=== PATIENT | male | born 1960 | race African-American/Black ===

== ENCOUNTER 2022-01-01 16:18 | Outpatient (REF) | payer SELFPAY ==
[2022-01-01 16:56] LABS: MANUAL DIFF FLAG NO
[2022-01-01 17:02] LABS: Basophils Percent Auto 0.7 % (0-2); Eosinophils Absolute Auto 0.1 X10*3/uL (0.0-0.4); Eosinophils Percent Auto 3.3 % (0-4); Hematocrit 46.3 % (42.0-52.0); Imm Gran Abs Auto 0.01 X10*3/uL (0.00-0.03); Imm Gran Pct Auto 0.2 % (0.0-0.4); Lymphocytes Absolute Auto 1.9 X10*3/uL (1.2-4.9); Lymphocytes Percent Auto 46.1 % (20-40); Mean Corpuscular HGB Conc 32.4 g/dl (31.0-36.0); Mean Corpuscular Hemoglobin 27.6 pg (27.0-33.0); Mean Corpuscular Volume 85.1 fL (80.0-98.0); Mean Platelet Volume 9.6 fL (9.4-12.4); Monocytes Absolute Auto 0.4 X10*3/uL (0.1-1.2); Monocytes Percent Auto 8.8 % (2-11); Neutrophils Absolute Auto 1.7 x10*3/uL (2.0-8.3); Neutrophils Percent Auto 40.9 % (45-73); Platelet Count 191 X10*3/uL (160-400); Red Blood Count 5.44 X10*6/uL (4.60-5.80); Red Cell Distribution Width 13.6 % (11.0-16.0); White Blood Count 4.2 X10*3/uL (4.8-10.8)
[2022-01-01 17:17] LABS: Alanine Aminotransferase 11 U/L (0-40); Albumin Level 4.6 g/dL (3.5-5.0); Alkaline Phosphatase 74 U/L (39-117); Anion Gap 16 (12-20); Aspartate Amino Transferase 16 U/L (5-37); Bilirubin Direct 0.4 mg/dL (0.0-0.5); Bilirubin Total 0.9 mg/dL (0.0-1.0); Blood Urea Nitrogen 18 mg/dL (9-16); Calcium 10.4 mg/dL (8.4-10.2); Carbon Dioxide 29 mmol/L (22-29); Chloride 101 mmol/L (96-108); Estimated Glomerular Filt Rate 49; Glucose Random 88 mg/dL (60-115); Potassium 4.2 mmol/L (3.3-5.1); Sodium 142 mmol/L (135-145); Total Protein 7.4 g/dL (6.5-8.0)
[2022-01-01 17:35] LABS: Syphilis Screen Nonreactive (Nonreactive)
[2022-01-01 17:37] LABS: PSA,Total (Free>4and<10) 0.55 ng/mL (0.00-4.00)
[2022-01-01 18:38] LABS: Appearance Urine CLEAR; Color Urine YELLOW; Glucose Urine UA NEG (NEG); Leukocyte Esterase Urine NEG (NEG); Nitrite Urine NEG (NEG); Specific Gravity - Urine 1.015 (1.005-1.025); Urine Blood NEG (NEG); Urine Ketones NEG (NEG); Urine Protein NEG (NEG-TRACE)
[2022-01-04 03:52] LABS: HBc Num1 6.36 S/CO (0.00-0.79); HBsAGNum1 0.18 S/CO (0.00-0.99); Hepatitis B Surface Antigen Negative (Negative); ~HepC Num1 0.07 S/CO (0.00-0.79); ~Hepatitis B Surface Antibody REACTIVE (Nonreactive); ~Hepatitis C Antibody Nonreactive (Nonreactive)
[2022-01-04 04:28] LABS: HBc Num2 6.24 S/CO; HBc Num3 6.33 S/CO; Hepatitis B Core Antibody Reactive (Nonreactive)
[2022-01-04 11:32] LABS: Absolute CD3 Count 1515 cells/uL (840-3060); Absolute CD4 Count 432 cells/uL (490-1740); Absolute CD8 Count 1080 cells/uL (180-1170); Absolute Lymphocytes 1845 cells/uL (850-3900); Percent CD3 Cells 82 % (57-85); Percent CD4 Cells 23 % (30-61); Percent CD8 Cells 59 % (12-42)
[2022-01-05 13:32] LABS: HIV RNA PCR Qn Copies <20 DETECTED copies/mL (NOT DETECTED); HIV RNA PCR Qn Log Copies <1.30 DETECTED (NOT DETECTED)
[2022-01-05 21:06] LABS: TS Negative Control Passed; TS Panel A 0; TS Panel B 0; TS Positive Control Passed; TSpotTB Negative (Negative)
[2022-01-06 05:01] LABS: Hepatitis A Antibody IgG Nonreactive (Nonreactive); ~Hepatitis A Antibody IgG 0.64 S/CO (0.00-0.99)
== END 2022-01-01 16:19 | disposition home or self-care (01) ==
LOC: HO.LAB 16:18
PROVIDERS: PCP Internal Medicine; Visit Provider Internal Medicine
DX: B20 Human immunodeficiency virus [HIV] disease (principal); M81.0 Age-related osteoporosis without current pathological fracture; K62.82 Dysplasia of anus; I10 Essential (primary) hypertension; Z86.19 Personal history of other infectious and parasitic diseases; Z86.73 Personal history of transient ischemic attack (TIA), and cerebral infarction without residual deficits; Z12.5 Encounter for screening for malignant neoplasm of prostate
CPT/HCPCS: 36415; 80048; 80076; 81003; 84153; 85025; 86359; 86360; 86481; 86704; 86706; 86708; 86780; 86803; 87340; 87536; 99202

== ENCOUNTER 2022-06-14 16:24 | Outpatient (REF) | payer OTHER, SELFPAY ==
[2022-06-14 16:45] LABS: MANUAL DIFF FLAG NO
[2022-06-14 18:00] LABS: Basophils Absolute Auto 0.1 X10*3/uL (0.0-0.2); Basophils Percent Auto 0.8 % (0-2); Eosinophils Absolute Auto 0.2 X10*3/uL (0.0-0.4); Eosinophils Percent Auto 2.8 % (0-4); Hematocrit 40.8 % (42.0-52.0); Hemoglobin 13.4 g/dl (14.0-18.0); Imm Gran Abs Auto 0.05 X10*3/uL (0.00-0.03); Imm Gran Pct Auto 0.8 % (0.0-0.4); Lymphocytes Absolute Auto 2.7 X10*3/uL (1.2-4.9); Lymphocytes Percent Auto 44.3 % (20-40); Mean Corpuscular HGB Conc 32.8 g/dl (31.0-36.0); Mean Corpuscular Hemoglobin 29.6 pg (27.0-33.0); Mean Corpuscular Volume 90.3 fL (80.0-98.0); Monocytes Absolute Auto 0.5 X10*3/uL (0.1-1.2); Monocytes Percent Auto 7.5 % (2-11); Neutrophils Absolute Auto 2.7 x10*3/uL (2.0-8.3); Neutrophils Percent Auto 43.8 % (45-73); Platelet Count 198 X10*3/uL (160-400); Red Blood Count 4.52 X10*6/uL (4.60-5.80); Red Cell Distribution Width 13.5 % (11.0-16.0); White Blood Count 6.1 X10*3/uL (4.8-10.8)
[2022-06-14 18:11] LABS: Alanine Aminotransferase 12 U/L (0-40); Albumin Level 4.5 g/dL (3.5-5.0); Alkaline Phosphatase 97 U/L (39-117); Anion Gap 14 (12-20); Aspartate Amino Transferase 19 U/L (5-37); Bilirubin Direct 0.5 mg/dL (0.0-0.5); Bilirubin Total 1.6 mg/dL (0.0-1.0); Blood Urea Nitrogen 17 mg/dL (9-16); Carbon Dioxide 28 mmol/L (22-29); Chloride 104 mmol/L (96-108); Estimated Glomerular Filt Rate 44; Glucose Random 87 mg/dL (60-115); Potassium 4.1 mmol/L (3.3-5.1); Sodium 142 mmol/L (135-145); Total Protein 7.2 g/dL (6.5-8.0)
[2022-06-14 18:24] LABS: Syphilis Screen Nonreactive (Nonreactive)
[2022-06-15 01:30] LABS: CT PCR NOT DETECTED (Not Detect.); NG PCR NOT DETECTED (Not Detect.)
[2022-06-15 12:53] LABS: Absolute CD3 Count 2128 cells/uL (840-3060); Absolute CD4 Count 557 cells/uL (490-1740); Absolute CD8 Count 1539 cells/uL (180-1170); Absolute Lymphocytes 2769 cells/uL (850-3900); CD4 CD8 Ratio 0.36 (0.86-5.00); Percent CD3 Cells 77 % (57-85); Percent CD4 Cells 20 % (30-61); Percent CD8 Cells 56 % (12-42)
[2022-06-16 07:58] LABS: ~HepC Num1 0.12 S/CO (0.00-0.79); ~Hepatitis C Antibody Nonreactive (Nonreactive)
[2022-06-17 17:33] LABS: HIV RNA PCR Qn Copies NOT DETECTED copies/mL (NOT DETECTED); HIV RNA PCR Qn Log Copies NOT DETECTED (NOT DETECTED)
== END 2022-06-14 16:25 | disposition home or self-care (01) ==
LOC: HO.LAB 16:24
PROVIDERS: PCP Internal Medicine; Visit Provider Internal Medicine
DX: B20 Human immunodeficiency virus [HIV] disease (principal)
CPT/HCPCS: 0353U; 80048; 80076; 85025; 86359; 86360; 86780; 86803; 87536

== ENCOUNTER → 2022-06-28 09:48 | Outpatient (BNVA) | payer OTHER, SELFPAY | PROVIDERS: PCP Internal Medicine; Visit Provider Internal Medicine | DX: B20 Human immunodeficiency virus [HIV] disease (principal) | CPT/HCPCS: 99212 ==

== ENCOUNTER 2022-12-22 08:11 | Outpatient (REF) | payer OTHER, SELFPAY ==
[2022-12-22 09:33] LABS: MANUAL DIFF FLAG NO
[2022-12-22 10:04] LABS: Hematocrit 43.9 % (42.0-52.0); Hemoglobin 13.9 g/dl (14.0-18.0); Imm Gran Pct Auto 0.3 % (0.0-0.4); Lymphocytes Percent Auto 53.4 % (20-40); Mean Corpuscular HGB Conc 31.7 g/dl (31.0-36.0); Mean Corpuscular Hemoglobin 29.5 pg (27.0-33.0); Mean Corpuscular Volume 93.2 fL (80.0-98.0); Mean Platelet Volume 10.1 fL (9.4-12.4); Monocytes Percent Auto 7.8 % (2-11); Neutrophils Percent Auto 31.2 % (45-73); Platelet Count 171 X10*3/uL (160-400); Red Blood Count 4.71 X10*6/uL (4.60-5.80); Red Cell Distribution Width 11.6 % (11.0-16.0); White Blood Count 3.8 X10*3/uL (4.8-10.8)
[2022-12-22 10:05] LABS: Basophils Absolute Auto 0.1 X10*3/uL (0.0-0.2); Basophils Percent Auto 1.3 % (0-2); Eosinophils Absolute Auto 0.2 X10*3/uL (0.0-0.4); Imm Gran Abs Auto 0.01 X10*3/uL (0.00-0.03); Lymphocytes Absolute Auto 2.1 X10*3/uL (1.2-4.9); Monocytes Absolute Auto 0.3 X10*3/uL (0.1-1.2); Neutrophils Absolute Auto 1.2 x10*3/uL (2.0-8.3)
[2022-12-22 10:52] LABS: Alanine Aminotransferase 14 U/L (0-40); Albumin Level 4.1 g/dL (3.5-5.0); Alkaline Phosphatase 88 U/L (39-117); Anion Gap 14 (12-20); Aspartate Amino Transferase 17 U/L (5-37); Bilirubin Direct 0.2 mg/dL (0.0-0.5); Bilirubin Total 0.3 mg/dL (0.0-1.0); Blood Urea Nitrogen 10 mg/dL (9-16); Carbon Dioxide 27 mmol/L (22-29); Chloride 105 mmol/L (96-108); Estimated Glomerular Filt Rate 45; Glucose Random 97 mg/dL (60-115); Potassium 3.6 mmol/L (3.3-5.1); Sodium 142 mmol/L (135-145); Total Protein 6.8 g/dL (6.5-8.0)
[2022-12-22 11:45] LABS: Syphilis Screen Nonreactive (Nonreactive)
[2022-12-23 12:48] LABS: CT PCR NOT DETECTED (Not Detect.); NG PCR NOT DETECTED (Not Detect.)
[2022-12-24 03:38] LABS: C. trachomatis RNA TMA NOT DETECTED (NOT DETECTED); N. gonorrhoeae RNA TMA NOT DETECTED (NOT DETECTED)
[2022-12-24 10:38] LABS: Absolute CD3 Count 1591 cells/uL (840-3060); Absolute CD4 Count 363 cells/uL (490-1740); Absolute CD8 Count 1226 cells/uL (180-1170); Absolute Lymphocytes 1968 cells/uL (850-3900); Percent CD3 Cells 81 % (57-85); Percent CD4 Cells 18 % (30-61); Percent CD8 Cells 62 % (12-42)
[2022-12-24 13:12] LABS: HIV RNA PCR Qn Copies NOT DETECTED copies/mL (NOT DETECTED); HIV RNA PCR Qn Log Copies NOT DETECTED (NOT DETECTED)
== END 2022-12-22 08:12 | disposition home or self-care (01) ==
LOC: HO.LAB 08:11
PROVIDERS: Absent Provider Internal Medicine; PCP Internal Medicine; Referring Provider Internal Medicine; Visit Provider Surgery
DX: B20 Human immunodeficiency virus [HIV] disease (principal); Z87.19 Personal history of other diseases of the digestive system
CPT/HCPCS: 0353U; 36415; 46600; 80048; 80076; 85025; 86359; 86360; 86780; 87491; 87536; 87591; 99202

== ENCOUNTER 2022-12-22 08:11 | Outpatient (AMB) | payer OTHER, SELFPAY ==
[2022-12-22 08:18] VITALS: BP 143/90; PULSE 53; BMI 24.3
--- NOTE | 2022-12-22 08:18 | MHC.OFFVIS ---
Intake Vital Signs 12/22/22 08:18 Height 5 ft 8 in Weight 160 lb BMI 24.3 BP 143/90 H Blood Pressure Location Rt brachial Position Sitting Pulse 53 Intake Visit Reasons: Malignant neoplasm of rectum Intake Note: This patient presents for an assessment for malignant neoplasm of the rectum. Patient c/o; denies rectal bleeding, pain or pressure. Supervisor Reclamation Required: No Accompanied by: Self / Same As Patient Allergies No Known Allergies Allergy (Verified 12/22/22 08:24) Medication List - Last Reconciled 12/22/22 by Jevon Caruso MD alendronate 70 mg PO QWEEK aspirin 81 mg PO DAILY atorvastatin 80 mg PO BEDTIME calcium carb-vitamin D3-vit K2 500 mg calcium- 200 unit-90 mcg tabs PO cholecalciferol (vitamin D3) 50 mcg PO DAILY cyanocobalamin (vitamin B-12) 1,000 mcg PO DAILY dolutegravir 50 mg PO DAILY dolutegravir-rilpivirine 50-25 mg (Juluca) 1 tab PO DAILY 90 days hydrochlorothiazide 25 mg PO DAILY loratadine 10 mg PO DAILY magnesium citrate 100 mg PO DAILY metoprolol succinate ER 50 mg PO DAILY HPI Malignant neoplasm of rectum HPI Details 62-year-old male referred for a history of AIN 3. He has a history of HIV, CVA, hypertension and had undergone high-resolution anoscopy in 2018 which showed AIN 3. This had been excise but he had positive margins at that time so a repeat HRA was done with further excision at the left lateral anal margin. This time, there was negative margins and he continued to have had [facility]. His last 1 was in November,. He had recently moved the area and therefore referred to me for surveillance of his history of AIN III. He denies any comes with bowel movements. He denies any blood per rectum. He does admit to have history of anal receptive intercourse but has had a single partner for 17 years. [facility] Medical History (Updated 12/22/22 @ 08:56 by Jevon Caruso MD) Anal dysplasia H/O chlamydia infection H/O: CVA (cerebrovascular accident) History of anal dysplasia HIV (human immunodeficiency virus infection) Hypertension Osteoporosis Surgical History History of testicular surgery Family History Mother Lung cancer Father Prostate cancer Social History Alcohol intake: current Alcohol intake frequency: holidays/special occasions only Patient Tobacco Use Status: Never used Tobacco Review of Systems Const Denies chills and Denies fever(s) Card Denies chest pain, Denies dyspnea and Denies dyspnea on exertion Resp Denies cough, Denies dyspnea and Denies dyspnea on exertion GI Denies hematochezia and Denies change in bowel habits Denies hematuria and Denies difficulty urinating Musc Denies back pain and Denies limited range of motion Neuro Denies focal weakness and Denies convulsions Psych Denies depression and Denies mood swings Physical Exam Vital Signs: Last Vital Signs Pulse 53 12/22/22 08:18 BP 143/90 H 12/22/22 08:18 BMI result Body Mass Index 24.3 Const General: comfortable and no acute distress Orientation/consciousness: patient oriented x3 Neck Neck: Yes no lymphadenopathy Resp Auscultation: clear to auscultation bilaterally Cardio Rhythm: regular rhythm GI Other: Rectal exam shows small external hemorrhoids on both the left and right side, anoscopy as described Palpation (GI): Soft to palpation, nontender and no guarding Neuro General: patient oriented x3 Office Procedures Anoscopy He was in chris-knife position. The anoscope was gently inserted and a full examination of the entire anal canal was done. There were no lesions seen. There was no abnormal looking mucosa or or anoderm. There was no fissure nor ulceration. He did have small internal external hemorrhoids. There was no induration or tenderness on digital exam. [id number] Assessment & Plan Assessment & Plan (1) History of anal dysplasia: Code(s): Z87.19 - Personal history of other diseases of the digestive system Plan: He had a history of AIN 3 in 2018. He has had high-resolution anoscopy since 2019 which have been negative any suggestion of any residual or recurrent lesion. I repeated his anoscopy. Findings are unremarkable without any normal-looking mucosa or anoderm. I explained to him that literature has shown that as long as patient's work follow closely with regular office visits every 3-12 months for exam and anoscopy and biopsy all of new or suspicious lesions, it is rare that there is note of progression of the dysplasia to cancer. I therefore explained to him that since he is new to me, I would repeat the anoscopy in 6 months. He says he understands the plan and is comfortable with this. Coding Level of Care Code New Pt Level 4 (68080) Diagnoses History of anal dysplasia Z87.19 CPT Codes Details - CPT: 16061-[id number] ([id number])
== END 2022-12-22 08:53 | disposition home or self-care (01) ==
PROVIDERS: PCP Internal Medicine; Referring Provider Internal Medicine; Visit Provider Surgery
DX: Z87.19 Personal history of other diseases of the digestive system (principal)
CPT/HCPCS: 46600; 99204

== ENCOUNTER 2022-12-27 10:51 | Outpatient (AMB) | payer OTHER, SELFPAY ==
--- NOTE | 2022-12-27 11:05 | MHC.OFFVIS ---
Intake Vital Signs 12/27/22 11:06 Height 5 ft 8 in Weight 162 lb BMI 24.6 BP 148/86 H Pulse 62 Pulse Oximetry (%) 99 Intake Visit Reasons: 6 mth. F/U Allergies No Known Allergies Allergy (Verified 12/27/22 11:05) HPI 6 mth. F/U HPI Details He is here for evaluation HIV care. He has been taking Juluca daily. On 12/22 his CD4 count is 363 and viral load undetectable. He does have osteoporosis and has been taking alendronate. He has no concerns. He does get GI evaluation screen rectal cancer Pap. [facility] Medical History Anal dysplasia H/O chlamydia infection H/O: CVA (cerebrovascular accident) History of anal dysplasia HIV (human immunodeficiency virus infection) Hypertension Osteoporosis Surgical History History of testicular surgery Family History Mother Lung cancer Father Prostate cancer Social History Alcohol intake: current Alcohol intake frequency: holidays/special occasions only Patient Tobacco Use Status: Never used Tobacco Review of Systems Const All systems reviewed & are unremarkable except as noted in HPI and below Physical Exam Vital Signs: Last Vital Signs Pulse 62 12/27/22 11:06 BP 148/86 H 12/27/22 11:06 Pulse Ox 99 12/27/22 11:06 BMI result Body Mass Index 24.6 Const General: cooperative Orientation/consciousness: patient oriented x3 HEENT Head: Yes normal to inspection Mouth: Normal oral and palatal mucosa present Eyes General: appearance normal, both eyes and all related structures Pupils: Equal, round and reactive pupils present Resp Effort & Inspection: normal respiratory effort Cardio Rate: regular rate Rhythm: regular rhythm GI Palpation (GI): Soft to palpation and nontender General: Yes no CVA tenderness Back/Spine/Pelvis Back: no CVA tenderness Skin General skin exam: no rashes or lesions noted Neuro General: patient oriented x3 Cranial nerves: Yes CN's II-XII intact bilaterally and Yes Equal, round and reactive pupils present Extrem General: Yes normal to inspection Psych Appearance: grossly normal Assessment & Plan Assessment & Plan (1) HIV (human immunodeficiency virus infection): Comment: He is doing well and has no complaints CD4 count and viral load are appropriate Code(s): B20 - Human immunodeficiency virus [HIV] disease Plan: Renew Juluca (dolutegravir/rilpivirine for six months. Labs ordered six months PCP should check digital rectal exam and PSA. Be sure colon eval/rectal Pap UTD. See in six months. (2) History of anal dysplasia: Code(s): Z87.19 - Personal history of other diseases of the digestive system Orders: Orders Lymphocyte Subset Panel 3 6 Months B20 - Human immunodeficiency virus [HIV] disease Hepatitis C Antibody 6 Months B20 - Human immunodeficiency virus [HIV] disease HIV-1 RNA QN PCR Expanded 6 Months B20 - Human immunodeficiency virus [HIV] disease Syphilis Screen 6 Months B20 - Human immunodeficiency virus [HIV] disease Medications: Refilled dolutegravir-rilpivirine 50-25 mg (Juluca) must administer with a meal/food 1 tab PO DAILY 90 tabs 1RF 90 days Coding Level of Care Code Est Pt Level 4 (63334) Diagnoses HIV (human immunodeficiency virus infection) B20 History of anal dysplasia Z87.19
[2022-12-27 11:06] VITALS: BP 148/86; PULSE 62; O2SAT 99; BMI 24.6
== END 2022-12-27 13:12 | disposition home or self-care (01) ==
LOC: HO.HID 10:51
PROVIDERS: PCP Internal Medicine; Visit Provider Internal Medicine
DX: B20 Human immunodeficiency virus [HIV] disease (principal); Z87.19 Personal history of other diseases of the digestive system
CPT/HCPCS: 99214

== ENCOUNTER → 2022-12-27 10:51 | Outpatient (BNVA) | payer OTHER, SELFPAY | PROVIDERS: PCP Internal Medicine; Visit Provider Internal Medicine | DX: B20 Human immunodeficiency virus [HIV] disease (principal); Z87.19 Personal history of other diseases of the digestive system | CPT/HCPCS: 99212 ==

== ENCOUNTER 2023-06-21 13:42 | Outpatient (REF) | payer OTHER, SELFPAY ==
[2023-06-21 15:03] LABS: Syphilis Screen Nonreactive (Nonreactive)
[2023-06-22 05:55] LABS: ~HepC Num1 0.08 S/CO (0.00-0.79); ~Hepatitis C Antibody Nonreactive (Nonreactive)
[2023-06-22 10:13] LABS: Absolute CD3 Count 1585 cells/uL (840-3060); Absolute CD4 Count 383 cells/uL (490-1740); Absolute CD8 Count 1193 cells/uL (180-1170); Absolute Lymphocytes 1974 cells/uL (850-3900); CD4 CD8 Ratio 0.32 (0.86-5.00); Percent CD3 Cells 80 % (57-85); Percent CD4 Cells 19 % (30-61); Percent CD8 Cells 60 % (12-42)
[2023-06-23 14:09] LABS: HIV RNA PCR Qn Copies NOT DETECTED copies/mL (NOT DETECTED); HIV RNA PCR Qn Log Copies NOT DETECTED (NOT DETECTED)
== END 2023-06-21 13:43 | disposition home or self-care (01) ==
LOC: HO.LAB 13:42
PROVIDERS: PCP Internal Medicine; Visit Provider Internal Medicine
DX: B20 Human immunodeficiency virus [HIV] disease (principal)
CPT/HCPCS: 36415; 86359; 86360; 86780; 86803; 87536

== ENCOUNTER 2023-06-27 10:41 | Outpatient (AMB) | payer OTHER, SELFPAY ==
[2023-06-27 11:02] VITALS: BP 130/87; PULSE 59; BMI 24.6
--- NOTE | 2023-06-27 11:02 | MHC.OFFVIS ---
Intake Vital Signs 06/27/23 11:02 Height 5 ft 8 in Weight 162 lb BMI 24.6 BP 130/87 Blood Pressure Location Rt brachial Position Sitting Pulse 59 Intake Visit Reasons: 6 month fu, malignant neoplasm of rectum Intake Note: This patient presents for a six month follow-up assessment for malignant neoplasm of rectum. Patient c/o; report no complaints at this time. 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 He had exci shaw of a lesion i n 2018 in the anal canal which showe d AIN 3 and had po sitive margins at at that time. He was in [place] then. 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 He had move d to the area and I therefore saw kristi roberts last year. I bella cecilia done an anoscopy 6 months ago whic h did not reveal a ny lesions. He de nies any problems with bowel movemen ts. He denies any blood per rectum. He admits to [facility] ourse with a singl e partner. . [facility] Medical History Anal dysplasia H/O chlamydia infection H/O: CVA (cerebrovascular accident) History of anal dysplasia HIV (human immunodeficiency virus infection) Hypertension Osteoporosis Surgical History History of testicular surgery Family History Mother Lung cancer Father Prostate cancer Social History Alcohol intake: current Alcohol intake frequency: holidays/special occasions only Patient Tobacco Use Status: Never used Tobacco Review of Systems Const Denies chills and Denies fever(s) Card Denies chest pain, Denies dyspnea and Denies dyspnea on exertion Resp Denies cough, Denies dyspnea and Denies dyspnea on exertion GI Denies hematochezia and Denies change in bowel habits Denies hematuria and Denies difficulty urinating Musc Denies back pain and Denies limited range of motion Neuro Denies focal weakness and Denies convulsions Psych Denies depression and Denies mood swings Physical Exam Vital Signs: Last Vital Signs Pulse 59 06/27/23 11:02 BP 130/87 06/27/23 11:02 BMI result Body Mass Index 24.6 Const General: comfortable and no acute distress Orientation/consciousness: patient oriented x3 Neck Neck: Yes no lymphadenopathy Resp Auscultation: clear to auscultation bilaterally Cardio Rhythm: regular rhythm GI Other: Rectal exam shows external hemorrhoids on both the left and right side, non bulky, no perianal lesions Palpation (GI): Soft to palpation, nontender and no guarding Neuro General: patient oriented x3 Office Procedures Anoscopy He was in chris-knife position. The anoscope was gently inserted. A full examination of the anal canal was done. Had mixed internal external hemorrhoids on both the left and right side. There were no lesions. There was no obvious changes in the anal lining. There was no induration on digital exam. There was no fissure or ulceration [id number] Assessment & Plan Assessment & Plan (1) History of anal dysplasia: Code(s): Z87.19 - Personal history of other diseases of the digestive system Plan: Rectal exam and anoscopy today does not reveal any suspicious lesions or any ulceration. He does have hemorrhoids. I would recommend seeing him again in about 6 months to repeat his anoscopy. Depending on findings then, we may be able to extend surveillance interval to about 12 months thereafter. He is comfortable with the plan above. Coding Level of Care Code Est Pt Level 3 (18942) Diagnoses History of anal dysplasia Z87.19 CPT Codes Details - CPT: 09053-[id number] ([id number])
== END 2023-06-27 11:22 | disposition home or self-care (01) ==
PROVIDERS: PCP Internal Medicine; Visit Provider Surgery
DX: K64.4 Residual hemorrhoidal skin tags (principal); Z86.002 Personal history of in-situ neoplasm of other and unspecified genital organs
CPT/HCPCS: 46600; 99213

== ENCOUNTER → 2023-06-27 10:41 | Outpatient (BNVA) | payer OTHER, SELFPAY | PROVIDERS: PCP Internal Medicine; Visit Provider Surgery | DX: K64.8 Other hemorrhoids (principal); K64.4 Residual hemorrhoidal skin tags; Z87.19 Personal history of other diseases of the digestive system | CPT/HCPCS: 46600; 99212 ==

== ENCOUNTER 2023-07-01 11:19 | Outpatient (AMB) | payer OTHER, SELFPAY ==
--- NOTE | 2023-07-01 11:29 | MHC.OFFVIS ---
Intake Vital Signs 07/01/23 11:34 Height 5 ft 8 in Weight 164 lb BMI 24.9 Pulse 84 Pulse Source Pulse Oximeter Pulse Oximetry (%) 98 Oxygen Delivery Method Room Air Intake Visit Reasons: 6 mth lab Allergies No Known Allergies Allergy (Verified 07/01/23 11:35) HPI HPI Comments History of Present Illness Details He has CD4 count of 383 and viral load undetectable, He has no compliaints, PFSH Medical History History of anal dysplasia Osteoporosis H/O chlamydia infection Anal dysplasia Hypertension H/O: CVA (cerebrovascular accident) HIV (human immunodeficiency virus infection) Surgical History History of testicular surgery Family History Mother Lung cancer Father Prostate cancer Social History Alcohol intake: current Alcohol intake frequency: holidays/special occasions only Patient Tobacco Use Status: Never used Tobacco Review of Systems Const All systems reviewed & are unremarkable except as noted in HPI and below Physical Exam Vital Signs: Last Vital Signs Pulse 84 07/01/23 11:34 Pulse Ox 98 07/01/23 11:34 Oxygen Delivery Method Room Air 07/01/23 11:34 BMI result Body Mass Index 24.9 Const General: cooperative Orientation/consciousness: patient oriented x3 HEENT Head: Yes normal to inspection Mouth: Normal oral and palatal mucosa present Eyes General: appearance normal, both eyes and all related structures Pupils: Equal, round and reactive pupils present Resp Effort & Inspection: normal respiratory effort Cardio Rate: regular rate Rhythm: regular rhythm GI Palpation (GI): Soft to palpation and nontender General: Yes no CVA tenderness Back/Spine/Pelvis Back: no CVA tenderness Skin General skin exam: no rashes or lesions noted Neuro General: patient oriented x3 Cranial nerves: Yes CN's II-XII intact bilaterally and Yes Equal, round and reactive pupils present Extrem General: Yes normal to inspection Psych Appearance: grossly normal Assessment & Plan Assessment & Plan (1) HIV (human immunodeficiency virus infection): Comment: He is doing well and has no complaints CD4 count and viral load are appropriate Code(s): B20 - Human immunodeficiency virus [HIV] disease Plan: Continue Caterina See in six months with labs before. Coding Level of Care Code Est Pt Level 4 (13469) Diagnoses HIV (human immunodeficiency virus infection) B20
[2023-07-01 11:34] VITALS: PULSE 84; O2SAT 98; BMI 24.9
== END 2023-07-01 12:02 | disposition home or self-care (01) ==
LOC: HO.HID 11:19
PROVIDERS: PCP Internal Medicine; Referring Provider Internal Medicine; Visit Provider Internal Medicine
DX: B20 Human immunodeficiency virus [HIV] disease (principal)
CPT/HCPCS: 99214

== ENCOUNTER → 2023-07-01 11:19 | Outpatient (BNVA) | payer OTHER, SELFPAY | PROVIDERS: PCP Internal Medicine; Visit Provider Internal Medicine | DX: B20 Human immunodeficiency virus [HIV] disease (principal) | CPT/HCPCS: 99212 ==

== ENCOUNTER 2023-08-15 18:11 | Outpatient (REF) | payer OTHER, SELFPAY ==
--- NOTE | ~2023-08-15 | MR_ITS ---
EXAMINATION: MR SHOULDER WITHOUT CONTRAST, RIGHT CLINICAL INFORMATION: Right shoulder pain. COMPARISON: None available. TECHNIQUE: MRI of the shoulder without contrast was performed on a high-field scanner. FINDINGS: ROTATOR CUFF: Moderate supraspinatus and more mild infraspinatus tendinosis. Hezs-hyfk-khzambbgd articular surface tearing involving the entirety of the supraspinatus tendon and extending into the anterior aspect of the infraspinatus tendon measuring up to 3.1 x 4.0 cm (AP x ML). There may be small full-thickness components to the tear anteriorly. Dcoospdq-jn-qgomhr subscapularis tendinosis with articular surface and intrasubstance partial tearing measuring up to 3.7 cm in ML dimension. Probable small full-thickness component to the tear superiorly. No muscle atrophy or fatty infiltration. BICEPS: Flattening and attenuation of the intra-articular long head biceps tendon, consistent with longitudinal partial tearing. CORACOACROMIAL ARCH: The undersurface of the acromion is curved with tiny subacromial spurs. Moderate acromioclavicular osteoarthritis. Trace fluid within the subacromial-subdeltoid bursa, likely indicating a small full-thickness component to the rotator cuff tendon tear. LABRUM/CAPSULE: No labral tear. Intact inferior joint capsule. GLENOHUMERAL JOINT/MARROW: Intact articular cartilage. Srdbg-af-zaoypzmm joint effusion with synovitis. MR/MR shoulder RT wo con IMPRESSION: 1. Moderate supraspinatus and more mild infraspinatus tendinosis. Ywin-gxwo-nezcbsxdv articular surface tearing involving the entirety of the supraspinatus tendon extending into the anterior aspect of the infraspinatus tendon measuring 3.1 x 4.0 cm (AP x ML). There may be small full-thickness components to the tear anteriorly. Gfntckdx-rm-degyhg subscapularis tendinosis with articular surface and intrasubstance partial tearing measuring 3.7 cm in ML dimension. Probable small full-thickness component to the tear superiorly. 2. Longitudinal partial tearing of the intra-articular long head biceps tendon. 3. Moderate acromioclavicular osteoarthritis with tiny subacromial spurs. 4. Xrhqn-gt-upbmqhjg glenohumeral joint effusion with synovitis.
== END 2023-08-15 18:12 | disposition home or self-care (01) ==
LOC: HO.MRI 18:11
PROVIDERS: PCP Internal Medicine; Visit Provider Family Medicine
DX: M25.511 Pain in right shoulder (principal)
CPT/HCPCS: 73221

== ENCOUNTER 2023-12-29 09:36 | Outpatient (REF) | payer OTHER, SELFPAY ==
[2023-12-29 11:19] LABS: ~HepC Num1 0.13 S/CO (0.00-0.79); ~Hepatitis C Antibody Nonreactive (Nonreactive)
[2023-12-30 11:59] LABS: RPR Rapid Plasma Reagin NON-REACTIVE (NON-REACTIVE)
[2023-12-31 15:29] LABS: HIV RNA PCR Qn Copies NOT DETECTED copies/mL (NOT DETECTED); HIV RNA PCR Qn Log Copies NOT DETECTED (NOT DETECTED)
[2024-01-03 11:48] LABS: Absolute CD3 Count 1827 cells/uL (840-3060); Absolute CD4 Count 431 cells/uL (490-1740); Absolute CD8 Count 1375 cells/uL (180-1170); Absolute Lymphocytes 2211 cells/uL (850-3900); CD4 CD8 Ratio 0.31 (0.86-5.00); Percent CD3 Cells 83 % (57-85); Percent CD4 Cells 19 % (30-61); Percent CD8 Cells 62 % (12-42)
== END 2023-12-29 09:37 | disposition home or self-care (01) ==
LOC: HO.LAB 09:36
PROVIDERS: PCP Physician Assistant Medical; Visit Provider Internal Medicine
DX: B20 Human immunodeficiency virus [HIV] disease (principal); Z87.19 Personal history of other diseases of the digestive system
CPT/HCPCS: 36415; 46600; 86359; 86360; 86592; 86803; 87536; 99212

== ENCOUNTER 2023-12-29 09:56 | Outpatient (AMB) | payer OTHER, SELFPAY ==
--- NOTE | 2023-12-29 10:00 | MHC.OFFVIS ---
Vital Signs 12/29/23 10:01 Height 5 ft 8 in Weight 158 lb BMI 24.0 BP 140/88 H Blood Pressure Location Rt brachial Position Sitting Pulse 57 Intake Visit Reasons: 6 month fu, malignant neoplasm of rectum Intake Note: This patient presents for six month follow-up for malignant neoplasm of rectum, anoscopy. Pt c/o; reports no complaints. 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 He had excision of this at that time and was told he had positive margins. He had moved to the area. I had done his anoscopy last June, and this was unremarkable. I recommended a follow-up in about 6 weeks. He denies any new complaints. He denies any problems with his anus at this time. [facility] Medical History History of anal dysplasia Osteoporosis H/O chlamydia infection Anal dysplasia Hypertension H/O: CVA (cerebrovascular accident) HIV (human immunodeficiency virus infection) Surgical History History of testicular surgery Family History Mother Lung cancer Father Prostate cancer Social History Alcohol intake: current Alcohol intake frequency: holidays/special occasions only Patient Tobacco Use Status: Never used Tobacco Review of Systems Const Denies chills and Denies fever(s) Card Denies chest pain, Denies dyspnea and Denies dyspnea on exertion Resp Denies cough, Denies dyspnea and Denies dyspnea on exertion GI Denies hematochezia and Denies change in bowel habits Denies hematuria and Denies difficulty urinating Musc Denies back pain and Denies limited range of motion Neuro Denies focal weakness and Denies convulsions Psych Denies depression and Denies mood swings Physical Exam Const General: comfortable and no acute distress Resp Effort & Inspection: normal respiratory effort GI Other: Rectal exam shows small external hemorrhoids, on the left and right side. There were no skin lesions in the perianal area Office Procedures Anoscopy He was in chris-knife position. The anoscope was gently inserted. A full examination of the anal canal was done. He did have internal and external hemorrhoids, non bulky, on both the left and right side. There were no obvious lesions. No fissure or ulceration was seen. There was no bleeding. There was no induration on digital exam [id number] Assessment & Plan Assessment & Plan (1) History of anal dysplasia: Code(s): Z87.19 - Personal history of other diseases of the digestive system Category: Medical Plan: Anoscopy does not reveal any lesions or any suggestion of dysplasia. He does have internal external hemorrhoids. This appeared to be unchanged from before. He denies any anal complaints It has been 6 years since he had excision of his AIN 3 in [place]. Since his anoscopy so been unremarkable, I told him that we can extend interval to about 1 year. He says he is comfortable with this. I did tell him that if he has any concerns down the line, he can come to the office earlier than that. Coding Level of Care Code Est Pt Level 3 (10176) Diagnoses History of anal dysplasia Z87.19 CPT Codes Details - CPT: [id number] ([id number])
[2023-12-29 10:01] VITALS: BP 140/88; PULSE 57; BMI 24.0
== END 2023-12-29 10:18 | disposition home or self-care (01) ==
PROVIDERS: PCP Internal Medicine; Visit Provider Surgery
DX: Z87.19 Personal history of other diseases of the digestive system (principal)
CPT/HCPCS: 46600; 99213

== ENCOUNTER 2024-01-09 13:12 | Outpatient (AMB) | payer OTHER, SELFPAY ==
[2024-01-09 13:18] VITALS: PULSE 62; O2SAT 95; BMI 24.5
--- NOTE | 2024-01-09 13:18 | A.OFFVIS_ITS ---
Vital Signs 01/09/24 13:18 Height 5 ft 8 in Weight 161 lb BMI 24.5 Pulse 62 Pulse Source Pulse Oximeter Pulse Oximetry (%) 95 Oxygen Delivery Method Room Air Intake Visit Reasons: follow up hiv labs Allergies lisinopril Allergy (Unknown, Uncoded 01/09/24 13:28) swollen legs HPI HPI follow up hiv labs: Details: He has been doing well. He has CD4 count of 431 and viral load undetectable on 12/28. He has been taking Juluca [facility] Medical History History of anal dysplasia Osteoporosis H/O chlamydia infection Anal dysplasia Hypertension H/O: CVA (cerebrovascular accident) HIV (human immunodeficiency virus infection) Surgical History History of testicular surgery Family History Mother Lung cancer Father Prostate cancer Social History Alcohol intake: current Alcohol intake frequency: holidays/special occasions only Patient Tobacco Use Status: Never used Tobacco Review of Systems Const All systems reviewed & are unremarkable except as noted in HPI and below Physical Exam Vital Signs: Last Vital Signs Pulse 62 01/09/24 13:18 Pulse Ox 95 01/09/24 13:18 Oxygen Delivery Method Room Air 01/09/24 13:18 BMI result Body Mass Index 24.5 Const General: cooperative HEENT Head: Yes normal to inspection Face and sinus: Yes normal facial exam Mouth: Normal oral and palatal mucosa present Teeth and gingiva: dentition normal Eyes General: appearance normal, both eyes and all related structures Pupils: Equal, round and reactive pupils present Resp Effort & Inspection: normal respiratory effort Cardio Rate: regular rate Rhythm: regular rhythm GI Palpation (GI): Soft to palpation and nontender General: Yes no CVA tenderness Back/Spine/Pelvis Back: no CVA tenderness Skin General skin exam: no rashes or lesions noted Neuro General: moves all extremities Cranial nerves: Yes Equal, round and reactive pupils present Extrem General: Yes normal to inspection Psych Appearance: grossly normal Assessment & Plan Assessment & Plan (1) HIV (human immunodeficiency virus infection): Comment: He is doing well and has no complaints CD4 count and viral load are appropriate Code(s): B20 - Human immunodeficiency virus [HIV] disease Category: Medical (2) History of anal dysplasia: Comment: Would continue Juluca Code(s): Z87.19 - Personal history of other diseases of the digestive system Category: Medical Plan: Check HIV viral load and CD4 count in six months. Continue Juluca Plan Followup anal Pap will check with his surgeon Medications: Refilled dolutegravir-rilpivirine 50-25 mg (Caterina) must administer with a meal/food 1 tab PO DAILY 90 tabs 1RF 90 days Coding Level of Care Code Est Pt Level 4 (95420) Diagnoses HIV (human immunodeficiency virus infection) B20 History of anal dysplasia Z87.19
== END 2024-01-09 14:45 | disposition home or self-care (01) ==
LOC: HO.HID 13:13
PROVIDERS: PCP Physician Assistant Medical; Visit Provider Internal Medicine
DX: B20 Human immunodeficiency virus [HIV] disease (principal); Z87.19 Personal history of other diseases of the digestive system
CPT/HCPCS: 99214

== ENCOUNTER → 2024-01-09 13:12 | Outpatient (BNVA) | payer OTHER, SELFPAY | PROVIDERS: PCP Physician Assistant Medical; Visit Provider Internal Medicine | DX: B20 Human immunodeficiency virus [HIV] disease (principal); Z87.19 Personal history of other diseases of the digestive system | CPT/HCPCS: 99212 ==

== ENCOUNTER 2024-06-23 10:03 | Outpatient (REF) | payer OTHER, SELFPAY ==
--- OUTSIDE RECORDS SUMMARY | 2024-06-23 10:06 | XMS_ITS | Clinical Summary ---
Author Organization [facility] Address [address] [place] [address] Care Team Providers Care Visual Merchandising Coordinator Name Role Phone Unavailable Primary Care Provider Unavailabl e Allergies Active Allergy Reactions Criticality Noted Date Comments Lisinopril Hives 09/11/2013 Medications alendronate (Fosamax) 70 MG tablet Take 70 mg by mouth. 06/01/2023 Active aspirin 81 MG chewable tablet 81 mg. 01/19/2011 Act raven atorvastatin (Lipitor) 80 MG tablet Take 80 mg by mouth. 06/01/2023 Active cholecalciferol (Vitamin D-3) 50 MCG (1999 UT) tablet Take 50 mcg by mouth. 06/01/2023 Active dolutegravir-ril pivirine (Juluca) 50-25 MG tablet Take by mouth. 07/08/2023 Active hydroCHLOROthiaz wallace (HYDRODiuril) 25 MG tablet Take 12.5 mg by mouth. 06/01/2023 Active metoprolol succinate XL (Toprol-XL) 25 MG 24 hr tablet Take 25 mg by mouth. 06/01/2023 Active Social History Tobacco Use Types Packs/Day Years Used Date Smoking Tobacco: Never Smokeless Tobacco: Never Tobacco Cessation:Counseling Given: Not Answered Sex and Gender Information Value Date Recorded Sex Assigned at Male 09/08/2023 1:32 PM EDT Legal Sex Male 1:28 PM EDT Gender Identity Male 09/08/2023 1:32 PM EDT Sexual Orientation Choose not to disclose 2023 1:32 PM EDT Last Filed Vital Signs Vital Sign Reading Time Taken Comments Blood Pressure 137/75 12/01/2023 10:12 AM EDT Pulse 65 12/01/2023 10:12 AM EDT Temperature - - Respiratory Rate - - Oxygen Saturation - - Inhaled Oxygen Concentration - - Weight - - Height - - Body Mass Index - - Plan of Treatment Health Maintenance Due Date Last Done Comments CT Colonography 1961 Colonoscopy 1961 Colorectal Cancer Screening 1961 Dental Prophylaxis 1961 Depression Screening 1961 FIT DNA/Cologuard 1961 FIT 1961 FOBT 1961 HIV Screening 1961 Lipid Panel 1961 SDOH Screening 1961 Sigmoidoscopy 1961 Alcohol/Substance Use Screening 1973 Hepatitis C Screening 1979 Hepatitis A Vaccines (2 of 2 - Risk 2-dose series) 10/12/2011 04/13/2011 Hepatitis B Vaccines (1 of 3 - Risk 3-dose series) 2021 RSV Patients and Patients Aged 60 years or older (1 - Risk 60-74 years 1-dose series) 2021 Pneumococcal Vaccine: 50+ Years (3 of 3 - PPSV23, PCV20 or PCV21) 01/31/2023 01/31/2018, 07/24/2013 Pneumococcal Vaccine: Pediatrics (0 to 5 Years) and At-Risk Patients (6 to 49) Years) (3 of 3 - PPSV23 or PCV20) 01/31/2023 01/31/2018, 07/24/2013 COVID-19 Vaccine ( season) 2024 05/25/2022, 10/05/2021, 04/20/2021, Additional history exists Influenza Vaccine (#1) 2024 , 02/29/2020, 02/09/2019, Additional history exists Dental Oral Exam 06/03/2024 12/01/2023 Tobacco Screening 11/30/2024 12/01/2023 Dental X-Ray: Bitewings 12/01/2024 12/01/2023 DTaP/Tdap/Td Vaccines (6 - Td or Tdap) 05/23/2025 05/23/2015, 05/23/2015, 05/23/2015, Additional history exists Dental X-Ray: Full Mouth 12/01/2026 12/01/2023 Meningococcal Vaccine (3 - Risk 2-dose series) 03/13/2027 03/13/2022, 03/13/2020, 12/20/2019 Zoster Vaccines Completed 10/27/2017, 06/30/2017 HIB Vaccines Aged Out No longer eligi ble based on patient's age to complete this topic HPV Vaccines Aged Out No longer eligi ble based on patient's age to complete this topic IPV Vaccines Aged Out No longer eligi ble based on patient's age to complete this topic RSV under 20 months Aged Out No longe r eligible based on patient's age to complete this topic Rotavirus Vaccines Aged Out No longer eligible based on patient's age to complete this topic Procedures Procedure Name Priority Date/Time Associated Diagnosis Comments DIAGNOSTIC - DIAGNOSTIC IMAGING - INTRAORAL - COMPREHENSIVE SERIES OF RADIOGRAPHIC IMAGES Routine 12/01/2023 10:00 AM EDT COMPREHENSIVE ORAL EVALUATION - NEW OR ESTABLISHED PATIENT Routine 12/01/2023 10:00 AM EDT from Last 3 Months or Most Recently Relevant to Health Maintenance
[2024-06-23 11:21] LABS: ~HepC Num1 0.09 S/CO (0.00-0.79); ~Hepatitis C Antibody Nonreactive (Nonreactive)
[2024-06-23 11:24] LABS: Syphilis Screen Nonreactive (Nonreactive)
[2024-06-27 16:59] LABS: Absolute CD3 Count 1623 cells/uL (840-3060); Absolute CD4 Count 311 cells/uL (490-1740); Absolute CD8 Count 1309 cells/uL (180-1170); Absolute Lymphocytes 2012 cells/uL (850-3900); CD4 CD8 Ratio 0.24 (0.86-5.00); Percent CD3 Cells 81 % (57-85); Percent CD4 Cells 15 % (30-61); Percent CD8 Cells 65 % (12-42)
[2024-06-28 13:39] LABS: HIV RNA PCR Qn Copies NOT DETECTED copies/mL (NOT DETECTED); HIV RNA PCR Qn Log Copies NOT DETECTED (NOT DETECTED)
== END 2024-06-23 10:04 | disposition home or self-care (01) ==
LOC: HO.LAB 10:03
PROVIDERS: PCP Physician Assistant Medical; Visit Provider Internal Medicine
DX: B20 Human immunodeficiency virus [HIV] disease (principal)
CPT/HCPCS: 36415; 86359; 86360; 86780; 86803; 87536

== ENCOUNTER 2024-07-02 14:06 | Outpatient (AMB) | payer OTHER, SELFPAY ==
[2024-07-02 14:24] VITALS: BP 121/79; PULSE 70; O2SAT 94; BMI 24.8
--- NOTE | 2024-07-02 14:24 | MHC.OFFVIS ---
Vital Signs 07/02/24 14:24 Height 5 ft 8 in Weight 163 lb BMI 24.8 BP 121/79 Blood Pressure Location Rt brachial Position Sitting Pulse 70 Pulse Source Pulse Oximeter Pulse Oximetry (%) 94 Oxygen Delivery Method Room Air Intake Visit Reasons: follow up labs/hiv/jaluca med Allergies lisinopril Allergy (Unknown, Uncoded 07/02/24 14:25) swollen legs HPI HPI follow up labs/hiv/jaluca med: Details: He is doing well on Juluca. He takes atorvastatin and alendronate. His renal function is same. He has CD4 count 311 and viral load on 06/24 undetectable. [facility] Medical History History of anal dysplasia Osteoporosis H/O chlamydia infection Anal dysplasia Hypertension H/O: CVA (cerebrovascular accident) HIV (human immunodeficiency virus infection) Surgical History History of testicular surgery Family History Mother Lung cancer Father Prostate cancer Social History Alcohol intake: current Alcohol intake frequency: holidays/special occasions only Patient Tobacco Use Status: Never used Tobacco Review of Systems Const All systems reviewed & are unremarkable except as noted in HPI and below Physical Exam Vital Signs: Last Vital Signs Pulse 70 07/02/24 14:24 BP 121/79 07/02/24 14:24 Pulse Ox 94 07/02/24 14:24 Oxygen Delivery Method Room Air 07/02/24 14:24 BMI result Body Mass Index 24.8 Const General: cooperative Orientation/consciousness: patient oriented x3 HEENT Head: Yes normal to inspection Mouth: Normal oral and palatal mucosa present Eyes General: appearance normal, both eyes and all related structures Pupils: Equal, round and reactive pupils present Resp Effort & Inspection: normal respiratory effort Cardio Rate: regular rate Rhythm: regular rhythm GI Palpation (GI): Soft to palpation and nontender General: Yes no CVA tenderness Back/Spine/Pelvis Back: no CVA tenderness Skin General skin exam: no rashes or lesions noted Neuro General: patient oriented x3 Cranial nerves: Yes CN's II-XII intact bilaterally and Yes Equal, round and reactive pupils present Extrem General: Yes normal to inspection Psych Appearance: grossly normal Assessment & Plan Assessment & Plan (1) HIV (human immunodeficiency virus infection): Comment: He is doing well and has no complaints CD4 count and viral load are appropriate Code(s): B20 - Human immunodeficiency virus [HIV] disease Category: Medical Plan: Continue Juluca (6 months orders placed and labs in six months) Check urinalysis PSA and consider testosterone. colonoscopy next visit anal Pap. 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 Category: Medical Plan: na (4) Hypertension: Code(s): I10 - Essential (primary) hypertension Category: Medical Plan: na Orders: Orders Lymphocyte Subset Panel 3 6 Months B20 - Human immunodeficiency virus [HIV] disease HIV-1 RNA QN PCR Expanded 6 Months B20 - Human immunodeficiency virus [HIV] disease Medications: Refilled dolutegravir-rilpivirine 50-25 mg (Juluca) must administer with a meal/food 1 tab PO DAILY 90 tabs 1RF 90 days Coding Level of Care Code Est Pt Level 4 (18326) Diagnoses HIV (human immunodeficiency virus infection) B20 Osteoporosis M81.0 Anal dysplasia K62.82 Hypertension I10
--- OUTSIDE RECORDS SUMMARY | 2024-07-02 15:16 | XMS_ITS | Clinical Summary ---
Author Organization [facility] Address [address] [place] [address] Care Team Providers Care Brush Maker Machine Name Role Phone Unavailable Primary Care Provider [...]
== END 2024-07-02 14:40 | disposition home or self-care (01) ==
PROVIDERS: PCP Physician Assistant Medical; Visit Provider Internal Medicine
DX: B20 Human immunodeficiency virus [HIV] disease (principal); M81.0 Age-related osteoporosis without current pathological fracture; K62.82 Dysplasia of anus; I10 Essential (primary) hypertension
CPT/HCPCS: 99214

== ENCOUNTER → 2024-07-02 14:06 | Outpatient (BNVA) | payer OTHER, SELFPAY | PROVIDERS: PCP Physician Assistant Medical; Visit Provider Internal Medicine | DX: B20 Human immunodeficiency virus [HIV] disease (principal); M81.0 Age-related osteoporosis without current pathological fracture; I10 Essential (primary) hypertension; K62.82 Dysplasia of anus | CPT/HCPCS: 99212 ==

== ENCOUNTER 2024-10-23 06:47 | Day surgery (SDC) | payer OTHER, SELFPAY ==
--- OUTSIDE RECORDS SUMMARY | 2024-09-28 07:59 | XMS_ITS | Encounter Summary ---
Author Name [facility] [place] [facility] [place] Address [address] [place] [address] Care Team Providers Care Home Energy Auditor Name Role Phone MICHA WRIGHT Primary Care Provider Unavailabl e MENDEZ BADILLO Primary Care Provider Unavail able MACIE NARANJO Primary Care Provider Unavailabl e ABRAHAM, KELLY Unavailable Unavailable JESSIE, CHARIYT Unavailable Unavaila avtar MERRITT, MENDEZ Unavailable Unavailable JENNIFER CALDERÓN Unavailable Unavailable JAI, VENANCIO Unavailable Unavailable Selected Encounter This section includes the information on record at [place] for the Encounter. Date/Time Encounter Type Encounter Description Reason Provider Source May 28, 2024 10:30 AM OFFICE O/P EST MOD 30 MIN PRIMARY CARE/MEDICINE ICD-10-CM I10 Essential (primary) hypertension MICHA WRIGHT Evin Encounter Template Text not used by [place] Assessments - Encounter Diagnoses This section includes the primary and secondary diagnoses documented for the Encounter. Date/Time Primary/Secondary Diagnosis Diagnosis Name Provider Source May 28, 2024 11:15 AM PRIMARY Essential (primary) hypertension MICHA WRIGHT May 28, 2024 11:15 AM SECONDARY Chronic kidney disease, stage 3 unspecified MICHA WRIGHT May 28, 2024 11:15 AM SECONDARY Encounter for immunization TANYA VILLAFANA [place] May 28, 2024 11:15 AM SECONDARY Functional dyspepsia MICHA WRIGHT [place] Plan of Treatment: Future Appointments (+ 6 months) and Future Tests (+/- 45 days) The Plan of Treatment section includes future care activities for the patient from all [place] [facility] This section includes future appointments and future orders which are active, pending or scheduled. Future Appointments This section includes appointments that were scheduled to occur 6 months from the date of the Encounter, up to a maximum of 20 appointments. The data comes from all [facility] facilities. Appointment Date/Time Appointment Type Appointme nt Facility Name Jun 13, 2024 11:00 [facility] Jun [facility], [facility]24 09:30 AM [facility] Jul 02, 2024 02:00 PM AM[facility]INE [facility] Jul 09, 2024 10:45 AM AM[facility]ORY - MED[facility]INE [facility] Aug 06, 2024 09:30 AM AMBULATORY - RE[facility] Nov 19, 2024 10:30 AM AM[facility]ULATORY - MEDICINE [facility] Active, Pending, and Scheduled Orders This section includes a listing of several types of active, pending, and scheduled orders, including clinic medications orders, diagnostic test orders, procedure orders and consult orders; where the start date of the order is 45 days before the date of the Encounter or 45 days after the date of theEncounter. The data comes from all [facility]. Test Date/Time Test Type Test Details Facility Name Apr 24, 2024 10:33 AM Consult Order [facility]ITY [facility]-GI GENERAL [facility] Jun 08, 2024 02:30 PM Consult Order COMMUNITY CARE-INFECTIOUS DISEASE [facility] Lab Results: +/- 30 days of the encounter This section includes the Chemistry and Hematology Lab Results on record with [place] for the patient. Radiology Reports and Pathology Reports are provided separately, in subsequent sections. Lab Results This section contains the Chemistry/Hematology Results that were resulted 30 days before or 30 daysafter the date of the Encounter. Date/Time Source Result Type Result - Unit Interpretation Reference Range Specimen Type Comment May 25, 2024 11:45 AM [place] FERRITIN SERUM Specimen Type: SERUM No comment entered. Ordering Provider: MICHA WRIGHT Report Released Date/Time: Nov 01, 2023 02:33 PM Reporting Lab: [address] [address] [facility]forming [facility]: [facility] [address] [address] FERRITIN 100 ng/mL 20-300 May 25, 2024 11:45 AM [place] RETICULOCYTES BLOOD Specimen Type: BLOOD No comment entered. Ordering Provider: MICHA WRIGHT Report Released Date/Time: Nov 01, 2023 02:33 PM Reporting [facility]: [facility] [address] [address] Performing Lab: [address] [address] RETIC % 2.2 H 0.6-2.0 RETIC, ABS 93.4 10*3/uL H 30.0-90.0 RET-HE 32.5 pg 27.9-42.0 May 25, 2024 11:45 AM [place] BASIC METABOLIC PANEL (fasting) SERUM Specimen Type: SERUM No comment entered. Ordering Provider: MICHA WRIGHT Report Released Date/Time: Nov 01, 2023 02:33 PM Reporting Lab: [address] [address] Performing Lab: [address] [address] UREA NITROGEN 13 mg/dL 7-25 GLUCOSE 93 mg/dL 65-100 SODIUM 138 mmol/L 135-145 POTASSIUM 4.4 mmol/L 3.5-5.0 CHLORIDE 102 mmol/L 100-110 CO2 27 meq/L 20-30 CREATININE, Serum 1.45 mg/dL H 0.50-1.40 eGFR(CKD-EPI 2020) 54 mL/min L >60 May 25, 2024 11:45 AM [place] LIPID PANEL FASTING SERUM Specimen Ty pe: SERUM No comment entered. Ordering Provider: MICHA WRIGHT Report Released Date/Time: Nov 01, 2023 02:33 PM Reporting Lab: [address] [address] Performing Lab: [address] [address] CHOLESTEROL 176 mg/dL TRIGLYCERIDE 59 mg/dL 0-150 LDL calculated 107 mg/dL 0-129 CHOL/HDL 3.1 HDL CHOLESTEROL 57 mg/dL 40-60 May 25, 2024 11:45 AM [place] LIVER FUNCTION SERUM Specimen Type: SERUM No comment entered. Ordering Provider: MICHA WRIGHT Report Released Date/Time: Nov 01, 2023 02:33 PM Reporting Lab: [facility] [address] [address] Performing Lab: [facility] [address] [address] PROTEIN,TOTAL 6.7 g/dL 6.0-8.3 ALBUMIN 3.9 g/dL 3.5-5.0 ALKALINE PHOSPHATASE 82 U/L 40-150 AST 27 U/L 5-34 ALT 22 U/L BILIRUBIN, TOTAL 0.9 mg/dL 0.2-1.2 May 25, 2024 11:45 AM [place] HEMOGLOBIN A1C PANEL BLOOD Specimen T ype: [...] Nov 01, 2023 02:33 PM Reporting Lab: [facility] [address] [address] Performing Lab: [facility] [address] [address] HEMOGLOBIN A1C 4.0 4.0-5.6 May 25, 2024 11:45 AM [place] TSH SERUM Sp ecimen Type: SERUM No comment entered. Ordering Provider: MICHA WRIGHT Report Released Date/Time: Nov 01, 2023 02:33 PM Reporting Lab: [facility] [address] [address] Performing Lab: [facility] [address] [address] TSH 1.16 u[IU]/mL 0.35-5.00 May 25, 2024 11:45 AM [place] CBC AND DIFF (AUTO) BLOOD Specimen Ty pe: BLOOD No comment entered. Ordering Provider: MICHA WRIGHT Report Released Date/Time: Nov 01, 2023 02:33 PM Reporting Lab: [facility] [address] [address] [facility] [address] Performing Lab: [address] [address] WBC 3.82 10*3/uL L 4.50-11.00 RBC 4.17 [...] 0.0 0.0-0.0 NRBC, ABS 0.00 10*3/uL 0.00-0.00 May 25, 2024 11:45 AM [place] VITAMIN D (25-OH) SERUM Specimen Type: SERUM No comment entered. Ordering Provider: MICHA WRIGHT Report Released Date/Time: Nov 01, 2023 02:33 PM Reporting Lab: [address] [address] Performing Lab: [address] [address] VITAMIN D (25-OH) 32 ng/mL 20-50 May 25, 2024 11:45 AM [place] CALCIUM SERUM Sp ecimen Type: SERUM No comment entered. Ordering Provider: MICHA WRIGHT Report Released Date/Time: Nov 01, 2023 02:33 PM Reporting Lab: [address] [address] Performing Lab: [address] [address] CALCIUM 9.9 mg/dL 8.5-10.2 May 25, 2024 11:45 AM [place] URIC ACID SERUM Sp ecimen Type: SERUM No comment entered. Ordering Provider: MICHA WRIGHT Report Released Date/Time: Nov 01, 2023 02:33 PM Reporting Lab: [address] [address] Performing Lab: [address] [address] URIC ACID 7.0 mg/dL 3.5-7.2 May 25, 2024 11:45 AM [place] PSA SERUM Sp ecimen Type: SERUM No comment entered. Ordering Provider: MICHA WRIGHT Report Released Date/Time: Nov 01, 2023 02:33 PM Reporting Lab: [address] [address] Performing Lab: [address] [address] PSA 0.71 ng/mL 0.00-4.00 Immunizations: All administered on the encounter date This section contains immunizations associated to the Encounter. Immunization Series Date Issued Administered By Site Reaction Lot Number CVX Code Drug Plumbing Contractor Comment(s) Source PNEUMOCOCCAL POLYSACCHARID E PPV23 May 28, 2024 MELVA VILLAFANA LEFT DELTO ID [id number] [employer] ADMINISTERE D AT [facility] IELD Social History: Smoking Status (Most current) and Tobacco Use (All prior to encounter date) This section includes the most current, and the historical, smoking and tobacco- related health factors from the [place] facility where the Encounter took place. Current Smoking Status This section includes the most current smoking, or tobacco-related health factor, from the [place] facility where the Encounter took place. Date/Time Current Smoking Status Comment Jenny ity May 28, 2024 10:30 AM [place]-TOBACCO NEVER USED CIGARETTES [place] Tobacco Use History This section includes a history of the smoking, or tobacco-related health factors, that were collected on or before the date of the Encounter. The data comes from the [place] facility where the Encounter took place. Date/Time Smoking Status/Tobacco Use Comment F acility May 28, 2024 10:30 AM [place]-TOBAC[place] NEVER USED OTHER TYPE [place] Advance Directives: All historical and current Section Date Range: From patient's date of to the date document was created. This section includes ALL of a patient's completed or amended [place] Advance and Rescinded Directives. The entries below indicate that a directive exists for the patient, but an actual copy is not included with this document. The data comes from all [place] facilities. Date Advance Directives Provider Source Jan 05, 2022 ADVANCE DIRECTIVE MELISSA CLINE [facility] Feb 21, 2018 ADVANCE DIRECTIVE MINESH [facility]ERT [facility] Encounter Notes: All associated encounter notes This section contains the clinical notes associated to the Encounter. Date/Time Encounter Note(s) Provider Source May 28, 2024 10:50 AM PREVENTIVE MEDICIN E NURSING NOTE: LOCAL TITLE: CLINICAL REMINDERS/NURSING STANDARD TITLE: PREVENTIVE MEDICINE NURSING NOTE DATE OF NOTE: MAY 28, 2024@10:50 ENTRY DATE: MAY 28, 2024@10:50:06 AUTHOR: RASHMI VILLAFANA EXP COSIGNER: URGENCY: STATUS: COMPLETED Advance Directive Screen MH AD: Patient has an Advance Directive on file at this [facility]. No updates are needed at this time. The patient received education about Advance Directives and written notification of his/her rights. Hepatitis B Serology/Immunization: The patient declines to have HBV serology done. Reason: 'Not today Pneumococcal PPSV23 (Pneumovax): Administered: PNEUMOCOCCAL POLYSACCHARIDE PPV23 Date Administered: May 28, 2024 10:30 Plumbing Contractor: [employer] Lot: [id number] Exp Date: Apr 08, 2025 [facility]: [id number] Admin Route/Site: INTRAMUSCULAR/LEFT DELTOID Dosage: 0.5mL Vaccine Information Statement(s): PPSV23 VIS Mar 21, 2019 ([place]USTRI[place]) Order By: Policy Administered By: Rashmi Villafana Vaccine Information Sheet (VIS) was given to [...] Immunization: Respiratory Syncytial Virus (RSV) Vaccine: Refused GlaxLiveMinutesithKline (RSV vaccine, adjuvanted, Arexvy). Immunization: RSV, RECOMBINANT, [...] A serology done. Reason: /juan carlos/ RASHMI VILLAFANA LPN LICENSED PRACTICAL NURSE Signed: 05/28/2024 10:54 RASHMI VILLAFANA [place] May 28, 2024 10:46 AM PHYSICIAN BERRY Haddad NOTE: LOCAL TITLE: [place] NOTE STANDARD TITLE: PHYSICIAN ALTERATION MANAGER NOTE DATE OF NOTE: MAY 28, 2024@10:46 ENTRY DATE: MAY 28, 2024@10:46:28 AUTHOR: MICHA WRIGHT EXP COSIGNER: URGENCY: STATUS: COMPLETED S - routine [...] JUN 16 3) C/V Stable - never [place] 4) h/o TIA 2016; None Since No [...] of active outpatient prescriptions dispensed from this [place] (local) and dispensed from another [place] or [facility] facility (remote) as well as inpatient orders [...] types of tobacco. Suicide Screen: C-SSRS Screening [place]-Suicide Severity Rating Scale (C-SSRS Screener) 1. Over [...] down, depressed, or hopeless Not at all /juan carlos/ MICHA WRIGHT PA-C STAFF PHYSICIAN ALTERATION MANAGER Signed: 05/28/2024 11:15 MICHA WRIGHT
--- OUTSIDE RECORDS SUMMARY | 2024-09-28 08:00 | XMS_ITS | Continuity of Care Document ---
Author Name [facility] Organization [facility] Care Team Providers Care Subcontract Manager Name Role Phone [facility] Unavailable Unavailable Problems Combined list of problems from Department of Defense and Veterans Affairs facilities. It does not include entries that were removed or entered in error. Problem Status Onset Date Problem Type Date of Resolution Comments Source Human Immunodeficiency Virus (HIV) Disease Active 12/22/19 07 Condition Jan 08, 2011 Entered By: HERMANN MONTGOMERY [facility] Acute Kidney Failure, unspecified (ICD-9-CM 584.9) Active Condition [facility] Adjustment Disorder with Anxiety (ICD-9-CM 309.24) Active Condition [facility] Aneurysm of aortic root Active Condition [facility] Anxiety (SCT 48977018) Active Condition [facility] Asymptomatic human immunodeficiency virus infection Active Condition [facility] Carcinoma in situ of anus Active Condition [facility] Chronic Kidney Disease Stage 3 (SCT 696152662) Active Condition Nov 01, 2023 Entered By: MICHA WRIGHT Comment: EGFR 51 in NOVEMBER 13; was 56 in MAY 13 [facility] CVA - Cerebrovascular accident Active Condition [facility] CVD - Cerebrovascular Disease (SCT 72427813) Active Condition [facility] Dysplasia of anus Active Condition Au 2021 Entered By: DAR KUMAR Comment: see note dated 01/05/2022 [facility] H/O: Stroke (SCT 203895979) Active Condition Jan 08, 2022 Entered By: DAR KUMAR Comment: 2017 see note dated 01/05/2022 [facility] HIV positive Active Condition [facility] HIV positive Active Condition Apr 25, 2024 Entered By: MICHA WRIGHT Comment: Gets Meds from Infect Disease Outside [facility] HIV positive (SNOMED CT 936368898) Active Condition [facility] HTN - Hypertension (SCT 75174538) Active Condition [facility] HTN-Hypertension (SCT 18971741) Active Condition [facility] Human papilloma virus infection Active Condition [facility] Hyperlipidemia Active Condition [facility] Hyperlipidemia (SCT 37935820) Active Condition [facility] Hyperlipidemia (SNOMED CT 79963041) Active Condition [facility] Hyperopia Active Condition [facility] HYPEROPIA Active Condition [facility] Hypertension Active Condition [facility] Hypertension Active Condition [facility] Impotence of organic origin Active Condition [facility] Indigestion Active Condition Apr 25, 2024 Entered By: MICHA WRIGHT Comment: H pylori POSITIVE MAY 15; Start Eradication Tx MAY 15De2023 Entered By: MICHA WRIGHT Comment: TTG IgA For Celiac Sprue: NegJan 2024 Entered By: MICHA WRIGHT Comment: EGD and Screen Colonoscopy pending as of MAY 15 [facility] LATTICE Active Condition [facility] Osteoporosis Active Condition [facility] Osteoporosis (SCT 31205252) Active Condition Apr 24, 2024 Entered By: MICHA WRIGHT Comment: Osteoporosis Deemed a Side-Effect of an HIV Med [facility] Other anxiety states (ICD-9-CM 300.09) Active Condition [facility] Pain of right shoulder joint Active Condition Nov 01, 2023 Entered By: MICHA WRIGHT Comment: MRI, R Shldr [facility] AUG 13: Partial Tear Biceps Tendon;Nov 01, 2023 Entered By: MICHA WRIGHT Comment: Saw Ortho 2023; Not Deemed Surg Case; Just Do PT;Nov 01, 2023 Entered By: MICHA WRIGHT Comment: f/u w/ Ortho as Directed in 2023 [facility] Polyp of colon Active Condition [facility] Presbyopia Active Condition [facility] Regular Astigmatism Active Condition [facility] Screening for malignant neoplasm of colon done Active Condition Apr 24, 2024 Entered By: MICHA WRIGHT Comment: Last Colonoscopy approx 2019; Hx Benign Polyposis; FH: +CRCDec 2023 Entered By: MICHA WRIGHT Comment: Request Surveil Colonoscopy ( 5-yr intevals ) and Diagnost EGD at Same TimeDec 2023 Entered By: MICHA WRIGHT Comment: To Assess for LES Sphincter Motility Dysfunct [facility] Diagnosis: ICD-10-CM M25.512 Pain in left shoulder Active Diagnosis [facility] Diagnosis: ICD-10-CM I10 Essential (primary) hypertension Active Diagnosis [facility] Diagnosis: ICD-10-CM Z13.6 Encounter for screening for cardiovascular disorders Active Diagnosis [facility] Diagnosis: ICD-10-CM R00.2 Palpitations Active Diagnosis [facility] Diagnosis: ICD-10-CM K30 Functional dyspepsia Active Diagnosis [facility] Diagnosis: ICD-10-CM N18.30 Chronic kidney disease, stage 3 unspecified Active Diagnosis [facility] Diagnosis: ICD-10-CM S46.291S Inj musc/fasc/tend prt biceps, right arm, sequela Active Diagnosis [facility] Diagnosis: ICD-10-CM M25.511 Pain in right shoulder Active Diagnosis [facility] Medications Combined list of outpatient medications from Department of Defense and Veterans Affairs facilities.Medications provided include 1) outpatient medications from the last 15 months, and 2) patient-reported medications. Medication Details Route Status Patient Instructions Prescription Expires Prescription Number Last Dispense Date Ordering Provider Order Date Order Qty Source ALENDRONATE 70MG TAB TAKE ONE TABLET BY MOUTH ONCE A WEEK FOR DECREASE D BONE MASS (TAKE WITH A FULL GLASS OF WATER; REMAIN UPRIGHT FOR 30 MINUTES; NO FOOD OR DRINK FOR 30 MINUTES) ORAL ACTIVE 04/25/2025 [id number] 5 KYLIE WRIGHT 2024 12 [facility] ALENDRONATE 70MG TAB TAKE ONE TABLET BY MOUTH ONCE A WEEK FOR DECREASE D BONE MASS (TAKE WITH A FULL GLASS OF WATER; REMAIN UPRIGHT FOR 30 MINUTES; NO FOOD OR DRINK FOR 30 MINUTES) ORAL DISCONT INUED 06/01/2024 [id number] JOHN KUMAR 2023 12 [facility] ASPIRIN 81MG TAB,CHEWABL E CHEW ONE TABLET BY MOUTH ONCE DAILY ORAL ACTIVE HIREN SMITH 2010 [facility] ATORVASTATI N CA 80MG TAB TAKE ONE TABLET BY MOUTH ONCE DAILY FOR CHOLESTE ROL ORAL SUSPEND ED 04/25/2025 [id number] 5 KYLIE WRIGHT 2023 90 [facility] ATORVASTATI N CA 80MG TAB TAKE ONE TABLET BY MOUTH ONCE DAILY FOR CHOLESTE ROL ORAL DISCONT INUED 06/01/2024 [id number] JOHN KUMAR 2023 90 [facility] BISMUTH SUBSALICYLA TE 262MG TAB,CHEW CHEW TWO TABLETS BY MOUTH FOUR TIMES A DAY H PYLORI ORAL ACTIVE 04/26/2025 [id number] 4 KYLIE WRIGHT 2023 112 [facility] CALCIUM 500MG/VITAM IN D 200UNT TAB TAKE 1 TABLET BY MOUTH ONCE DAILY FOR CALCIUM SUPPLEME NT ORAL ACTIVE 03/09/2025 [id number] 5 KYLIE WRIGHT 2023 60 [facility] CHOLECALCIF DIMITRIOS 50MCG (2,000UNIT) TAB TAKE ONE TABLET BY MOUTH ONCE DAILY FOR VITAMIN SUPPLEME NTATION ORAL ACTIVE 04/25/2025 [id number] 5 KYLIE WRIGHT 2023 100 [facility] CHOLECALCIF DIMITRIOS 50MCG (2,000UNIT) TAB TAKE ONE TABLET BY MOUTH ONCE DAILY FOR VITAMIN SUPPLEME NTATION ORAL DISCONT INUED 06/01/2024 [id number] 4 JOHN KUMAR 2023 100 [facility] CYANOCOBALA MIN 1000MCG TAB TAKE ONE TABLET BY MOUTH ONCE DAILY FOR VITAMIN SUPPLEME NTATION ORAL ACTIVE 04/25/2025 [id number] 5 KYLIE WRIGHT 2023 90 [facility] CYANOCOBALA MIN 1000MCG TAB TAKE ONE TABLET BY MOUTH ONCE DAILY FOR VITAMIN SUPPLEME NTATION ORAL DISCONT INUED 06/01/2024 [id number] 4 JOHN KUMAR 2023 90 [facility] DOLUTEGRAVI R 50MG/RILPIV IRINE 25MG TAB TAKE 1 TABLET BY MOUTH ONCE DAILY WITH A MEAL ORAL ACTIVE 07/03/2025 [id number] 5 Veronica EASTMAN MD 2024 90 ID CNTL [facility] DOLUTEGRAVI R 50MG/RILPIV IRINE 25MG TAB TAKE 1 TABLET BY MOUTH ONCE DAILY WITH A MEAL ORAL DISCONT INUED 01/09/2025 [id number] 5 Veronica EASTMAN MD 2023 90 [facility] DOLUTEGRAVI R 50MG/RILPIV IRINE 25MG TAB TAKE 1 TABLET BY MOUTH ONCE DAILY WITH A MEAL ORAL DISCONT INUED 07/08/2024 [id number] 4 Veronica EASTMAN MD 2023 90 [facility] HYDROCHLORO THIAZIDE 25MG TAB TAKE ONE-HALF TABLET BY MOUTH ONCE DAILY TO PREVENT FLUID/CO NTROL BLOOD PRESSURE ORAL ACTIVE 07/05/2025 [id number] 5 KYLIE WRIGHT 2024 45 [place] HYDROCHLORO THIAZIDE 25MG TAB TAKE ONE-HALF TABLET BY MOUTH ONCE DAILY TO PREVENT FLUID/CO NTROL BLOOD PRESSURE ORAL DISCONT INUED 06/01/2024 [id number] 4 JOHN KUMAR 2023 45 [place] HYDROXYZINE PAMOATE 25MG CAP TAKE ONE CAPSULE BY MOUTH THREE TIMES A DAY FOR HIVES ORAL 09/02/2024 [id number] KYLIE WRIGHT 2023 30 [place] METOPROLOL SUCCINATE 25MG TAB,SA TAKE ONE TABLET BY MOUTH ONCE DAILY FOR BLOOD PRESSURE /HEART ORAL ACTIVE 07/05/2025 [id number] 5 KYLIE WRIGHT 2024 90 [place] METOPROLOL SUCCINATE 25MG TAB,SA TAKE ONE TABLET BY MOUTH ONCE DAILY FOR BLOOD PRESSURE /HEART ORAL DISCONT INUED 06/01/2024 [id number] 4 JOHN KUMAR 2023 90 [place] METRONIDAZO LE 500MG TAB TAKE ONE TABLET BY MOUTH THREE TIMES A DAY FOR INFECTIO N ORAL 05/25/2024 [id number] KYLIE WRIGHT 2023 42 [place] MULTIVITAMI NS CAP/TAB TAKE ONE TABLET BY MOUTH ONCE DAILY ORAL ACTIVE HIREN SMITH 2010 [facility] MULTIVITAMI NS/MINERALS TAB,CHEWABL E CHEW ONE TABLET BY MOUTH EVERY DAY ORAL ACTIVE DERRICK SCHAEFFER V 2014 [facility] OMEPRAZOLE 20MG CAP,EC TAKE TWO CAPSULES BY MOUTH TWICE DAILY H PYLORI ORAL ACTIVE 04/26/2025 [id number] KYLIE WRIGHT BRENNA 2023 56 [facility] TETRACYCLIN E HCL 500MG CAP TAKE ONE CAPSULE BY MOUTH FOUR TIMES A DAY FOR INFECTIO N ORAL 05/25/2024 [id number] 4 KYLIE WRIGHT BRENNA 2023 56 [facility] Allergies, Adverse Reactions, Alerts Combined list of allergies from Department of Defense and Veterans Affairs facilities. It does not include entries that were removed or entered in error. Substance Category Reaction Severity Reaction type Status Date Reported Comments Source LISINOPRIL Propensity to adverse reactions to drug (finding) Urticaria active 4 ID [facility] Immunizations Combined list of available immunizations from the Department of Defense and Veterans Affairs facilities. Immunization Series Date Given Administered By Site Reaction Lot Number CVX Code Drug Fire Patroller Status Comments Source PNEUMOCOCCAL POLYSACCHARID E PPV23 2024 MELVA VILLAFANA LEFT DELTO ID [id number] 33 complet ed [facility] INFLUENZA, SPLIT VIRUS, TRIVALENT, PF 2023 MELVA VILLAFANA LEFT DELTO ID [id number] 140 complet ed [facility] COVID-19 (MODERNA), MRNA, LNP-S, BIVALENT BOOSTER, PF, 50 MCG/0.5 ML OR 25MCG/0.25 ML DOSE 1 2022 [place] BELLO LEFT DELTO ID [id number] 229 complet ed [facility] MENINGOCOCCAL MCV4O 2021 136 complet ed HISTORICA L INFORMATI ON - FROM OTHER REGISTRY, [facility] [place] [facility] INFLUENZA VACCINE, QUADRIVALENT, ADJUVANTED 2021 205 complet ed [facility] COVID-19 (MODERNA), MRNA, LNP-S, PF, 100 MCG/0.5ML DOSE OR 50 MCG/0.25ML DOSE 3 2021 207 complet ed MOD; [id number]; 2 NIURKA JEFF ON [facility] COVID-19 (MODERNA), MRNA, LNP-S, PF, 100 MCG/0.5ML DOSE OR 50 MCG/0.25ML DOSE 3 2020 207 complet ed [facility] [facility] COVID-19 (MODERNA), MRNA, LNP-S, PF, 100 MCG/0.5ML DOSE OR 50 MCG/0.25ML DOSE 2 2020 207 complet ed [facility] [place] [facility] COVID-19 (MODERNA), MRNA, LNP-S, PF, 100 MCG/0.5ML DOSE OR 50 MCG/0.25ML DOSE 1 2020 207 complet ed [facility] MENINGOCOCCAL MCV4O 2019 136 complet ed Left upper arm NIURKA JEFF ON [facility] INFLUENZA, INJECTABLE, QUADRIVALENT, PRESERVATIVE FREE 2019 150 complet ed NIURKA JEFF ON [facility] MENINGOCOCCAL MCV4O 2019 136 complet ed Left upper arm NIURKA JEFF ON [facility] INFLUENZA, INJECTABLE, QUADRIVALENT, PRESERVATIVE FREE 2018 150 complet ed Right Deltoid NIURKA JEFF ON [facility] FLU,3 YRS (HISTORICAL) 2017 88 complet ed [facility] INFLUENZA, SEASONAL, INJECTABLE, PRESERVATIVE FREE 2017 140 complet ed [facility] INFLUENZA, INJECTABLE, QUADRIVALENT, PRESERVATIVE FREE 2017 150 complet ed [facility] ACTIVE DIRECTO [facility] SYSTEM PNEUMOCOCCAL POLYSACCHARID E PPV23 2017 33 complet ed [facility] ZOSTER RECOMBINANT 2 2017 187 complet ed [facility] INFLUENZA, SEASONAL, INJECTABLE 2017 141 complet ed Site: Left Deltoid [facility] ZOSTER RECOMBINANT 1 2017 187 complet ed [facility] FLU,3 YRS (HISTORICAL) 2016 88 complet ed [facility] INFLUENZA, SEASONAL, INJECTABLE, PRESERVATIVE FREE 2016 140 complet ed [facility] FLU,3 YRS (HISTORICAL) 2016 88 complet ed [facility] INFLUENZA, SEASONAL, INJECTABLE, PRESERVATIVE FREE 2016 140 complet ed [facility] DTAP, UNSPECIFIED FORMULATION 2015 107 complet ed [facility] TD (ADULT) 2015 138 complet ed taken from V NIURKA JEFF ON [facility] TD(ADULT) UNSPECIFIED FORMULATION 2015 139 complet ed [facility] TDAP 2015 115 complet ed HISTORICA L INFORMATI ON - FROM OTHER REGISTRY, [facility] INFLUENZA, SEASONAL, INJECTABLE, PRESERVATIVE FREE 2014 140 complet ed [facility] INFLUENZA, UNSPECIFIED FORMULATION 2013 88 complet ed [facility] PNEUMOCOCCAL CONJUGATE PCV 13 2013 133 complet ed [facility] INFLUENZA, UNSPECIFIED FORMULATION 2012 88 complet ed [facility] TETANUS DIPHTHERIA AND PERTUSSIS (HISTORICAL) 2012 107 complet ed [facility] TDAP 2012 115 complet ed [facility] FLU,3 YRS (HISTORICAL) 2011 88 complet ed [facility] FLU,3 YRS (HISTORICAL) 2011 88 complet ed [facility] HEP A, UNSPECIFIED FORMULATION 2010 85 complet ed HISTORICA L INFORMATI ON - FROM OTHER REGISTRY, [facility] FLU,3 YRS (HISTORICAL) 2010 88 complet ed [facility] INFLUENZA, UNSPECIFIED FORMULATION 2009 88 complet ed [facility] TD(ADULT) UNSPECIFIED FORMULATION 2007 139 complet ed [facility] Results Combined list of recent chemistry, hematology and other laboratory results from Department of Defense and Veterans Affairs, ranging from 15 months to all on record, depending upon the facility. Order Name Results Value Reference Range Date Interpretation Specimen Comments Source VITAMIN D (25-OH) 25-HYDROXYV ITAMIN D3 [MASS/VOLUM E] IN SERUM OR PLASMA 32 ng/mL 20 - 50 05/25 Specimen Type: SERUM No comment entered. Ordering Provider: MICHA WRIGHT Report Released Date/Time: Nov 01, 2023 02:33 PM Reporting Lab: [facility] [email or web address] [address] Performing Lab: [facility] [address] [address] [place] URIC ACID URATE [MASS/VOLUM E] IN SERUM OR PLASMA 7.0 mg/dL 3.5 - 7.2 05/25 Specimen Type: SERUM No comment entered. Ordering Provider: MICHA WRIGHT Report Released Date/Time: Nov 01, 2023 02:33 PM Reporting Lab: [facility] [address] [address] Performing Lab: [facility] [address] [address] [place] CALCIUM CALCIUM [MASS/VOLUM E] IN SERUM OR PLASMA 9.9 mg/dL 8.5 - 10.2 05/25 Specimen Type: SERUM No comment entered. Ordering Provider: MICHA WRIGHT Report Released Date/Time: Nov 01, 2023 02:33 PM Reporting Lab: [facility] [address] [address] Performing Lab: [facility] [address] [address] [place] PSA PROSTATE SPECIFIC AG [MASS/VOLUM E] IN SERUM OR PLASMA 0.71 ng/mL 0.00 - 4.00 05/25 Specimen Type: SERUM No comment entered. Ordering Provider: MICHA WRIGTH Report Released Date/Time: Nov 01, 2023 02:33 PM Reporting Lab: [facility] [address] [address] Performing Lab: [facility] [address] [place] FERRITIN FERRITIN [MASS/VOLUM E] IN SERUM OR PLASMA 100 ng/mL 20 - 300 05/25 Specimen Type: SERUM No comment entered. Ordering Provider: MICHA WRIGHT Report Released Date/Time: Nov 01, 2023 02:33 PM Reporting Lab: [facility] [address] [address] Performing Lab: [address] [address] [place] RETICULOC YTES RETICULOCYT ES [#/VOLUME] IN BLOOD 2.2 0.6 - 2.0 05/25 H Specimen Type: BLOOD No comment entered. Ordering Provider: MICHA WRIGHT Report Released Date/Time: Nov 01, 2023 02:33 PM Reporting Lab: [address] [address] Performing Lab: [address] [address] [place] RETICULOC YTES RETICULOCYT ES/100 ERYTHROCYTE S IN BLOOD BY AUTOMATED COUNT 93.4 10*3/u L 30.0 - 90.0 05/25 H Specimen Type: BLOOD No comment entered. Ordering Provider: MICHA WRIGHT Report Released Date/Time: Nov 01, 2023 02:33 PM Reporting Lab: [address] [address] Performing Lab: [address] [address] [place] RETICULOC YTES HEMOGLOBIN [ENTITIC MASS] IN RETICULOCYT ES BY AUTOMATED COUNT 32.5 pg 27.9 - 42.0 05/25 Specimen Type: BLOOD No comment entered. Ordering Provider: MICHA WRIGHT Report Released Date/Time: Nov 01, 2023 02:33 PM Reporting Lab: [address] [address] Performing Lab: [address] [address] [place] LIPID PANEL FASTING CHOLESTEROL [MASS/VOLUM E] IN SERUM OR PLASMA 176 mg/dL 05/25 Specimen Type: SERUM No comment entered. Ordering Provider: MICHA WRIGHT Report Released Date/Time: Nov 01, 2023 02:33 PM Reporting Lab: [address] [address] Performing Lab: [address] [address] [place] LIPID PANEL FASTING TRIGLYCERID E [MASS/VOLUM E] IN SERUM OR PLASMA 59 mg/dL 0 - 150 05/25 Specimen Type: SERUM No comment entered. Ordering Provider: MICHA WRIGHT Report Released Date/Time: Nov 01, 2023 02:33 PM Reporting Lab: [facility] [address] [address] Performing Lab: [facility] [address] [address] [place] LIPID PANEL FASTING CHOLESTEROL IN LDL [MASS/VOLUM E] IN SERUM OR PLASMA BY CALCULATION 107 mg/dL 0 - 129 05/25 Specimen Type: SERUM No comment entered. Ordering Provider: MICHA WRIGHT Report Released Date/Time: Nov 01, 2023 02:33 PM Reporting Lab: [facility] [address] [address] Performing Lab: [address] [address] [place] LIPID PANEL FASTING CHOLESTEROL .TOTAL/CHOL ESTEROL IN HDL [MASS RATIO] IN SERUM OR PLASMA 3.1 05/25 Specimen Type: SERUM No comment entered. Ordering Provider: MICHA WRIGHT Report Released Date/Time: Nov 01, 2023 02:33 PM Reporting Lab: [facility] [address] [address] Performing Lab: [facility]ITAL[facility] [address] [place] LIPID PANEL FASTING CHOLESTEROL IN HDL [MASS/VOLUM E] IN SERUM OR PLASMA 57 mg/dL 40 - 60 05/25 Specimen Type: SERUM No comment entered. Ordering Provider: MICHA WRIGHT Report Released Date/Time: Nov 01, 2023 02:33 PM Reporting Lab: [facility] [address] [address] Performing Lab: [facility] [address] [address] [place] LIVER FUNCTION PROTEIN [MASS/VOLUM E] IN SERUM OR PLASMA 6.7 g/dL 6.0 - 8.3 05/25 Specimen Type: SERUM No comment entered. Ordering Provider: MICHA WRIGHT Report Released Date/Time: Nov 01, 2023 02:33 PM Reporting Lab: [facility] [place] [facility] [address] [address] Performing Lab: [facility] [place] [facility] [address] [address] [place] LIVER FUNCTION ALBUMIN [MASS/VOLUM E] IN SERUM OR PLASMA 3.9 g/dL 3.5 - 5.0 05/25 Specimen Type: SERUM No comment entered. Ordering Provider: MICHA WRIGHT Report Released Date/Time: Nov 01, 2023 02:33 PM Reporting Lab: [facility] [place] [facility] [address] [address] Performing Lab: [facility] [place] [address] [address] [place] LIVER FUNCTION ALKALINE PHOSPHATASE [ENZYMATIC ACTIVITY/VO LUME] IN SERUM OR PLASMA 82 U/L 40 - 150 05/25 Specimen Type: SERUM No comment entered. Ordering Provider: MICHA WIRGHT Report Released Date/Time: Nov 01, 2023 02:33 PM Reporting Lab: [facility] [place] [facility] [address] [address] Performing Lab: [facility] [place] [facility] [address] [address] [place] LIVER FUNCTION ASPARTATE AMINOTRANSF ERASE [ENZYMATIC ACTIVITY/VO LUME] IN SERUM OR PLASMA 27 U/L 5 - 34 05/25 Specimen Type: SERUM No comment entered. Ordering Provider: MICHA WRIGHT Report Released Date/Time: Nov 01, 2023 02:33 PM Reporting Lab: [facility] [place] [facility] [address] [address] Performing Lab: [facility] [place] [place] [address] [address] [place] LIVER FUNCTION ALANINE AMINOTRANSF ERASE [ENZYMATIC ACTIVITY/VO LUME] IN SERUM OR PLASMA 22 U/L 05/25 Specimen Type: SERUM No comment entered. Ordering Provider: MICHA WRIGHT Report Released Date/Time: Nov 01, 2023 02:33 PM Reporting Lab: [facility] [place] [facility] [address] [address] Performing Lab: [facility]USEH[facility] [address] [address] [place] LIVER FUNCTION BILIRUBIN.T OTAL [MASS/VOLUM E] IN SERUM OR PLASMA 0.9 mg/dL 0.2 - 1.2 05/25 Specimen Type: SERUM No comment entered. Ordering Provider: MICHA WRIGHT Report Released Date/Time: Nov 01, 2023 02:33 PM Reporting Lab: [facility] [address] [address] Performing Lab: [facility]ITALRL TRN [facility]ITALUSE[address] [address] [place] BASIC METABOLIC PANEL (fasting) UREA NITROGEN [MASS/VOLUM E] IN SERUM OR PLASMA 13 mg/dL 7 - 25 05/25 Specimen Type: SERUM No comment entered. Ordering Provider: MICHA WRIGHT Report Released Date/Time: Nov 01, 2023 02:33 PM Reporting Lab: [facility] [address] [address] Performing Lab: [facility]ITALRL W[facility]N [address] [address] [place] BASIC METABOLIC PANEL (fasting) GLUCOSE [MASS/VOLUM E] IN SERUM OR PLASMA 93 mg/dL 65 - 100 05/25 Specimen Type: SERUM No comment entered. Ordering Provider: MICHA WRIGHT Report Released Date/Time: Nov 01, 2023 02:33 PM Reporting Lab: [facility] [address] [address] Performing Lab: [facility]ITALUSE[address] [address] [place] BASIC METABOLIC PANEL (fasting) SODIUM [MOLES/VOLU ME] IN SERUM OR PLASMA 138 mmol/L 135 - 145 05/25 Specimen Type: SERUM No comment entered. Ordering Provider: MICHA WRIGHT Report Released Date/Time: Nov 01, 2023 02:33 PM Reporting Lab: [facility] [address] [address] Performing Lab: [facility]PITALRGROVE HILL MEMORIAL HOSPITALTRN [facility] HOSPITALUSETS [facility] [address] [address] [place] BASIC METABOLIC PANEL (fasting) POTASSIUM [MOLES/VOLU ME] IN SERUM OR PLASMA 4.4 mmol/L 3.5 - 5.0 05/25 Specimen Type: SERUM No comment entered. Ordering Provider: MICHA WRIGHT Report Released Date/Time: Nov 01, 2023 02:33 PM Reporting Lab: [facility]TR[facility]USE[facility] [address] [address] Performing Lab: [facility] HOSPITALTRN [facility]OSPITALUSE[address] [address] [place] BASIC METABOLIC PANEL (fasting) CHLORIDE [MOLES/VOLU ME] IN SERUM OR PLASMA 102 mmol/L 100 - 110 05/25 Specimen Type: SERUM No comment entered. Ordering Provider: MICHA WRIGHT Report Released Date/Time: Nov 01, 2023 02:33 PM Reporting Lab: [facility]ITALTRN [facility]ITALUSEH[facility] [address] [address] Performing Lab: [facility]OSPITALTRN [facility]ITALUSE[address] [address] [place] BASIC METABOLIC PANEL (fasting) CARBON DIOXIDE, TOTAL [MOLES/VOLU ME] IN SERUM OR PLASMA 27 meq/L 20 - 30 05/25 Specimen Type: SERUM No comment entered. Ordering Provider: MICHA WRIGHT Report Released Date/Time: Nov 01, 2023 02:33 PM Reporting Lab: [facility]PITALTRN [facility]ITALUSEH[facility] [address] [address] Performing Lab: [facility]OSPITALTRN [facility]OSPITALUSE[address] [address] [place] BASIC METABOLIC PANEL (fasting) CREATININE [MASS/VOLUM E] IN SERUM OR PLASMA 1.45 mg/dL 0.50 - 1.40 05/25 H Specimen Type: SERUM No comment entered. Ordering Provider: MICHA WRIGHT Report Released Date/Time: Nov 01, 2023 02:33 PM Reporting Lab: [facility]ENTERTRN [facility]OSPITALUSE[address] [address] Performing Lab: [facility] [address] [address] [employer] BASIC METABOLIC PANEL (fasting) GLOMERULAR FILTRATION RATE/1.73 SQ M.PREDICTED [VOLUME RATE/AREA] IN SERUM, PLASMA OR BLOOD BY CREATININE- BASED FORMULA (CKD-EPI 2020) 54 mL/min 60 05/25 L Specimen Type: SERUM No comment entered. Ordering Provider: MICHA WRIGHT Report Released Date/Time: Nov 01, 2023 02:33 PM Reporting Lab: [address] [address] Performing Lab: [address] [address] [employer] HEMOGLOBI N A1C PANEL HEMOGLOBIN A1C/HEMOGLO BIN.TOTAL IN BLOOD BY HPLC 4.0 4.0 - 5.6 05/25 Specimen Type: BLOOD Comment: Values obtained from A1C measurement s can vary. For atypical A1C assays, a reported value of 7.0 could actually be between 6.72 and 7.28 if measured by a reference method. A reported value of 9.0 could actually be between 8.73 and 9.27. Ref: http://www. ngsp.org/[place] Pdata.asp Ordering Provider: MICHA WRIGHT Report Released Date/Time: Nov 01, 2023 02:33 PM Reporting Lab: [address] [address] Performing Lab: [address] [address] [employer] Vital Signs Combined list of inpatient and outpatient Vital Signs from Department of Defense and Veterans Affairs, ranging from 12 months to all on record, depending upon the facility. Vital Sign Value Date Comments Source SYSTOLIC BLOOD PRESSURE 134 04/24/2024 10:54:26 [facility] DIASTOLIC BLOOD PRESSURE 92 04/24/2024 10:54:26 [facility] PULSE OXIMETRY 99 04/24/2024 10:54:26 [place] WEIGHT 160 04/24/2024 10:54:26 ORIN DIANA BMI 24 kg/m2 04/24/2024 10:54:26 ORIN [facility] TEMPERATURE 97.8 04/24/2024 10:54:26 EVYI DARRICK PULSE 90 04/24/2024 10:54:26 [place] RESPIRATION 18 04/24/2024 10:54:26 [facility] [place] SYSTOLIC BLOOD PRESSURE 130 11/01/2023 11:28:51 [facility] DIASTOLIC BLOOD PRESSURE 89 11/01/2023 11:28:51 [facility] PULSE OXIMETRY 95 11/01/2023 11:28:51 [place] WEIGHT 154 11/01/2023 11:28:51 [place] BMI 23 kg/m2 11/01/2023 11:28:51 EVYIN GFDIANA PULSE 59 11/01/2023 11:28:51 [place] RESPIRATION 18 11/01/2023 11:28:51 SPRI DARRICK Encounters Combined list of: 1) Encounters from Department of Veterans Affairs facilities going backup to the last 18 months, not all ID inpatient encounters are included; 2) Encounters from the Department of [facility] facilities going backup to 280 months. Location Location Details Encounter Type Encounter Number Reason For Visit Attending Provider ADM Date DC Date Status Disposition Source [facility] Outpatient Encounter [id number] 05/04 [facility] Outpatient Encounter [id number] 06/01 [place] [facility] [place] [facility] OFFICE O/P EST MOD 30 MIN [id number] Diagnos is: ICD-10- CM M25.511 Pain in right luis enriquee NICK Savage 06/01 [facility] [place] [facility] [place] [facility] Outpatient Encounter [id number] 06/01 [facility] [place] [facility] Outpatient Encounter [id number] 06/21 [facility] [place] [facility] Outpatient Encounter [id number] 06/27 [facility] [place] [facility] LD SELF CARE MNGMENT TRAINING [id number] Diagnos is: ICD-10- CM M25.511 Pain in right shoulde MELINDA Roberts HAEL 06/28 [place] THERAPEUTI C EXERCISES [id number] Diagnos is: ICD-10- CM M25.511 Pain in right shoulde r ANDRZEJ,[facility] HAEL 07/04 [place] THERAPEUTI [place] EXERCISES [id number] Diagnos is: ICD-10- CM M25.511 Pain in right shoulde r ANDRZEJ,[facility] HA 07/12 [place] THERAPEUTI [place] EXERCISES [id number] Diagnos is: ICD-10- CM M25.511 Pain in right shoulde r ANDRZEJ,[facility] HA 07/18 [place] SELF CARE MNGMENT TRAINING [id number] Diagnos is: ICD-10- CM M25.511 Pain in right shoulde r ANDRZEJ,MELINDA HA 07/24 [place] [facility] Outpatient Encounter [id number] 08/14 [facility] [place] [place] En[facility] [id number] 08/24 [facility] [place] Encounter [id number] 08/24 [facility] [place] Outpatient Encounter [id number] BRIANA MORENO 08/31 [facility] [place] OFFICE O/P EST LOW 20 MIN [id number] Diagnos is: ICD-10- CM S46.291 S Inj musc/fa sc/tend prt biceps, right arm, sequela WRIGHTANTONINA CHATMAN N 09/01 [facility] IE [facility] En[facility] [id number] 09/03 [facility] Encounter [id number] [facility] [place] LD OFFICE O/P EST MOD 30 MIN [id number] 1BY. 41 Diagnos is: ICD-10- CM N18.30 Chronic kidney disease , stage 3 unspeci cullenkyle ANTONINA WRIGHT N 10/31 [facility] NIURKA ORTEGA [facility] Outpatient Encounter [id number] 11/13 NIURKA JEFF ON [facility] En[facility] [id number] 12/13 [facility] Encounter [id number] 12/28 [facility] Encounter [id number] 03/08 [facility] En[facility] [id number] [facility] Encounter [id number] 1.04/24 [facility] [place] [place] LD OFFICE O/P EST HI 40 MIN [id number] Diagnos is: ICD-10- CM K30 Functio nal dyspeps ia ANTONINA WRIGHT N 04/24 [place] [facility] En[facility] [id number] 04/25 [facility] En[facility] [id number] 04/25 [facility] Encounter [id number] 04/26 [facility] Encounter [id number] 04/27 [facility] Encounter [id number] 04/27 [facility] Encounter [id number] 04/30 [facility] Out[facility] Encounter [id number] 04/30 [facility] [place] ELECTROCAR DIOGRAM TRACING [id number] 1BY. 51 Diagnos is: ICD-10- CM R00.2 Palpita tions ONEL,NI BECKI R 05/04 [facility] [id number] Diagnos is: ICD-10- CM Z13.6 Encount er for screeni ng for cardiov ascular disorde FRANCISCO Scott E 05/04 [facility] Out[facility] Encounter [id number] BRIANA MORENO 05/17 [facility] [place] Outpatient Encounter [id number] JOSHBRIANA Magana N 05/17 [facility] [place] [facility] [place] OFFICE O/P EST MOD 30 MIN [id number] Diagnos is: ICD-10- CM I10 Essenti al (primar y) hyperte nszoya WRIGHTANTONINA Blanchard 05/28 [place] [facility] Outpatient Encounter [id number] 06/08 [facility] SELF CARE MNGMENT TRAINING [id number] Diagnos is: ICD-10- CM M25.512 Pain in left shoulde r ANDRZEJ,MELINDA HAEL 06/13 [place] THERAPEUT[place] EXERCISES [id number] Diagnos is: ICD-10- CM M25.512 Pain in left shoulde r DANCONSTANTINO,MELINDA HAEL 06/26 [place] THERAPEUTI [place] EXERCISES [id number] Diagnos is: ICD-10- CM M25.512 Pain in left shoulde r DANCONSTANTINO,MELINDA HAEL 08/06 [place] [facility] [place] Outpatient Encounter [id number] 08/12 [facility] [place] [facility] Outpatient Encounter [id number] 09/03 [facility] [place] [facility] [place] Outpatient Encounter [id number] 09/11 [facility] [place] [facility] Social History Combined list of available smoking, tobacco, and other social history from Department of Defense and Veterans Affairs facilities. Social History Type Response Date Comment Sourc e Tobacco smoking status NHIS VA-TOBACCO NEVER USED OTHER TYPE 05/28/2024 [facility] History of tobacco use VA-TOBACCO NEVER USED CIGARETTES 05/28/2024 [facility] History of tobacco use VA-TOBACCO NEVER USED 06/01/2023 [place] [facility] [place] [facility] History of tobacco use VA-TOBACCO NEVER USED 01/05/2022 [facility] [place] [facility] History of tobacco use VA-TOBACCO NEVER USED 10/26/2021 NIURKA Caren [facility] History of tobacco use VA-TOBACCO NEVER USED 03/13/2020 NIURKA Fabian [facility] History of tobacco use VA-TOBACCO NEVER USED 01/23/2019 NIURKA Caren [facility] History of tobacco use VA-TOBACCO FORMER USER 10/27/2017 [facility] History of tobacco use LIFETIME NON-TOBACCO USER 04/06/2017 [facility] History of tobacco use LIFETIME NON-TOBACCO USER 02/03/2016 [facility] History of tobacco use FORMER TOBACCO USER 7Y OR GREATER 02/27/2013 [facility] History of tobacco use QUIT TOBACCO >7 YEARS AGO 02/14/2012 [facility] History of tobacco use LIFETIME NON-USER OF TOBACCO 01/08/2011 [facility] Plan of Care List of future care activities from Department of [facility] Affairs facilities. Additional future care activities may be listed in the Assessment and Plan section. Date/Time Care Activity Care Activity Detail Facili ty 11/19/2024 AMBULATORY - [facility]IC[facility] Advance Directives List of completed, amended, or rescinded Advance Directives on record at Department of [facility] Affairs facilities. An actual copy of the Directive is not included. Date Advance Directive Provider Source 01/05/2022 ADVANCE DIRECTIVE MELISSA CLINE [facility] 02/21/2018 ADVANCE DIRECTIVE MINESH HERBERT [facility]
--- OUTSIDE RECORDS SUMMARY | 2024-09-28 08:00 | XMS_ITS | Encounter Summary ---
Author Name [facility] [place] [facility] [place] Address [address] [place] [address] Care Team Providers Care Gambling Broker Name Role Phone ADRIANA MICHA Primary Care Provider UnavailMENDEZ Rees Primary Care Provider Unavail able MACIE NARANJO Primary Care Provider Unavailanastasiia e ABRAHAM, KELLY Unavailable Unavailable JESSIE, CHARITY Unavailable Unavaila MENDEZ Rocha Unavailable Unavailable JENNIFER CALDERÓN Unavailable Unavailable JAI, VENANCIO Unavailable Unavailable Selected Encounter This section includes the information on record at [place] for the Encounter. Date/Time Encounter Type Encounter Description Reason Provider Source Aug 06, 2024 09:30 AM THERAPEUTIC EXERCISES PHYSICAL THERAPY ICD-10-CM M25.512 Pain in left shoulder HERMANN SOLIZ [facility] Encounter Template Text not used by [place] Assessments - Encounter Diagnoses This section includes the primary and secondary diagnoses documented for the Encounter. Date/Time Primary/Secondary Diagnosis Diagnosis Name Provider Source Aug 06, 2024 09:37 AM PRIMARY Pain in left shoulder HERMANN SOLIZ [place] Plan of Treatment: Future Appointments (+ 6 months) and Future Tests (+/- 45 days) The Plan of Treatment section includes future care activities for the patient from all VA treatmentfacilities. This section includes future appointments and future orders which are active, pending or scheduled. Future Appointments This section includes appointments that were scheduled to occur 6 months from the date of the Encounter, up to a maximum of 20 appointments. The data comes from all [place] treatment facilities. Appointment Date/Time Appointment Type Appointme nt Facility Name Nov 19, 2024 10:30 AM AMBULATORY - MEDICINE [place] Dec 11, 2024 03:30 PM AM[facility]ULATORY - MEDICINE [facility] [place] [facility] Social History: Smoking Status (Most current) and Tobacco Use (All prior to encounter date) This section includes the most current, and the historical, smoking and tobacco- related health factors from the [place] facility where the Encounter took place. Current Smoking Status This section includes the most current smoking, or tobacco-related health factor, from the [place] facility where the Encounter took place. Date/Time Current Smoking Status Comment Facil ity May 28, 2024 10:30 AM [place]-TOBACCO NEVER USED CIGARETTES [place] Tobacco Use History This section includes a history of the smoking, or tobacco-related health factors, that were collected on or before the date of the Encounter. The data comes from the [place] facility where the Encounter took place. Date/Time Smoking Status/Tobacco Use Comment F acility May 28, 2024 10:30 AM [place]-TOBACCO NEVER USED OTHER TYPE [place] Advance Directives: All historical and current Section Date Range: From patient's date of to the date document was created. This section includes ALL of a patient's completed or amended [place] Advance and Rescinded Directives. The entries below indicate that a directive exists for the patient, but an actual copy is not included with this document. The data comes from all [place] facilities. Date Advance Directives Provider Source Jan 05, 2022 ADVANCE DIRECTIVE MELISSA CLINE [facility] Feb 21, 2018 ADVANCE DIRECTIVE MINESH HERBERT [facility] Encounter Notes: All associated encounter notes This section contains the clinical notes associated to the Encounter. Date/Time Encounter Note(s) Provider Source Aug 06, 2024 09:29 AM PHYSICAL THERAPY N OTE: LOCAL TITLE: PHYSICAL THERAPY STANDARD TITLE: PHYSICAL THERAPY NOTE DATE OF NOTE: AUG 06, 2024@09:29 ENTRY DATE: AUG 06, 2024@09:29:07 AUTHOR: HERMANN SOLIZ COSIGNER: URGENCY: STATUS: COMPLETED Initial Evaluation date: 06/13/23 Progress Note Date: 07/14/23 Treatment #: 2 Treatment time: 30 Diagnosis: Pain in left Shoulder(ICD-10-CM M25.512) Provider: MICHA WRIGHT PT Treatment Precautions: HIV+, hx HTN controlled with meds Patient identified by full name and date of SUBJECTIVE: patient states the shoulder pain has improved since initial eval. Still doesn't feel like it is at 100% though OBJECTIVE: Therapeutic Exercise: Mins: 27 body blade punches and ER/IR 3x30s cane shoulder flexion 3x30s cane shoulder abduction 3x30s sidelying shoulder ER [id number] 2lbs towel slides flexion 3x30s sidelying shoulder abduction [id number] 1lb weight 3s eccentric seated shoulder 90/90 ER 2x20 2lbs 3s eccentric Manual therapy: Mins: Neuro re-ed: Mins: Other: Mins: Modalities: Mins: [] contraindication screen completed prior to modality [] skin intact pre/post modality Access Code: [email or web address] URL: [email or web address] Date: 06/26/2024 Prepared by: Hermann Soliz Exercises - Standing Shoulder Row with Anchored Resistance - 1 x daily - 7 x weekly - 2-3 sets - 10-20 reps - Shoulder extension with resistance - Neutral - 1 x daily - 7 x weekly - 2-3 sets - 10-20 reps - Shoulder External Rotation with Anchored Resistance - 1 x daily - 7 x weekly - 2-3 sets - 10-20 reps - Standing Shoulder Abduction Reactive Isometrics with Elbow Extended - 1 x daily - 7 x weekly - 2-3 sets - 10-20 reps - Sidelying Shoulder ER with Towel and Dumbbell - 1 x daily - 7 x weekly - 2-3 sets - 10-20 reps - Prone Scapular Retraction - 1 x daily - 7 x weekly - 2-3 sets - 10-20 reps - Supine Scapular Protraction in Flexion with Dumbbells - 1 x daily - 7 x weekly - 2-3 sets - 20 reps - Shoulder Flexion Wall Slide with Towel - 1 x daily - 7 x weekly - 2-3 sets - 10-20 reps Patient Education - Shoulder Impingement PATIENT EDUCATION: Mins: 2 Patient education was provided for all aspects of care during this clinical encounter. Provided updated written HEP to patient reviewing proper form sets reps and frequency and safety precautions with patient verbalizing and demonstrating good understanding during visit. ASSESSMENT: Patient seen for routine follow up. Provided isntruction through progressions in RTC and periscapular strengthening exercises, as well as AAROM exercises for the L shoulder with good tolerance from patient. Some soreness with sidelying abduction, however this was reported to be a mild tolerable level or soreness; no pain reported with other therex today. Provided updated written HEP for carryover reviewing with patient. PLAN: Progress as tolerated focusing on progressive rotator cuff, seratus, periscapular strengthening, improving UE flexibility, HEP teaching and progression [x]Low impact cardio: [x]Nustep []Recumbent bike []Recumbent elliptical []TM []Manual: []STM/DTM []METs/SCS []IASTM []Joint mobilizations [x]Therex: [x]Progressive UQ [x]Progressive Core []Progressive LQ [x]UQ flex [] Lumbar flex []LQ flex [x]Foam rolling []Proprioception []Neuro Re-education: []Static []Dynamic []Dual-Task [x]Education: [x]Posture []Ergonomics [x]Bodymechanics [x]Self-care strategies []PNE []Modalities(PRN): []Heat/Ice []Estim/Tens []Mechanical traction []K-tape [] Biofreeze /es/ HERMANN SOLIZ PT, DPT PHYSICAL THERAPIST Signed: 08/06/2024 10:04 HERMANN SOLIZ [place]
--- OUTSIDE RECORDS SUMMARY | 2024-09-28 08:00 | XMS_ITS ---
Author Name [facility] [place] [facility] [place] Address [address] [place] [address] Care Team Providers Care Microbiology Lab Analyst Name Role Phone MICHA WRIGHT Primary Care Provider UnavailMENDEZ Rees Primary Care Provider Unavail able MACIE NARANJO Primary Care Provider Unavailabl e ABRAHAM, KELLY Unavailable Unavailable CHARITY ROMAN Unavailable Unavaila MENDEZ Rocha Unavailable Unavailable JENNIFER CALDERÓN Unavailable Unavailable JAI, VENANCIO Unavailable Unavailable Selected Encounter This section includes the information on record at [place] for the Encounter. Date/Time Encounter Type Encounter Description Reason Pro vider Source Nov 14, 2023 04:14 PM Outpatient Encounter ADMIN PAT ACTIVTIES (MASNONCT) IHE Encounter Template Text not used by [place] Plan of Treatment: Future Appointments (+ 6 [...] 20 appointments. The data comes from all [place] treatment facilities. Appointment Date/Time Appointment Type Appointme nt Facility Name Dec 29, 2023 09:00 AM AMBULATORY [place]ICINE [place] [facility] Apr 24, 2024 10:00 AM AMBULATORY - MEDICINE [facility] May 04, 2024 09:45 AM AMBULATORY - MEDICINE [facility] Lab Results: +/- 30 days of the encounter This section includes the Chemistry and Hematology Lab Results on record with [place] for the patient. Radiology Reports and Pathology Reports are provided separately, in subsequent sections. Lab Results This section contains the Chemistry/Hematology Results that were resulted 30 days before or 30 daysafter the date of the Encounter. Date/Time Source Result Type Result - Unit Interpretation Reference Range Specimen Type Comment Oct 31, 2023 11:29 AM [facility] FOLATE (WROX) SERUM Specimen Type: SERUM No comment entered. Ordering Provider: MICHA WRIGHT Report Released Date/Time: Sep 02, 2023 11:21 AM Reporting [facility] [address] [facility] [address] Performing Lab: [facility] [address] [facility] [address] FOLATE (WROX) 6.59 ng/mL >5.2 Oct 31, 2023 11:29 AM [facility] VITAMIN D (25-OH) SERUM Specimen Type: SERUM No comment entered. Ordering Provider: MICHA WRIGHT Report Released Date/Time: Sep 02, 2023 11:21 AM Reporting [facility]: [facility] [address] [facility] [address] Performing Lab: [address] [address] VITAMIN D (25-OH) 38 ng/mL 20-50 Oct 31, 2023 11:29 AM [facility] VITAMIN B12 SERUM Specimen Type: SERUM No comment entered. Ordering Provider: MICHA WRIGHT Report Released Date/Time: Sep 02, 2023 11:21 AM Reporting Lab: [facility] [address] [facility] [address] Performing Lab: [address] [address] VITAMIN B12 1587 pg/mL H 200-900 Oct 31, 2023 11:29 AM [facility] RETICULOCYTES BLOOD Specimen Type: BLOOD No comment entered. Ordering Provider: MICHA WRIGHT Report Released Date/Time: Sep 02, 2023 11:21 AM Reporting Lab: [facility] [address] [facility] [address] Performing Lab: [facility] [address] [facility] [address] RETIC % 0.9 0.6-2.0 RETIC, ABS 42.4 10*3/uL 30.0-90.0 Ret-He % 31.7 27.9-42.0 Oct 31, 2023 11:29 AM [facility] HEMOGLOBIN A1C PANEL BLOOD Specimen T ype: BLOOD Comment: Values obtained from A1C measurements can vary. For atypical A1C assays, a reported value of 7.0 could actually be between 6.72 and 7.28 if measured by a reference method. A reported value of 9.0 could actually be between 8.73 and 9.27. Ref: http://www.ngsp.org/CAPdata.asp Ordering Provider: MICHA WRIGHT Report Released Date/Time: Sep 02, 2023 11:21 AM Reporting Lab: [facility] [address] [facility] [address] Performing Lab: [facility] [address] [address] HEMOGLOBIN A1C 5.5 4.0-5.6 Oct 31, 2023 11:29 AM [facility] PSA SERUM Sp ecimen Type: SERUM No comment entered. Ordering Provider: MICHA WRIGHT Report Released Date/Time: Sep 02, 2023 11:21 AM Reporting Lab: [facility] [address] [facility] [address] Performing Lab: [facility] [address] PSA 0.72 ng/mL 0.00-4.00 Oct 31, 2023 11:29 AM [facility] MICROALBUMIN CREATININE RATIO PANEL URINE Specimen Type: URINE No comment entered. Ordering Provider: MICHA WRIGHT Report Released Date/Time: Sep 02, 2023 11:21 AM Reporting Lab: [facility] [address] [address] Performing Lab: [address] [address] MICROALBUMIN/CREATININE RATIO 33.2 mg/g H 0-29.9 MICROALBUMIN,QUANTITATIVE 1.2 mg/dL RR U NAVAIL CREATININE URINE 36.16 mg/dL Oct 31, 2023 11:29 AM [facility] URINALYSIS URINE S pecimen Type: URINE Comment: If Glucose = >500 and Ketones are positive, please alert the Physician. Ordering Provider: MICHA WRIGHT Report Released Date/Time: Sep 02, 2023 11:21 AM Reporting Lab: [address] [address] Performing Lab: [address] [address] UA COLOR Colorless Yellow UA APPEARANCE Clear Clear UA GLUCOSE NEGATIVE mg/dL Negative UA KETONES NEGATIVE mg/dL Negative UA BLOOD NEGATIVE mg/dL Negative UA PROTEIN NEGATIVE mg/dL Negative UA NITRITE NEGATIVE mg/dL Negative UA BILIRUBIN NEGATIVE mg/dL Negative UA SPECIFIC GRAVITY 1.006 L 1.016-1.022 UA pH 7.0 5.0-9.0 UA UROBILINOGEN <2.0 mg/dL <2.0 UA LEUKOCYTE NEGATIVE Negative Oct 31, 2023 11:29 AM [facility] BASIC METABOLIC PANEL (fasting) SERUM Specimen Type: SERUM No comment entered. Ordering Provider: MICHA WRIGHT Report Released Date/Time: Sep 02, 2023 11:21 AM Reporting Lab: [address] [address] Performing Lab: [address] [address] UREA NITROGEN 16 mg/dL 7-25 GLUCOSE 97 mg/dL 65-100 SODIUM 138 mmol/L 135-145 POTASSIUM 3.8 mmol/L 3.5-5.0 CHLORIDE 102 mmol/L 100-110 CO2 27 meq/L 20-30 CREATININE, Serum 1.52 mg/dL H 0.50-1.40 eGFR(CKD-EPI 2020) 51 mL/min L >60 Oct 31, 2023 11:29 AM [facility] LIVER FUNCTION SERUM Specimen Type: SERUM No comment entered. Ordering Provider: MICHA WRIGHT Report Released Date/Time: Sep 02, 2023 11:21 AM Reporting [facility] [address] [address] Performing Lab: [facility] [address] [address] PROTEIN,TOTAL 6.6 g/dL 6.0-8.3 ALBUMIN 3.9 g/dL 3.5-5.0 ALKALINE PHOSPHATASE 79 U/L 40-150 AST 16 U/L 5-34 ALT 12 U/L BILIRUBIN, TOTAL 0.8 mg/dL 0.2-1.2 Oct 31, 2023 11:29 AM [facility] LIPID PANEL FASTING SERUM Specimen Ty pe: SERUM No comment entered. Ordering Provider: MICHA WRIGHT Report Released Date/Time: Sep 02, 2023 11:21 AM Reporting Lab: [address] [address] Performing Lab: [address] [address] CHOLESTEROL 137 mg/dL TRIGLYCERIDE 75 mg/dL 0-150 LDL calculated 73 mg/dL 0-129 CHOL/HDL 2.8 HDL CHOLESTEROL 49 mg/dL 40-60 Oct 31, 2023 11:29 AM [facility] CALCIUM SERUM Sp ecimen Type: SERUM No comment entered. Ordering Provider: MICHA WRIGHT Report Released Date/Time: Sep 02, 2023 11:21 AM Reporting Lab: [address] [address] Performing Lab: [facility] [address] CALCIUM 9.4 mg/dL 8.5-10.2 Oct 31, 2023 11:29 AM [facility] URIC ACID SERUM Sp ecimen Type: SERUM No comment entered. Ordering Provider: MICHA WRIGHT Report Released Date/Time: Sep 02, 2023 11:21 AM Reporting Lab: [facility] [address] [address] Performing Lab: [address] [address] URIC ACID 6.2 mg/dL 3.5-7.2 Oct 31, 2023 11:29 AM [facility] FERRITIN SERUM Sp ecimen Type: SERUM No comment entered. Ordering Provider: MICHA WRIGHT Report Released Date/Time: Sep 02, 2023 11:21 AM Reporting Lab: [address] [address] Performing Lab: [address] [address] FERRITIN 50 ng/mL 20-300 Oct 31, 2023 11:29 AM [facility] CBC AND DIFF (AUTO) BLOOD Specimen Ty pe: BLOOD No comment entered. Ordering Provider: MICHA WRIGHT Report Released Date/Time: Sep 02, 2023 11:21 AM Reporting Lab: [address] [address] Performing Lab: [address] [address] WBC 4.31 10*3/uL L 4.50-11.00 RBC 4.87 10*6/uL 4.23-5.66 HGB 13.6 g/dL 12.8-17 HCT 42.4 39.2-50.4 MCV 87.1 fL 82-99 MCHC 32.1 g/dL 30.8-35.1 PLT 182 10*3/uL 140-360 RDW-CV 12.9 12.0-16.0 [place], Abs 0.37 10*3/uL 0.30-1.10 MCH 27.9 pg 26.2-32.6 Neut % 34.6 L 43.7-75.8 Lymph % 50.1 H 14.0-42.3 [place] % 8.6 5.1-13.7 Eos % 5.6 0.4-6.8 Baso % 0.9 0.1-2.0 Neut, Abs 1.49 10*3/uL L 2.20-7.60 Lymph, Abs 2.16 10*3/uL 1.00-3.20 Eos, Abs 0.24 10*3/uL 0.03-0.44 Baso, Abs 0.04 10*3/uL 0.01-0.13 Immature Gran % 0.2 0.0-0.7 Immature Gran, Abs 0.01 10*3/uL 0.00-0.0 6 Social History: Smoking Status (Most current) and Tobacco Use (All prior to encounter date) This section includes the most current, and the historical, smoking and tobacco- related health factors from the [place] facility where the Encounter took place. Current Smoking Status This section includes the most current smoking, or tobacco-related health factor, from the [place] facility where the Encounter took place. Date/Time Current Smoking Status Comment Facil ity Oct 26, 2021 12:29 PM VA-TOBACCO NEVER USED [facility] Tobacco Use History This section includes a history of the smoking, or tobacco-related health factors, that were collected on or before the date of the Encounter. The data comes from the [place] facility where the Encounter took place. Date/Time Smoking Status/Tobacco Use Comment F acility Mar 13, 2020 08:53 AM [place]-TOBACCO NEVER USED [facility] Jan 23, 2019 09:57 AM [place]-TOBACCO NEVER USED [facility] Advance Directives: All historical and current Section Date Range: From patient's date of to the date document was created. This section includes ALL of a patient's completed or amended [place] Advance and Rescinded Directives. The entries below indicate that a directive exists for the patient, but an actual copy is not included with this document. The data comes from all [place] facilities. Date Advance Directives Provider Source Jan 05, 2022 ADVANCE DIRECTIVE MELISSA CLINE Feb 21, 2018 ADVANCE DIRECTIVE MINESH [facility] Encounter Notes: All associated encounter notes This section contains the clinical notes associated to the Encounter. Date/Time Encounter Note(s) Provider Source Nov 14, 2023 04:14 PM PRIMARY CARE ADMINISTRATIVE NOTE: LOCAL TITLE: PCMM TRAVELING COORDINATION STANDARD TITLE: PRIMARY CARE ADMINISTRATIVE NOTE DATE OF NOTE: NOV 14, 2023@16:14 ENTRY DATE: NOV 14, 2023@16:14:47 AUTHOR: CLAIR JOHNSON EXP COSIGNER: URGENCY: STATUS: COMPLETED PCMM TRAVELING COORDINATION Has ADDENDA C completed chart review. PCMM alert NOT processed and approved for permanent relocation to [facility]. Follow up with PCMM coordinator. /juan carlos/ CLAIR JOHNSON DNP, APNP, CNC SERVICE TECHNICIAN-BC Signed: 11/14/2023 16:15 Receipt Acknowledged By: 11/15/2023 09:25 /juan carlos/ CRISTA GREENE PCMM Coordinator 11/15/2023 ADDENDUM STATUS: COMPLETED [place] is not relocating. [facility] has cancelled assignment to [facility] per [facility] appts in [place]. /juan carlos/ CRISTA GREENE PCM Coordinator Signed: 11/15/2023 09:27 CLAIR JOHNSON [facility]
--- OUTSIDE RECORDS SUMMARY | 2024-09-28 08:00 | XMS_ITS | Patient Health Record ---
Author Organization [facility] Address [address] [place] [address] Care Team Providers Care Living Coach Name Role Phone Hitesh Hopper Primary Care Provider Unavailabl e Gregg Henry Jr Unavailable Allergies Allergen (clinical drug ingredient) Drug/Non Drug Allergy documented on EMR Reaction Allergy Type Onset Date Status lisinopril Lisinopril Unknown Drug Allergy Activ e Reason For Referral Referring Provider First Name Hitesh Referring Provider Last Name Ruchi Referred Organization [facility] Referred Provider Gregg Henry Jr Referred Address [address] [place] [address],[address],[place], [place],[address], Referred Provider Specialty Gastroentero logy Referral Priority Routine Medications Medication SIG (Take, Route, Frequency, Duration) Notes Start Date End Date Status hydroCHLOROthiazide 25 MG 1 tablet in th e morning Orally Once a day for 30 day(s) 09/03/2024 Active Metoprolol Succinate 25 MG 1 capsule Ora lly Once a day for 30 day(s) 09/03/2024 Active Atorvastatin Calcium 40 MG 1 tablet Oral ly Once a day for 30 day(s) 09/03/2024 Active Vitamin B 12 100 MCG as directed Orally 09/03/2024 Active Juluca 50-25 MG 1 tablet with a meal Orally Once a day for 30 day(s) 09/03/2024 Active Vitamin D3 2400 UNIT/ML as directed 09/03/2024 Active Alendronate Sodium 10 MG 1 tablet 30 min utes before the first food, beverage or medicine of the day with plain water Orally Once a day for 30 day(s) 09/03/2024 Active Aspirin 81 81 MG 1 tablet Orally Once a day for 30 day(s) 09/03/2024 Active Immunizations Vaccine Route Administration Date Status Comme nts Influenza Unknown 07/06/2023 Administered Social History Tobacco Use: Social History Observation Description Date Details (start date - stop date) Never Smoker NA - NA Tobacco Control (Standard) Question Answer Notes Tobacco use: Nonsmoker AUDIT-C (Standard) Question Answer Notes Did you have a drink containing alcohol in the p ast year? No Points 0 Interpretation Negative Problems No Known Problems Vital Signs Temperature 97.7 degrees Fahrenheit 09/03/2024 Blood pressure diastolic 01 mm Hg 09/03/2024 Height 67 in 09/03/2024 Blood pressure systolic 001 mm Hg 09/03/2024 Weight 160 lbs 09/03/2024 BMI 25.06 kg/m2 09/03/2024 Encounters Encounter Location Date Provider Diagnosis [facility] [address] [place] [address] 09/03/2024 Gregg Henry Jr Epigastric pain R10.13 and Colon cancer screening Z12.11 Assessments Encounter Date Diagnosis (ICD Code) Assessment Notes Treatment Notes Treatment Clinical Notes Section Notes 09/03/2024 Colon cancer screening (ICD-10 - Z12.11) Endoscopy material was printed We recommended further evaluation of his epigastric pain today. We discussed differential diagnosis for causes. Upper endoscopy will be arranged. For gas symptoms, he can use OTC anti-gas agents as needed. He is due for follow-up colonoscopy as well. He is advised to stop aspirin 1 week before the procedure and HCTZ the day before the procedure. Follow-up will be pending these results. 09/03/2024 Epigastric pain (ICD-10 - R10.13) We recommended further evaluation of his epigastric pain today. We discussed differential diagnosis for causes. Upper endoscopy will be arranged. For gas symptoms, he can use OTC anti-gas agents as needed. He is due for follow-up colonoscopy as well. He is advised to stop aspirin 1 week before the procedure and HCTZ the day before the procedure. Follow-up will be pending these results. Plan Of Treatment Future Test Test Name Order Date UPPER GI ENDOSCOPY 09/03/2024 COLONOSCOPY 09/03/2024 Next Appt Details Provider Name:Gregg manley Jr, 10/23/2024 10:00:00 AM, [address] [place] [address] , [place], [place], [id number], Insurance Providers Payer Name Payer Address Payer Phone Subscriber Number Group Number Insured Name Patient Relationship to Insured Coverage Start Date Coverage End Date [facility] [employer] [address] [place] [address] [phone] [id number] DAYSI UNGER Self - patient is the insured Medical (General) History Medical History History ICD Code CVA, Right eye visual field defect Hypertension HIV infection Osteoporosis Chronic kidney disease stage III Colonoscopy 2019, history of colon polyp s, 5-year follow-up Surgical History Surgery Date(Month/Year) testicular torsion
--- OUTSIDE RECORDS SUMMARY | 2024-09-28 08:00 | XMS_ITS | Encounter Summary ---
Author Name [facility] Organization [facility] Address [address] [place] [address] Care Team Providers Care Physician Obstetrician Name Role Phone MICHA WRIGHT Primary Care Provider UnavailMACIE Hansen Primary Care Provider UnavailKELLY Alves Unavailable Unavailable HCARITY ROMAN Unavailable Unavaila MENDEZ Rocha Unavailable Unavailable JENNIFER CALDERÓN Unavailable Unavailable VENANCIO VERGARA Unavailable Unavailable MENDEZ BADILLO Primary Care Provider Unavail able Selected Encounter This section includes the information on record at OR for the Encounter. Date/Time Encounter Type Encounter Description Reason Provider Source Nov 01, 2023 11:00 AM OFFICE O/P EST MOD 30 MIN PRIMARY CARE/MEDICINE ICD-10-CM N18.30 Chronic kidney disease, stage 3 unspecified MICHA WRIGHT Encounter Template Text not used by OR Assessments - Encounter Diagnoses This section includes the primary and secondary diagnoses documented for the Encounter. Date/Time Primary/Secondary Diagnosis Diagnosis Name Provider Source Nov 01, 2023 02:34 PM PRIMARY Chronic kidney disease, stage 3 unspecified MICHA WRIGHT Nov 01, 2023 02:34 PM SECONDARY Asymptomatic human immunodeficiency virus infection status MICHA WRIGHT [facility] Nov 01, 2023 02:34 PM SECONDARY Essential (primary) hypertension MICHA WRIGHT [facility] Plan of Treatment: Future Appointments (+ 6 months) and Future Tests (+/- 45 days) The Plan of Treatment section includes future care activities for the patient from all OR treatmentfacilities. This section includes future appointments and future orders which are active, pending or scheduled. Future Appointments This section includes appointments that were scheduled to occur 6 months from the date of the Encounter, up to a maximum of 20 appointments. The data comes from all OR treatment facilities. Appointment Date/Time Appointment Type Appointme nt Facility Name Dec 29, 2023 09:00 AM AMBULATORY - MEDICINE [facility] Apr 24, 2024 10:00 AM AMBULATORY - MEDICINE [facility] Lab Results: +/- 30 days of the encounter This section includes the Chemistry and Hematology Lab Results on record with OR for the patient. Radiology Reports and Pathology Reports are provided separately, in subsequent sections. Lab Results This section contains the Chemistry/Hematology Results that were resulted 30 days before or 30 daysafter the date of the Encounter. Date/Time Source Result Type Result - Unit Interpretation Reference Range Specimen Type Comment Oct 31, 2023 11:29 AM [facility] FOLATE (WROX) SERUM Specimen Type: SERUM No comment entered. Ordering Provider: MICHA WRIGHT Report Released Date/Time: Sep 02, 2023 11:21 AM Reporting Lab: [facility] [address] [facility] [address] Performing Lab: [facility] [address] [facility] [address] FOLATE (WROX) 6.59 ng/mL >5.2 Oct 31, 2023 11:29 AM [facility] VITAMIN D (25-OH) SERUM Specimen Type: SERUM No comment entered. Ordering Provider: MICHA WRIGHT Report Released Date/Time: Sep 02, 2023 11:21 AM Reporting Lab: [facility] [address] [facility] [address] Performing Lab: [facility] [address] [facility] [address] VITAMIN D (25-OH) 38 ng/mL 20-50 Oct 31, 2023 11:29 AM [facility] VITAMIN B12 SERUM Specimen Type: SERUM No comment entered. Ordering Provider: MICHA WRIGHT Report Released Date/Time: Sep 02, 2023 11:21 AM Reporting Lab: [facility] [address] Performing Lab: [facility] [address] [address] VITAMIN B12 1587 pg/mL H 200-900 Oct 31, 2023 11:29 AM [facility] RETICULOCYTES BLOOD Specimen Type: BLOOD No comment entered. Ordering Provider: MICHA WRIGHT Report Released Date/Time: Sep 02, 2023 11:21 AM Reporting Lab: [facility] [address] [address] Performing Lab: [facility] [address] [address] RETIC % 0.9 0.6-2.0 RETIC, ABS 42.4 10*3/uL 30.0-90.0 Ret-He % 31.7 27.9-42.0 Oct 31, 2023 11:29 AM [facility] HEMOGLOBIN A1C PANEL BLOOD Specimen T ype: [...] Sep 02, 2023 11:21 AM Reporting Lab[facility] [address] Performing Lab: [facility] [address] HEMOGLOBIN A1C 5.5 4.0-5.6 Oct 31, 2023 11:29 AM [facility] PSA SERUM Sp ecimen Type: SERUM No comment entered. Ordering Provider: MICHA WRIGHT Report Released Date/Time: Sep 02, 2023 11:21 AM Reporting Lab: [facility] [address] [address] Performing Lab: [facility] [address] [address] PSA 0.72 ng/mL 0.00-4.00 Oct 31, 2023 11:29 AM [facility] URINALYSIS URINE S pecimen Type: URINE Comment: If Glucose = >500 and Ketones are positive, please alert the Physician. Ordering Provider: MICHA WRIGHT Report Released Date/Time: Sep 02, 2023 11:21 AM Reporting Lab: [address] [address] Performing Lab: [address] [address] UA COLOR Colorless Yellow UA APPEARANCE Clear Clear UA GLUCOSE NEGATIVE mg/dL Negative UA KETONES NEGATIVE mg/dL Negative UA BLOOD NEGATIVE mg/dL Negative UA PROTEIN NEGATIVE mg/dL Negative UA NITRITE NEGATIVE mg/dL Negative UA BILIRUBIN NEGATIVE mg/dL Negative UA SPECIFIC GRAVITY 1.006 L 1.016-1.022 UA pH 7.0 5.0-9.0 UA UROBILINOGEN <2.0 mg/dL <2.0 UA LEUKOCYTE NEGATIVE Negative Oct 31, 2023 11:29 AM [facility] MICROALBUMIN CREATININE RATIO PANEL URINE Specimen Type: URINE No comment entered. Ordering Provider: MICHA WRIGHT Report Released Date/Time: Sep 02, 2023 11:21 AM Reporting Lab: [address] [address] Performing Lab: [address] [address] MICROALBUMIN/CREATININE RATIO 33.2 mg/g H 0-29.9 MICROALBUMIN,QUANTITATIVE 1.2 mg/dL RR U NAVAIL CREATININE URINE 36.16 mg/dL Oct 31, 2023 11:29 AM [facility] BASIC METABOLIC PANEL (fasting) SERUM Specimen Type: SERUM No comment entered. Ordering Provider: MICHA WRIGHT Report Released Date/Time: Sep 02, 2023 11:21 AM Reporting Lab: [address] [address] Performing Lab: [address] [address] UREA NITROGEN 16 mg/dL 7-25 GLUCOSE 97 mg/dL 65-100 SODIUM 138 mmol/L 135-145 POTASSIUM 3.8 mmol/L 3.5-5.0 CHLORIDE 102 mmol/L 100-110 CO2 27 meq/L 20-30 CREATININE, Serum 1.52 mg/dL H 0.50-1.40 eGFR(CKD-EPI 2020) 51 mL/min L >60 Oct 31, 2023 11:29 AM [facility] LIVER FUNCTION SERUM Specimen Type: SERUM No comment entered. Ordering Provider: MCIHA WRIGHT Report Released Date/Time: Sep 02, 2023 11:21 AM Reporting Lab: [facility] [address] [address] Performing Lab: [address] [address] PROTEIN,TOTAL 6.6 g/dL 6.0-8.3 ALBUMIN 3.9 g/dL 3.5-5.0 ALKALINE PHOSPHATASE 79 U/L 40-150 AST 16 U/L 5-34 ALT 12 U/L BILIRUBIN, TOTAL 0.8 mg/dL 0.2-1.2 Oct 31, 2023 11:29 AM [facility] LIPID PANEL FASTING SERUM Specimen Ty pe: SERUM No comment entered. Ordering Provider: MICHA WRIGHT Report Released Date/Time: Sep 02, 2023 11:21 AM Reporting Lab: [facility] [address] [facility] [address] Performing Lab: [facility] [address] [address] CHOLESTEROL 137 mg/dL TRIGLYCERIDE 75 mg/dL 0-150 LDL calculated 73 mg/dL 0-129 CHOL/HDL 2.8 HDL CHOLESTEROL 49 mg/dL 40-60 Oct 31, 2023 11:29 AM [facility] CALCIUM SERUM Sp ecimen Type: SERUM No comment entered. Ordering Provider: MICHA WRIGHT Report Released Date/Time: Sep 02, 2023 11:21 AM Reporting Lab: [facility] [address] [facility] [address] Performing Lab: [facility] [address] [address] CALCIUM 9.4 mg/dL 8.5-10.2 Oct 31, 2023 11:29 AM [facility] URIC ACID SERUM Sp ecimen Type: SERUM No comment entered. Ordering Provider: MICHA WRIGHT Report Released Date/Time: Sep 02, 2023 11:21 AM Reporting Lab: [address] [address] Performing Lab: [address] [address] URIC ACID 6.2 mg/dL 3.5-7.2 Oct 31, 2023 11:29 AM [facility] FERRITIN SERUM Sp ecimen Type: SERUM No comment entered. Ordering Provider: MICHA WRIGHT Report Released Date/Time: Sep 02, 2023 11:21 AM Reporting Lab: [address] [address] Performing Lab: [address] [address] FERRITIN 50 ng/mL 20-300 Oct 31, 2023 11:29 AM [facility] CBC AND DIFF (AUTO) BLOOD Specimen Ty pe: BLOOD No comment entered. Ordering Provider: MICHA WRIGHT Report Released Date/Time: Sep 02, 2023 11:21 AM Reporting Lab: [address] [address] Performing Lab: [address] [address] WBC 4.31 10*3/uL L 4.50-11.00 RBC 4.87 10*6/uL 4.23-5.66 HGB 13.6 g/dL 12.8-17 HCT 42.4 39.2-50.4 MCV 87.1 fL 82-99 MCHC 32.1 g/dL 30.8-35.1 PLT 182 10*3/uL 140-360 RDW-CV 12.9 12.0-16.0 [place], Abs 0.37 10*3/uL 0.30-1.10 MCH 27.9 pg 26.2-32.6 Neut % 34.6 L 43.7-75.8 Lymph % 50.1 H 14.0-42.3 [place] % 8.6 5.1-13.7 Eos % 5.6 0.4-6.8 Baso % 0.9 0.1-2.0 Neut, Abs 1.49 10*3/uL L 2.20-7.60 Lymph, Abs 2.16 10*3/uL 1.00-3.20 Eos, Abs 0.24 10*3/uL 0.03-0.44 Baso, Abs 0.04 10*3/uL 0.01-0.13 Immature Gran % 0.2 0.0-0.7 Immature Gran, Abs 0.01 10*3/uL 0.00-0.0 6 Vital Signs: All taken on the encounter date This section contains inpatient and outpatient Vital Signs collected on the date of the Encounter. Date/Time Temperature Pulse Blood Pressure Respiratory Rate SP02 Pain Height Weight Body Mass Index Source Nov 01, 2023 11:28 AM 59 130/89 18 95 154 23 [facility] Advance Directives: All historical and current Section Date Range: From patient's date of to the date document was created. This section includes ALL of a patient's completed or amended OR Advance and Rescinded Directives. The entries below indicate that a directive exists for the patient, but an actual copy is not included with this document. The data comes from all OR facilities. Date Advance Directives Provider Source Jan 05, 2022 ADVANCE DIRECTIVE MELISSA CLINE [facility] Feb 21, 2018 ADVANCE DIRECTIVE MINESH HERBERT [facility] Encounter Notes: All associated encounter notes This section contains the clinical notes associated to the Encounter. Date/Time Encounter Note(s) Provider Source Nov 01, 2023 11:29 AM PREVENTIVE MEDICIN E NURSING NOTE: LOCAL TITLE: CLINICAL REMINDERS/NURSING STANDARD TITLE: PREVENTIVE MEDICINE NURSING NOTE DATE OF NOTE: NOV 01, 2023@11:29 ENTRY DATE: NOV 01, 2023@11:29:29 AUTHOR: RASHMI VILLAFANA EXP COSIGNER: URGENCY: STATUS: COMPLETED Hepatitis B Serology/Immunization: The patient declines to have HBV serology done. Reason: The patient declines to receive the recommended dose of Hepatitis B vaccine. Immunization: HEP B, UNSPECIFIED FORMULATION Refusal Reason: PATIENT DECISION Patient refuses all immunization(s) in the HepB group Date Documented: 11/01/23 11:30 Hepatitis A Vaccine for High Risk: Patient declines/refuses Hepatitis A immunization Immunization: HEP A, UNSPECIFIED FORMULATION Refusal Reason: PATIENT DECISION Patient refuses all immunization(s) in the HepA group Date Documented: 11/01/23 11:30 The patient declines to have Hepatitis A serology done. Reason: Influenza Immunization: No influenza vaccination was received during the recent influenza season. Pneumococcal PPSV23 (Pneumovax): The patient declines to receive the recommended dose of PPSV23 vaccine. Immunization: PNEUMOCOCCAL POLYSACCHARIDE PPV23 Refusal Reason: PATIENT DECISION Patient refuses all immunization(s) in the PneumoPPV group Date Documented: 11/01/23 11:30 COVID-19 Immunization: Refused Moderna Monovalent COVID-19 vaccine Immunization: COVID-19 (MODERNA), MRNA, LNP-S, PF, 50 MCG/0.5 ML (AGES 12+ YEARS) Refusal Reason: PATIENT DECISION Patient refuses all immunization(s) in the COVID-19 group Date Documented: 11/01/23 11:31 RHS Screen: RHS Screen Environmental Check Upon inquiry, the individual reports that the environment is safe to proceed. Informed Consent to Screen and Document The individual consents to proceed with screening. The individual consents to documentation of responses. PRIMARY SCREEN: In the past 12 months, how often did a current or former intimate partner (e.g., boyfriend, girlfriend, , , sexual partner): 1. Scream or curse at you Never 2. Insult or talk down to you Never 3. Threaten you with harm Never 4. Physically hurt you Never 5. Force or pressure you to have sexual contact against your will, or when you were unable to say no Never ?? The HITS tool (items 1-4 above) is US copyright protected by Chase Shea MD, and the user has full rights to use it throughout the OR system. PRIMARY SCREEN RESULT: The Primary Screen is NEGATIVE. The individual answered never to all forms of IPV above (i.e., answered never to all 5 items) The individual accepts education and/or resources: No EDUCATION: Other: /juan carlos/ RASHMI VILLAFANA LPN LICENSED PRACTICAL NURSE Signed: 11/01/2023 11:47 RASHMI VILLAFANA Nov 01, 2023 11:11 AM PHYSICIAN BERRY Haddad NOTE: LOCAL TITLE: PA NOTE STANDARD TITLE: PHYSICIAN ABSTRACT SEARCHER NOTE DATE OF NOTE: NOV 01, 2023@11:11 ENTRY DATE: NOV 01, 2023@11:11:28 AUTHOR: MICHA WRIGHT EXP COSIGNER: URGENCY: STATUS: COMPLETED S - here to review labs no acuities to speak of O - coop A&Ox3 NAD W-N/H/D EYES: anicteric OU NECK: no bruits nt tender and no adeno LUNGS: resp full reg unlabored; CTA b/l COR: RRR, no M ABD: no distention EXT: no LLE LABS: reviewed w/ pt A/P - 1) HTN - BP 134/90 - on Metoprol SUCC - HR 56 - on HCTZ 2) Hypercholesterolemia LDL 73 in NOVEMBER 13 - cont Lipitor; LFT's WNNL 3) Normoglycemic 4) CKD, Stage 3 eGFR 52 in NOVEMBER 13 - was 55 in MAY 13 - monitor - if eGFR approaches 40, then refer to Nephro 5) HIV - sees ID and is Medicated by Them 6) Biceps Tendon Strain, R Shldr - seeing Ortho RTC JUN 16 - labs before Medication Reconciliation: Outpatient: Has the patient been taking medications as documented in the EMLR? YES: The patient has been taking medications as documented in the EMLR. Essential Medication List for Review used to complete this medication reconciliation. INCLUDED IN THIS LIST: Alphabetical list of active outpatient prescriptions [facility] this [facility] (local) and dispensed from another OR or [facility] facility (remote) as well as [...] whether with a VA or non-VA provider. Sexual Orientation: The patient thinks of their sexual orientation as: Prefer not to answer /juan carlos/ MICHA WRIGHT PA-C STAFF PHYSICIAN ABSTRACT SEARCHER Signed: 11/01/2023 14:34 MICHA WRIGHT
--- OUTSIDE RECORDS SUMMARY | 2024-09-28 08:00 | XMS_ITS | Encounter Summary ---
Author Name [facility] [place] [facility] [place] Organization [facility] [place] Address [address] [place] [address] Care Team Providers Care Sr. Operations Manager Name Role Phone MICHA WRIGHT Primary Care Provider UnavailMACIE Hansen Primary Care Provider UnavailKELLY Alves Unavailable Unavailable CHARITY ROMAN Unavailable Unavaila MENDEZ Rocha Unavailable Unavailable JENNIFER CALDERÓN Unavailable Unavailable VENANCIO VERGARA Unavailable Unavailable MENDEZ BADILLO Primary Care Provider Unavail able Selected Encounter This section includes the information on record at [place] for the Encounter. Date/Time Encounter Type Encounter Description Reason Provider Source Jun 13, 2024 11:00 AM SELF CARE MNGMENT TRAINING PHYSICAL THERAPY ICD-10-CM M25.512 Pain in left shoulder HERMANN SOLIZ [facility] Encounter Template Text not used by [place] Assessments - Encounter Diagnoses This section includes the primary and secondary diagnoses documented for the Encounter. Date/Time Primary/Secondary Diagnosis Diagnosis Name Provider Source Jun 13, 2024 11:59 AM PRIMARY Pain in left shoulder HERMANN SOLIZ [place] Plan of Treatment: Future Appointments (+ 6 [...] 20 appointments. The data comes from all [facility]. Appointment Date/Time Appointment Type Appointme nt Facility Name Jun 26, 2024 09:30 AM AMBULATORY - REHAB MEDICIN E [place] Jul 02, 2024 02:00 PM AMBULATORY - MEDICINE [facility] [place] [facility] Jul 09, 2024 10:45 AM [place] [facility] [place] [facility] Aug 06, 2024 09:30 AM [facility] Nov 19, 2024 10:30 AM [facility] MED[facility]INE [facility] Dec 11, 2024 03:30 PM AMBULATORY - MEDICINE [facility] Active, Pending, and Scheduled Orders This section includes a listing of several types of active, pending, and scheduled orders, including clinic medications orders, diagnostic test orders, procedure orders and consult orders; where the start date of the order is 45 days before the date of the Encounter or 45 days after the date of theEncounter. The data comes from all [facility]. Test Date/Time Test Type Test Details Facility Name Jun 08, 2024 02:30 PM Consult Order COMMUNITY CARE-INFECTIOUS DISEASE Cons Mechanical Manager's Choice [place] Lab Results: +/- 30 days of the encounter This section includes the Chemistry and Hematology Lab Results on record with [place] for the patient. Radiology Reports and Pathology Reports are provided separately, in subsequent sections. Lab Results This section contains the Chemistry/Hematology Results that were resulted 30 days before or 30 daysafter the date of the Encounter. Date/Time Source Result Type Result - Unit Interpretation Reference Range Specimen Type Comment May 25, 2024 11:45 AM [place] CALCIUM SERUM Specimen Type: SERUM No comment entered. Ordering Provider: MICHA WRIGHT Report Released Date/Time: Nov 01, 2023 02:33 PM Reporting Lab: [address] [address] Performing Lab: [address] [address] CALCIUM 9.9 mg/dL 8.5-10.2 May 25, 2024 11:45 AM [place] VITAMIN D (25-OH) SERUM Specimen Type: SERUM No comment entered. Ordering Provider: MICHA WRGIHT Report Released Date/Time: Nov 01, 2023 02:33 PM Reporting Lab: [place] [facility] [place] [address] [address] Performing Lab: [facility] [address] VITAMIN D (25-OH) 32 ng/mL 20-50 May 25, 2024 11:45 AM [place] URIC ACID SERUM Sp ecimen Type: SERUM No comment entered. Ordering Provider: MICHA WRIGHT Report Released Date/Time: Nov 01, 2023 02:33 PM Reporting Lab: [facility] [address] [address] Performing Lab: [facility] [address] [address] URIC ACID 7.0 mg/dL 3.5-7.2 May 25, 2024 11:45 AM [place] PSA SERUM Sp ecimen Type: SERUM No comment entered. Ordering Provider: MICHA WRIGHT Report Released Date/Time: Nov 01, 2023 02:33 PM Reporting Lab: [facility] [address] [address] Performing Lab: [facility] [address] [address] PSA 0.71 ng/mL 0.00-4.00 May 25, 2024 11:45 AM [place] FERRITIN SERUM Sp ecimen Type: SERUM No comment entered. Ordering Provider: MICHA WRIGHT Report Released Date/Time: Nov 01, 2023 02:33 PM Reporting Lab: [facility] [address] [address] Performing Lab: [facility] [address] [address] FERRITIN 100 ng/mL 20-300 May 25, 2024 11:45 AM [place] RETICULOCYTES BLOOD Specimen Type: BLOOD No comment entered. Ordering Provider: MICHA WRIGHT Report Released Date/Time: Nov 01, 2023 02:33 PM Reporting [facility]: [facility] [address] [address] Performing Lab: [facility] [address] [address] RETIC % 2.2 H 0.6-2.0 RETIC, ABS 93.4 10*3/uL H 30.0-90.0 RET-HE 32.5 pg 27.9-42.0 May 25, 2024 11:45 AM [place] BASIC METABOLIC PANEL (fasting) SERUM Specimen Type: SERUM No comment entered. Ordering Provider: MICHA WRIGHT Report Released Date/Time: Nov 01, 2023 02:33 PM Reporting Lab: [address] [address] Performing Lab: [address] [address] UREA NITROGEN 13 mg/dL 7-25 GLUCOSE 93 mg/dL 65-100 SODIUM 138 mmol/L 135-145 POTASSIUM 4.4 mmol/L 3.5-5.0 CHLORIDE 102 mmol/L 100-110 CO2 27 meq/L 20-30 CREATININE, Serum 1.45 mg/dL H 0.50-1.40 eGFR(CKD-EPI 2020) 54 mL/min L >60 May 25, 2024 11:45 AM [place] LIPID PANEL FASTING SERUM Specimen Ty pe: SERUM No comment entered. Ordering Provider: MICHA WRIGHT Report Released Date/Time: Nov 01, 2023 02:33 PM Reporting Lab: [address] [address] Performing Lab: [address] [address] CHOLESTEROL 176 mg/dL TRIGLYCERIDE 59 mg/dL 0-150 LDL calculated 107 mg/dL 0-129 CHOL/HDL 3.1 HDL CHOLESTEROL 57 mg/dL 40-60 May 25, 2024 11:45 AM [place] LIVER FUNCTION SERUM Specimen Type: SERUM No comment entered. Ordering Provider: MICHA WRIGHT Report Released Date/Time: Nov 01, 2023 02:33 PM Reporting Lab: [address] [address] Performing Lab: [address] [address] PROTEIN,TOTAL 6.7 g/dL 6.0-8.3 ALBUMIN 3.9 g/dL 3.5-5.0 ALKALINE PHOSPHATASE 82 U/L 40-150 AST 27 U/L 5-34 ALT 22 U/L BILIRUBIN, TOTAL 0.9 mg/dL 0.2-1.2 May 25, 2024 11:45 AM [place] HEMOGLOBIN A1C PANEL BLOOD Specimen T ype: [...] Nov 01, 2023 02:33 PM Reporting Lab: [address] [address] Performing Lab: [address] [address] HEMOGLOBIN A1C 4.0 4.0-5.6 May 25, 2024 11:45 AM [place] TSH SERUM Sp ecimen Type: SERUM No comment entered. Ordering Provider: MICHA WRIGHT Report Released Date/Time: Nov 01, 2023 02:33 PM Reporting Lab: [address] [address] Performing Lab: [address] [address] TSH 1.16 u[IU]/mL 0.35-5.00 May 25, 2024 11:45 AM [place] CBC AND DIFF (AUTO) BLOOD Specimen Ty pe: BLOOD No comment entered. Ordering Provider: MICHA WRIGHT Report Released Date/Time: Nov 01, 2023 02:33 PM Reporting Lab: [address] [address] Performing Lab: [address] [address] WBC 3.82 10*3/uL L 4.50-11.00 RBC 4.17 [...] 0.0 0.0-0.0 NRBC, ABS 0.00 10*3/uL 0.00-0.00 Social History: Smoking Status (Most current) and Tobacco Use (All prior to encounter date) This section includes the most current, and the historical, smoking and tobacco- related health factors from the [place] facility where the Encounter took place. Current Smoking Status This section includes the most current smoking, or tobacco-related health factor, from the [place] facility where the Encounter took place. Date/Time Current Smoking Status Comment Jenny alexander May 28, 2024 10:30 AM [place]-TOBACCO NEVER USED CIGARETTES [place] Tobacco Use History This section includes a history of the smoking, or tobacco-related health factors, that were collected on or before the date of the Encounter. The data comes from the [place] facility where the Encounter took place. Date/Time Smoking Status/Tobacco Use Comment Dona de la vega May 28, 2024 10:30 AM [place]-TOBACCO NEVER USED OTHER TYPE [place] Advance Directives: All historical and current Section Date Range: From patient's date of to the date document was created. This section includes ALL of a patient's completed or amended [place] Advance and Rescinded Directives. The entries below indicate that a directive exists for the patient, but an actual copy is not included with this document. The data comes from all [place] facilities. Date Advance Directives Provider Source Jan 05, 2022 ADVANCE DIRECTIVE MELISSA CLINE [facility] Feb 21, 2018 ADVANCE DIRECTIVE MINESH HERBERT [facility] Encounter Notes: All associated encounter notes This section contains the clinical notes associated to the Encounter. Date/Time Encounter Note(s) Provider Source Jun 13, 2024 10:40 AM PHYSICAL THERAPY C ONSULT: LOCAL TITLE: PHYSICAL THERAPY CONSULT STANDARD TITLE: PHYSICAL THERAPY CONSULT DATE OF NOTE: JUN 13, 2024@10:40 ENTRY DATE: JUN 13, 2024@10:40:29 AUTHOR: HERMANN SOLIZ COSIGNER: URGENCY: STATUS: COMPLETED Initial Evaluation date: 06/13/23 Progress Note Date: 07/14/23 Treatment #: eval Treatment time: 40 Diagnosis: Pain in left Shoulder(ICD-10-CM M25.512) Provider: MICHA WRIGHT PT Treatment Precautions: HIV+, hx HTN controlled with meds Patient identified by full name and date of SUBJECTIVE: History of Current injury: Patient states onset of L shoulder pain about 2 months ago with no specific PRASAD. Does note a hx of L shoulder pain/injury about 2 years ago trying to lift the gait of a UHAUL. Patient states the pain is sharp in nature and but has difficulty discerning exactly where they feel it (does point to posterolateral shoulder). Patient states they tend to notice their pain more with activity, not as bad at rest. Patient denies referred symptoms past the elbow, denies sensory changes in their L arm, denies overt weakness in their L hand. Patient states primary aggravating factors include pulling their arm across their body, and some upward movements, lifting heavier objects, lifting overhead, rotating the shoulder inward. Patient states primary alleviating factors include rest. Patient denies other major trauma to the neck or L shoulder. Pain current 0/10 Pain worst 10/10 (quick sharp pain that dissipates quickly( Pain best 0/10 Current exercise routine: N/A due to shoulder pain, some walking on treadmill Work: administrative assistant front desk at hotel Patient Goal: get better, lessen the pain Number of days per week with pain: 11/26 SANE report Please rate your ability to use your injured area on a 0% to 100% scale, with 0% being unable to use the injured area and 100% being normal use of injured area in your daily activity: OBJECTIVE: Red flags: Recent Trauma- Age (50+)+ Hx of Cancer- Fever/chills/night sweats- Unexplained weight loss- Recent infection- Immunosuppression - Night pain- Saddle anesthesia- Bowel/bladder dysfunction - LE neurological deficit- Psychosocial flags: mental health dx- entrenched/unhelpful beliefs about pain- clinically relevant catastrophization- signs of kinesiophobia- Imaging findings: Posture: Neuro: UE Neuro Screen: (R) (L) Reflexes: (0, 1, 2, 3, 4) C7 Triceps 2 2 C6 BR 2 2 C5 Biceps 2 2 Myotomes: See MMT Dermatomes: (N=Normal, I=Impaired) C5 Radial N N C6 Thumb N N C7 Middle N N C8 Pinkie N N T1 Ulnar N N Tinels Sign: (+,-) Cubital fossa - - Gyons canal - - Carpal tunnel - - ULTT+ (+,-) Median nerve - - Ulnar nerve - - Radial nerve - - According to Miller et al,[18] selected combinations of the following clinical findings are effective in ruling out and ruling in cervical spine myelopathy. Combinations of three of five or four of five of these tests enable post-test probability of the condition to 9499%: NEGATIVE 1. Gait deviation 2. Hoffmanns test 3. Inverted supinator sign 4. Babinski sign 5. Age 45 years or older * = pain during testing Cervical ROM: WNL and pain free Shoulder ROM: R L Flexion(170-180): 170* Abduction(170-180): 170* Scaption(170-180): 170* Extension(50-60): Internal Rot(Behind back): L1 External Rot(60-90): 80 Shoulder Strength:(_/5) Right Left Flexion: 5 Abduction: 4* Scaption: 5 Extension: Internal Rot: 5 External Rot arm by side: 4+* External Rot 90deg flexon: 4* Elbow flexion 5 Elbow extension 5 Wrist flexion 5 Wrist extension 5 Thumb extension 5 Finger abduction 5 Finger adduction 5 Rhomboids Mid trap Low trap Cervical Special Tests Right Left Spurlings compression (-) (-) (Sn .50 Sp .90) Distraction (-) (-) (Sn .44 Sp .90) Sharps-Ryan (-) (-) (Sn .69 Sp .96) Alar ligament test (-) (-) Clinical prediction rule (-) (-) 3 positive signs = Sn .39 Sp .94 for radiculopathy Less 60 deg cervical rotation to involved side Positive ULTT A Positive distraction Positive Spurlings test Shoulder Special Tests: Right Left Hawking's Louie (-) (-) Neer (-) (-) Empty can (-) (+) Lateral Harvey (-) (-) Passive distraction (SLAP) (-) (-) Passive compression (SLAP) (-) (-) Modified dynamic labral shear (-) (-) Apprehension/Relocation (bankart) (-) (-) Palpation: Joint mobility: Interventions: Therapeutic Exercise: Mins: 10 - Standing Shoulder Row with Anchored Resistance 10 reps blue - Shoulder extension with resistance - Neutral 10reps blue - Shoulder External Rotation with Anchored Resistance 10reps yellow - Sidelying Shoulder ER with Towel and Dumbbell 10reps 1lb - Prone Scapular Retraction 10reps - Standing Shoulder Abduction Reactive Isometrics with Elbow Extended 10 reps red Manual therapy: Mins: Neuro re-ed: Mins: Other: Mins: Modalities: Mins: [] contraindication screen completed prior to modality [] skin intact pre/post modality Access Code: [email or web address] URL: [email or web address] Date: 06/13/2024 Prepared by: Hermann Soliz Exercises - Standing [...] Education - Shoulder Impingement PATIENT EDUCATION: Mins: 10 Discussed potential etiology of symptoms with patient including potential structures involved and how this relates to exercises prescribed and POC discussing frequency and duration of services to be provided with patient verbalizing good understanding and agreement with POC. Provided written HEP to patient with therex from today reviewing proper form sets reps and frequency and safety precautions with patient verbalizing and demonstrating good understanding in clinic. Discussed the anatomy of the shoulder andthe biomechanics of the shoulder joint, role of the rotator cuff. Discsused typicaly presentation with shoulder impingement and best practice for treatment. ASSESSMENT: Patient is a 64yo seen for physical therapy evaluation following referral for Pain in left Shoulder(ICD-10-CM M25.512). PMH significant for hx stroke, dysplasia of anus, HIV+, HTN, CKD3, osteoporosism, HLD. Patient presents with primary complaint of acute L shoulder pain onset 2 months ago with no specific PRASAD. Patient denies referred symptoms into the LUE, endorses isolated L shoulder pain. UE relfexes normal 2+, - dey. Pain rated 0/10 at current and at best, 7/10 at worst on NPRS. Primary aggravating factors include pulling their arm across their body, and some upward movements, lifting heavier objects, lifting overhead, rotating the shoulder inward. On physical assessment, patient primary symptoms reproduced with overhead elevation of the L shoulder most notable with abduction with pain noted in the first 30deg of motion, L shoulder ABD and ER MMT, empty can. Additional impairments that may contribute to condition include impaired rotator cuff and periscapular strength. Based on patient hx and findings of assessment, patient would likely benefit from progressive strengthening exercises focusing on the rotator cuff and the periscapular muscualture; slower progression will be needed for supraspinatus exericses as this msucle was quite irritable during appt today. Patient reports these symptoms impact their ability to complete their normal daily tasks like pulling their arm across their body, and some upward movements, lifting heavier objects, lifting overhead, rotating the shoulder inward. Patient requires skilled physical therapy services in order to address these impairments ad activity limitations and to achieve patient goal of get better, lessen the pain . GOALS: in 4-6weeks, patient will demonstrate: consistent carryover of HEP 5/7 days per week with patient able to independently teach back 75% of exercises 2pt decrease in pain level at worst to improve patient ability to complete most symptomatic tasks decrease in total days with pain by 2 days to improve patient QOL pain free L shoulder ROM 1/2 grade improvement in L shoulder ABD MMT 1/2 grade improvement in L shoulder ER MMT - empty can PLAN: Discussed POC with patient who verbalizes agreement with skilled PT services focusing on progressive rotator cuff, seratus, periscapular strengthening, improving UE flexibility, HEP teaching and progression visits biweekly for 6 weeks [x]Low impact cardio: [x]Nustep []Recumbent bike []Recumbent elliptical []TM []Manual: []STM/DTM []METs/SCS []IASTM []Joint mobilizations [x]Therex: [x]Progressive UQ [x]Progressive Core []Progressive LQ [x]UQ flex [] Lumbar flex []LQ flex [x]Foam rolling []Proprioception []Neuro Re-education: []Static []Dynamic []Dual-Task [x]Education: [x]Posture []Ergonomics [x]Bodymechanics [x]Self-care strategies []PNE []Modalities(PRN): []Heat/Ice []Estim/Tens []Mechanical traction []K-tape [] Biofreeze /es/ HERMANN SOLIZ PT, DPT PHYSICAL THERAPIST Signed: 06/13/2024 11:59 HERMANN SOLIZ [place]
--- OUTSIDE RECORDS SUMMARY | 2024-09-28 08:00 | XMS_ITS ---
Author Organization [facility] Address [address] [place] [address] Care Team Providers Care Family Centered Specialist Name Role Phone Hitesh Hopper Primary Care Provider Gregg Mckenzie Jr Allergies Allergen (clinical drug ingredient) Drug/Non Drug Allergy documented on EMR Reaction Allergy Type Onset Date Status lisinopril Lisinopril Unknown Drug Allergy Activ e REASON FOR VISIT Patient presents today for a SCREENING COLON AND LOWER ESOPHAGEAL SPHINCTER DISORDER Medications Medication SIG (Take, Route, Frequency, Duration) Notes Start Date End Date Status Atorvastatin Calcium 40 MG 1 tablet Oral ly Once a day for 30 day(s) 09/03/2024 Active Vitamin B 12 100 MCG as directed Orally 09/03/2024 Active Vitamin D3 2400 UNIT/ML as directed 09/03/2024 Active Alendronate Sodium 10 MG 1 tablet 30 min utes before the first food, beverage or medicine of the day with plain water Orally Once a day for 30 day(s) 09/03/2024 Active Aspirin 81 81 MG 1 tablet Orally Once a day for 30 day(s) 09/03/2024 Active hydroCHLOROthiazide 25 MG 1 tablet in th e morning Orally Once a day for 30 day(s) 09/03/2024 Active Metoprolol Succinate 25 MG 1 capsule Ora lly Once a day for 30 day(s) 09/03/2024 Active Juluca 50-25 MG 1 tablet with a meal Orally Once a day for 30 day(s) 09/03/2024 Active Social History Tobacco Use: Social History Observation Description Date Details (start date - stop date) Never Smoker NA - NA Tobacco Control (Standard) Question Answer Notes Tobacco use: Nonsmoker AUDIT-C (Standard) Question Answer Notes Did you have a drink containing alcohol in the p ast year? No Points 0 Interpretation Negative Problems No Known Problems Vital Signs Temperature 97.7 degrees Fahrenheit 09/04/19 25 Blood pressure systolic 001 mm Hg 09/04/19 25 Blood pressure diastolic 01 mm Hg 025 Height 67 in 09/03/2024 Weight 160 lbs 09/03/2024 BMI 25.06 kg/m2 09/03/2024 Encounters Encounter Location Date Provider Diagnosis [facility] [address] [place] [address] 09/03/2024 Gregg Henry Jr Epigastric pain R10.13 and Colon cancer screening Z12.11 Assessments Encounter Date Diagnosis (ICD Code) Assessment Notes Treatment Notes Treatment Clinical Notes Section Notes 09/03/2024 Epigastric pain (ICD-10 - R10.13) We [...] Follow-up will be pending these results. 09/03/2024 Colon cancer screening (ICD-10 - Z12.11) [...] be pending these results. Plan Of Treatment Treatment Notes Assessment Notes Colon cancer screening Endoscopy materia l was printed Future Test Test Name Order Date UPPER GI ENDOSCOPY 09/03/2024 COLONOSCOPY 09/03/2024 Next Appt Details Follow Up: prn, Reason: Provider Name:Gregg manley Jr, 10/23/2024 10:00:00 AM, [address] [facility] , [place], [place], [id number], Progress Notes * DAYSI NOEL ADOB:1960 (64 yo M)Acc No.[id number]:09/03/2024 Progress Notes Patient:DAYSI OROURKE Provider:?Gregg Henry MD :1960???Age:64 Y???Sex:Male Jez e:09/03/2024 Address:[address] [place] [address] Pcp:Hitesh Hopper Subjective: * Chief Complaints: * ???1. Patient presents today for a SCREENING COLON AND LOWER ESOPHAGEAL SPHINCTER DISORDER. * HPI: ???New symptom(s):? Mr. Noel is a pleasant 64-year-old man seen today in consultation. He has a personal history of colon polyps and last underwent colonoscopy in 2019. 5-year follow-up was recommended. He has no complaints of rectal bleeding or change in his bowel habits. He also has a history of anal condyloma/dysplasia for which he is evaluated and treated through general surgery. There is a family history of colon polyps in his father. He complains of symptoms of gas and irritation in the upper abdomen. He denies heartburn. He has been treated in the past for H. pylori. He has had no recent upper endoscopy. * ROS:?General/Constitutional:?Change in appetite?denies.?Fatigue?denies.?ENT:?Patient denies?difficulty swallowing.?Respiratory:?Patient denies?shortness of breath.?Cardiovascular:?Patient denies?chest pain.?Gastrointestinal:?Comments?See HPI for details.?Genitourinary:?Difficulty urinating?denies.?Incontinence?denies.?Musculoskeletal:?Patient denies?muscle aches.?Skin:?Patient denies?pruritis.?Neurologic:?Patient denies?low back pain.?Psychiatric:?Patient denies?mental or physical abuse.? * Medical History:?CVA, Right eye visual field defect, Hypertension, HIV infection, Osteoporosis, Chronic kidney disease stage III, Colonoscopy 2020, history of colon polyps, 5-year follow-up. * Surgical History:?testicular torsion . * Family History:?Father: davon candelaria, diagnosed with Colon polyps.?Mother: .?Paternal aunt: , diagnosed with Colon cancer.? No family history of liver cancer. * Social History:?Tobacco Use:?Tobacco Control (Standard)?Tobacco use:?Nonsmoker.?Miscellaneous:?Marital status: single. ???Drug/Alcohol:?AUDIT-C (Standard)?Did you have a drink containing alcohol in the past year??No,?Points?0,?Interpretation?Negative.? * Medications:?Taking Juluca 5 0-25 MG Tablet 1 tablet with a meal Orally Once a day , Taking hydroCHLOROthiazide 25 MG Tablet 1 tablet in the morning Orally Once a day , Taking Metoprolol Succinate 25 MG Capsule ER 24 Hour Sprinkle 1 capsule Orally Once a day , Taking Atorvastatin Calcium 40 MG Tablet 1 tablet Orally Once a day , Taking Vitamin B 12 100 MCG Lozenge as directed Orally , Taking Vitamin D3 2400 UNIT/ML Liquid as directed , Taking Alendronate Sodium 10 MG Tablet 1 tablet 30 minutes before the first food, beverage or medicine of the day with plain water Orally Once a day , Taking Aspirin 81 81 MG Tablet Delayed Release 1 tablet Orally Once a day , Medication List reviewed and reconciled with the patient * Allergies:?Lisinopril. Objective: * Vitals:?Wt:160lbs, Ht: 67 in , BMI:25.06Index, BP:001/01mm Hg, Temp:97.7, Ht-cm: 170.18, Wt-k.58. * Examination: ???General Examination: ?GENERAL APPEARANCE:?in no acute distress.?HEAD:?normocephalic.?EYES:?sclera non-icteric.?ORAL CAVITY:?mucosa moist.?NECK/THYROID:?no lymphadenopathy.?SKIN:?anicteric.?HEART:?S1, S2 normal, no murmurs.?LUNGS:?clear to auscultation bilaterally.?CHEST:?normal shape and expansion.?ABDOMEN:?soft, nontender, nondistended, bowel sounds present, no organomegaly .?EXTREMITIES:?no clubbing, cyanosis, or edema.?PSYCH:?cognitive function intact.? Assessment: * Assessment: 1.?Epigastric pain - R10.13 (Primary)???2.?Colon cancer screening - Z12.11??? We recommended further evalu ation of his epigastric pain today. We discussed differential diagnosis for causes. Upper endoscopy will be arranged. For gas symptoms, he can use OTC anti-gas agents as needed. He is due for follow-up colonoscopy as well. He is advised to stop aspirin 1 week before the procedure and HCTZ the day before the procedure. Follow-up will be pending these results. Plan: * Treatment: ?Procedure: COLONOSCOPY (Ordered for 09/03/2024)* sched for 10/23/24 at 10:00 am macmiralax 2.?Colon cancer screening?Procedure: UPPER GI ENDOSCOPY (Ordered for 09/03/2024)* sched for 10/23/24 at 10:00 am mac ?Procedure: COLONOSCOPY (Ordered for 09/03/2024)* sched for 10/23/24 at 10:00 am macmiralax Notes: Endoscopy material was printed?? * Procedure Codes:?3017F COLOR ECTAL CA SCREEN DOC REV, G9903 Pt scrn tbco id as non user, G9744 PATIENT NOT ELIG D/T ACTIVE DX HTN * Preventive Medicine:? ??Counseling:?Care goal follow-up plan:?Above Normal BMI Follow-up?Dietary management education, guidance, and counseling,?BMI management provided?Yes.? * Follow Up:?prn * * Sign off status: Completed true * Provider:?Gregg Henry MD Date:?0 09/03/2024 Generated for [place]/Rakel/Delores on:?09/28/2024 07:59 AM EDT History and Physical Notes * HPI (History of Present Illness) Category Sub-Category Detail Notes Category Not es New symptom(s) Mr. Noel is a pleasant 64-year-old man seen today in consultation. He has a personal history of colon polyps and last underwent colonoscopy in 2019. 5-year follow-up was recommended. He has no complaints of rectal bleeding or change in his bowel habits. He also has a history of anal condyloma/dysplasia for which he is evaluated and treated through general surgery. There is a family history of colon polyps in his father. He complains of symptoms of gas and irritation in the upper abdomen. He denies heartburn. He has been treated in the past for H. pylori. He has had no recent upper endoscopy. Examination Category Sub-Category Detail Notes Category Not es General Examination GENERAL APPEARANCE: in no acute di stress HEAD: normocephalic EYES: sclera non-icteric NECK/THYROID: no lymphadenopathy HEART: S1, S2 normal, no mu rmurs CHEST: normal shape and exp ansion LUNGS: clear to auscultatio n bilaterally ABDOMEN: soft, nontender, non distended, bowel sounds present, no organomegaly SKIN: anicteric EXTREMITIES: no clubbing, cyanosi s, or edema PSYCH: cognitive function i ntact ORAL CAVITY: mucosa moist
--- OUTSIDE RECORDS SUMMARY | 2024-09-28 08:00 | XMS_ITS | Encounter Summary ---
Author Name [facility] Organization [facility] Address [address] [place] [address] Care Team Providers Care Correctional Counselor Name Role Phone ADRIANA MICHA Primary Care Provider UnavailMENDEZ Rees Primary Care Provider Unavail able MACIE NARANJO Primary Care Provider Unavailanastasiia e ABRAHAM, KELLY Unavailable Unavailable JESSIE, CHARITY Unavailable Unavaila MENDEZ Rocha Unavailable Unavailable JENNIFER CALDERÓN Unavailable Unavailable JAI, VENANCIO Unavailable Unavailable Selected Encounter This section includes the information on record at [place] for the Encounter. Date/Time Encounter Type Encounter Description Reason Provider Source Jun 26, 2024 09:30 AM THERAPEUTIC EXERCISES PHYSICAL THERAPY ICD-10-CM M25.512 Pain in left shoulder HERMANN SOLIZ [facility] Encounter Template Text not used by [place] Assessments - Encounter Diagnoses This section includes the primary and secondary diagnoses documented for the Encounter. Date/Time Primary/Secondary Diagnosis Diagnosis Name Provider Source Jun 26, 2024 10:02 AM PRIMARY Pain in left shoulder HERMANN SOLIZ KESHAV Plan of Treatment: Future Appointments (+ 6 [...] 20 appointments. The data comes from all [facility]. Appointment Date/Time Appointment Type Appointme nt Facility Name Jul 02, 2024 02:00 PM [facility]ULATORY - [facility] Jul 09, 2024 10:45 AM [facility] Aug 06, 2024 09:30 AM AMBULATORY - RE[facility] MEDIC[facility] [place] Nov 19, 2024 10:30 AM AMBULATORY - MEDICINE [facility] Dec 11, 2024 03:30 PM AMBULATORY - MEDICINE [facility] Active, Pending, and Scheduled Orders This section includes a listing of several types of active, pending, and scheduled orders, including clinic medications orders, diagnostic test orders, procedure orders and consult orders; where the start date of the order is 45 days before the date of the Encounter or 45 days after the date of theEncounter. The data comes from all [facility]. Test Date/Time Test Type Test Details Facility Name Jun 08, 2024 02:30 PM Consult Order COMMUNITY CARE-INFECTIOUS DISEASE Cons [facility] [place] Social History: Smoking Status (Most current) and Tobacco Use (All prior to encounter date) This section includes the most current, and the historical, smoking and tobacco- related health factors from the [place] facility where the Encounter took place. Current Smoking Status This section includes the most current smoking, or tobacco-related health factor, from the [place] facility where the Encounter took place. Date/Time Current Smoking Status Comment Jenny ity May 28, 2024 10:30 AM [place]-TOBACCO NEVER USED CIGARETTES [place] Tobacco Use History This section includes a history of the smoking, or tobacco-related health factors, that were collected on or before the date of the Encounter. The data comes from the [place] facility where the Encounter took place. Date/Time Smoking Status/Tobacco Use Comment F acility May 28, 2024 10:30 AM [place]-TOBACCO NEVER USED OTHER TYPE [place] Advance Directives: All historical and current Section Date Range: From patient's date of to the date document was created. This section includes ALL of a patient's completed or amended [place] Advance and Rescinded Directives. The entries below indicate that a directive exists for the patient, but an actual copy is not included with this document. The data comes from all [place] facilities. Date Advance Directives Provider Source Jan 05, 2022 ADVANCE DIRECTIVE MELISSA CLINE [facility] Feb 21, 2018 ADVANCE DIRECTIVE PIEDADMINESH Nicole SAVANNA [facility] Encounter Notes: All associated encounter notes This section contains the clinical notes associated to the Encounter. Date/Time Encounter Note(s) Provider Source Jun 26, 2024 09:34 AM PHYSICAL THERAPY N OTE: LOCAL TITLE: PHYSICAL THERAPY STANDARD TITLE: PHYSICAL THERAPY NOTE DATE OF NOTE: JUN 26, 2024@09:34 ENTRY DATE: JUN 26, 2024@09:34:24 AUTHOR: HERMANN SOLIZ EXP COSIGNER: URGENCY: STATUS: COMPLETED Initial Evaluation date: 06/13/23 Progress Note Date: 07/14/23 Treatment #: 1 Treatment time: 30 Diagnosis: Pain in left Shoulder(ICD-10-CM M25.512) Provider: MICHA WRIGHT PT Treatment Precautions: HIV+, hx HTN controlled with meds Patient identified by full name and date of SUBJECTIVE: patient states their HEP exercises are going well. Notes quite a bit of msucle fatigue with the sidelying ER exercise. OBJECTIVE: Therapeutic Exercise: Mins: 26 UBE 5mins band row 15 black band band shoulder extension 15 black band band shoulder ABD reactive iso 15 green band band shoulder ER 15 red band sidelying shoulder flexion arm on ball 15 reps sidelying shoulder ER 15reps 2lbs towel slides flexion 15reps serratus punches 2x20 5lbs Manual therapy: Mins: Neuro re-ed: Mins: Other: Mins: Modalities: Mins: [] contraindication screen completed prior to modality [] skin intact pre/post modality Access Code: [email or web address] URL: [email or web address] Date: 06/26/2024 Prepared by: Hermann Soliz Exercises [...] ASSESSMENT: Patient seen for routine follow up. provided insturction through progressions in resistance for previously prescribed HEp exercises as well as a few new ROM and strengthening exercises with good tolerance from patient. Trialed sidelying abduction once again but patient unable to complete because of pain. Provide dupdated written HEP for carryover reviewing with patient. [...] HERMANN SOLIZ PT, DPT PHYSICAL THERAPIST Signed: 06/26/2024 10:02 HERMANN SOLIZ [place]
--- OUTSIDE RECORDS SUMMARY | 2024-09-28 08:00 | XMS_ITS | Clinical Summary ---
Author Organization [facility] Address [address] [place] [address] Care Team Providers Care Cloth Napping Supervisor Name Role Phone Unavailable Primary Care Provider [...] - Risk 60-74 years 1-dose series) 2021 COVID-19 Vaccine (6 - 2023- season) 2024 05/25/2022, 10/05/2021, 04/20/2021, Additional history exists Dental Oral Exam 06/03/2024 12/01/2023 Tobacco Screening 11/30/2024 12/01/2023 Dental X-Ray: Bitewings 12/01/2024 12/01/2023 DTaP/Tdap/Td Vaccines (6 - Td or Tdap) 05/23/2025 05/23/2015, 05/23/2015, 05/23/2015, Additional history exists Dental X-Ray: Full Mouth 12/01/2026 12/01/2023 Meningococcal Vaccine (3 - Risk 2-dose series) 03/13/2027 03/13/2022, 03/13/2020, 12/20/2019 Pneumococcal Vaccine: 50+ Years (4 of 4 - PCV20 or PCV21) 05/28/2029 05/28/2024, 01/31/2018, 07/24/2013 Zoster Vaccines Completed 10/27/2017, 06/30/2017 Influenza Vaccine Completed 04/24/2024, , 02/29/2020, Additional history exists HIB Vaccines Aged Out No longer eligi [...] Procedure Name Priority Date/Time Associated Diagnosis Comments INTRAORAL - COMPLETE SERIES OF RADIOGRAPHIC IMAGES Routine 12/01/2023 10:00 AM EDT COMPREHENSIVE ORAL EVALUATION - NEW OR ESTABLISHED PATIENT Routine 12/01/2023 10:00 AM EDT from Last 3 Months or Most Recently Relevant to Health Maintenance
--- OUTSIDE RECORDS SUMMARY | 2024-09-28 08:00 | XMS_ITS | Encounter Summary ---
Author Name [facility] [facility] [place] [facility] [place] [facility] [place] Address [address] [place] [address] Care Team Providers Care Hand Splitter Name Role Phone MICHA WRIGHT Primary Care Provider UnavailMACIE Hansen Primary Care Provider UnavailKELLY Alves Unavailable Unavailable CHARITY ROMAN Unavailable Unavaila MENDEZ Rocha Unavailable Unavailable JENNIFER CALDERÓN Unavailable Unavailable VENANCIO VERGARA Unavailable Unavailable MENDEZ BADILLO Primary Care Provider Unavail able Selected Encounter This section includes the information on record at [place] for the Encounter. Date/Time Encounter Type Encounter Description Reason Provider Source Apr 24, 2024 10:00 AM OFFICE O/P EST HI 40 MIN PRIMARY CARE/MEDICINE ICD-10-CM K30 Functional dyspepsia MICHA WRIGHT Evin Encounter Template Text not used by [place] Assessments - Encounter Diagnoses This section includes the primary and secondary diagnoses documented for the Encounter. Date/Time Primary/Secondary Diagnosis Diagnosis Name Provider Source Apr 24, 2024 10:41 AM PRIMARY Functional dyspepsia MICHA WRIGHT Apr 24, 2024 10:41 AM SECONDARY Encounter for immunization TANYA VILLAFANA MERCED Apr 24, 2024 10:41 AM SECONDARY Encounter for screening for malignant neoplasm of colon MICHA WRIGHT Apr 24, 2024 10:41 AM SECONDARY Palpitations MICHA WRIGHT MERCED Plan of Treatment: Future Appointments (+ 6 months) and Future Tests (+/- 45 days) The Plan of Treatment section includes future care activities for the patient [facility] [place] [facility] This section includes future appointments and future orders which are active, pending or scheduled. Future Appointments This section includes appointments that were scheduled to occur 6 months from the date of the Encounter, up to a maximum of 20 appointments. The data comes from all [facility]. Appointment Date/Time Appointment Type Appointme nt Facility Name May 04, 2024 09:45 AM AMBULATORY - MEDICINE [facility] May 28, 2024 10:30 AM AMBULATORY - MEDICINE [facility] Jun 13, 2024 11:00 AM [facility] Jun 26, 2024 09:30 [facility] Jul 02, 2024 02:00 PM AMBULATORY - MEDICINE [facility] Jul 09, 2024 10:45 AM AMBULATORY MEDICINE [facility] Aug 06, 2024 09:30 AM AMBULATORY - REHAB [facility] Active, Pending, and Scheduled Orders This section includes a listing of several types of active, pending, and scheduled orders, including clinic medications orders, diagnostic test orders, procedure orders and consult orders; where the start date of the order is 45 days before the date of the Encounter or 45 days after the date of the Encounter. The data comes from all [facility]. Test Date/Time Test Type Test Details Facility Name Apr 24, 2024 10:33 AM Consult Order COMMUNITY CARE-GI GENERAL [facility] Jun 08, 2024 02:30 PM Consult Order COMMUNITY CARE-INFECTIOUS DISEASE [facility] Lab Results: +/- 30 days of the encounter This section includes the Chemistry and Hematology Lab Results on record with [place] for the patient. Radiology Reports and Pathology Reports are provided separately, in subsequent sections. Lab Results This section contains the Chemistry/Hematology Results that were resulted 30 days before or 30 daysafter the date of the Encounter. Date/Time Source Result Type Result - Unit Interpretation Reference Range Specimen Type Comment Apr 24, 2024 10:59 AM [facility] CELIAC DISEASE ANTIBODIES W/ REFLEX SERUM Specimen Type: SERUM Comment: Results of serological testing should be considered in conjunction with other laboratory and clinical findings for the diagnosis of Celiac Disease and/or Dermatitis Herpetiformis. Falsely positive and falsely negative results can be seen depending upon patient's underlying medical conditions and/or diet. Ordering Provider: MICHA WRIGHT Report Released Date/Time: Apr 24, 2024 09:55 AM Reporting Lab: [facility] [address] [facility] [address] Performing Lab: [facility] [address] [facility] [address] TTG IgA Negative Negative Apr 24, 2024 10:59 AM [facility] H PYLORI ANTIBODY SERUM Specimen Type: SERUM No comment entered. Ordering Provider: MICHA WRIGHT Report Released Date/Time: Apr 24, 2024 09:55 AM Reporting Lab: [facility] [address] [facility] [address] Performing Lab: [facility] [address] [facility] [address] H PYLORI IgG POSITIVE HH NEGATIVE Apr 24, 2024 10:59 AM [facility] VITAMIN B12 SERUM Specimen Type: SERUM No comment entered. Ordering Provider: MICHA WRIGHT Report Released Date/Time: Apr 24, 2024 09:55 AM Reporting Lab: [facility] [address] [facility] [address] Performing Lab: [address] [address] VITAMIN B12 >2000 pg/mL H 200-900 Apr 24, 2024 10:59 AM [facility] CBC AND DIFF (AUTO) BLOOD Specimen Ty pe: BLOOD No comment entered. Ordering Provider: MICHA WRIGHT Report Released Date/Time: Apr 24, 2024 10:00 AM Reporting Lab: [facility] [address] [facility] [address] Performing Lab: [address] [address] WBC 3.28 10*3/uL L 4.50-11.00 RBC 4.03 10*6/uL L 4.23-5.66 HGB 11.8 g/dL L 12.8-17 HCT 36.7 L 39.2-50.4 MCV 91.1 fL 82-99 MCHC 32.2 g/dL 30.8-35.1 PLT 189 10*3/uL 140-360 RDW-CV 15.0 12.0-16.0 MONO, ABS 0.27 10*3/uL L 0.30-1.10 MCH 29.3 pg 26.2-32.6 NEUT % 52.7 43.7-75.8 LYMPH % 34.5 14.0-42.3 MONO % 8.2 5.1-13.7 EOS % 3.4 0.4-6.8 BASO % 1.2 0.1-2.0 NEUT, ABS 1.73 10*3/uL L 2.20-7.60 LYMPH, ABS 1.13 10*3/uL 1.00-3.20 EOS, ABS 0.11 10*3/uL 0.03-0.44 BASO, ABS 0.04 10*3/uL 0.01-0.13 IMMATURE GRAN % 0.0 0.0-0.7 IMMATURE GRAN, ABS 0.00 10*3/uL 0.00-0.0 6 NRBC % 0.0 0.0-0.0 NRBC, ABS 0.00 10*3/uL 0.00-0.00 Apr 24, 2024 10:59 AM [facility] TSH SERUM Sp ecimen Type: SERUM No comment entered. Ordering Provider: MICHA WRIGHT Report Released Date/Time: Apr 24, 2024 10:00 AM Reporting Lab: [address] [address] Performing Lab: [address] [address] TSH 1.17 u[IU]/mL 0.35-5.00 Apr 24, 2024 10:59 AM [facility] URIC ACID SERUM Sp ecimen Type: SERUM No comment entered. Ordering Provider: MICHA WRIGHT Report Released Date/Time: Apr 24, 2024 10:00 AM Reporting Lab: [address] [address] Performing Lab: [facility] [address] URIC ACID 7.5 mg/dL H 3.5-7.2 Apr 24, 2024 10:59 AM [facility] FERRITIN SERUM Sp ecimen Type: SERUM No comment entered. Ordering Provider: MICHA WRIGHT Report Released Date/Time: Apr 24, 2024 10:00 AM Reporting [facility] [address] [address] Performing [facility] [address] [address] FERRITIN 170 ng/mL 20-300 Apr 24, 2024 10:59 AM [facility] PSA SERUM Sp ecimen Type: SERUM No comment entered. Ordering Provider: MICHA WRIGHT Report Released Date/Time: Apr 24, 2024 10:00 AM Reporting [facility] [address] [address] Performing [facility] [address] [address] PSA 0.55 ng/mL 0.00-4.00 Apr 24, 2024 10:59 AM [facility] RETICULOCYTES BLOOD Specimen Type: BLOOD No comment entered. Ordering Provider: MICHA WRIGHT Report Released Date/Time: Apr 24, 2024 10:00 AM Reporting [facility] [address] [address] Performing Lab: [address] [address] RETIC % 3.2 H 0.6-2.0 RETIC, ABS 127.3 10*3/uL H 30.0-90.0 RET-HE 33.3 pg 27.9-42.0 Apr 24, 2024 10:59 AM [facility] LIPID PANEL FASTING SERUM Specimen Ty pe: SERUM No comment entered. Ordering Provider: MICHA WRIGHT Report Released Date/Time: Apr 24, 2024 10:00 AM Reporting [facility] [address] [address] Performing Lab: [address] [address] CHOLESTEROL 139 mg/dL TRIGLYCERIDE 61 mg/dL 0-150 LDL calculated 76 mg/dL 0-129 CHOL/HDL 2.7 HDL CHOLESTEROL 51 mg/dL 40-60 Apr 24, 2024 10:59 AM [facility] HEMOGLOBIN A1C PANEL BLOOD Specimen T ype: BLOOD Comment: Values obtained from A1C measurements can vary. For atypical A1C assays, a reported value of 7.0 could actually be between 6.72 and 7.28 if measured by a reference method. A reported value of 9.0 could actually be between 8.73 and 9.27. Ref: http://www.ngsp.org/CAPdata.asp Ordering Provider: MICHA WRIGHT Report Released Date/Time: Apr 24, 2024 10:00 AM Reporting Lab: [address] [address] Performing Lab: [address] [address] HEMOGLOBIN A1C 4.4 4.0-5.6 Apr 24, 2024 10:59 AM [facility] LIVER FUNCTION SERUM Specimen Type: SERUM No comment entered. Ordering Provider: MICHA WRIGHT Report Released Date/Time: Apr 24, 2024 10:00 AM Reporting Lab: [address] [address] Performing Lab: [address] [address] PROTEIN,TOTAL 6.6 g/dL 6.0-8.3 ALBUMIN 4.0 g/dL 3.5-5.0 ALKALINE PHOSPHATASE 77 U/L 40-150 AST 20 U/L 5-34 ALT 19 U/L BILIRUBIN, TOTAL 1.2 mg/dL 0.2-1.2 BILIRUBIN, DIRECT 0.5 mg/dL 0-0.5 Apr 24, 2024 10:59 AM [facility] BASIC METABOLIC PANEL (non-fasting) SERUM Specimen Type: SERUM No comment entered. Ordering Provider: MICHA WRIGHT Report Released Date/Time: Apr 24, 2024 10:00 AM Reporting Lab: [address] [address] Performing Lab: [address] [address] UREA NITROGEN 10 mg/dL 7-25 GLUCOSE 97 mg/dL 65-100 SODIUM 138 mmol/L 135-145 POTASSIUM 3.6 mmol/L 3.5-5.0 CHLORIDE 104 mmol/L 100-110 CO2 26 meq/L 20-30 CREATININE, Serum 1.34 mg/dL 0.50-1.40 eGFR(CKD-EPI 2020) 60 mL/min >60 Apr 24, 2024 10:59 AM [facility] VITAMIN D (25-OH) SERUM Specimen Type: SERUM No comment entered. Ordering Provider: MICHA WRIGHT Report Released Date/Time: Apr 24, 2024 10:00 AM Reporting Lab: [facility] [address] [facility] [address] Performing [facility]: [facility] [address] VITAMIN D (25-OH) 34 ng/mL 20-50 Apr 24, 2024 10:59 AM [facility] CALCIUM SERUM Sp ecimen Type: SERUM No comment entered. Ordering Provider: MICHA WRIGHT Report Released Date/Time: Apr 24, 2024 10:00 AM Reporting Lab: [facility] [address] [address] Performing [facility]: [facility] [address] CALCIUM 8.6 mg/dL 8.5-10.2 Apr 24, 2024 10:59 AM [facility] AMYLASE SERUM Sp ecimen Type: SERUM No comment entered. Ordering Provider: MICHA WRIGHT Report Released Date/Time: Apr 24, 2024 10:09 AM Reporting Lab: [facility] [address] [facility] [address] Performing [facility]: [facility] [address] [address] AMYLASE 167 U/L H 25-125 Apr 24, 2024 10:59 AM [facility] LIPASE SERUM Sp ecimen Type: SERUM No comment entered. Ordering Provider: MICHA WRIGHT Report Released Date/Time: Apr 24, 2024 10:09 AM Reporting Lab: [facility] [place] [address] [address] Performing Lab: [place] [facility] [facility] [address] [facility] [address] LIPASE 140 U/L H 8-82 Vital Signs: All taken on the encounter date This section contains inpatient and outpatient Vital Signs collected on the date of the Encounter. Date/Time Temperature Pulse Blood Pressure Respiratory Rate SP02 Pain Height Weight Body Mass Index Source Apr 24, 2024 10:54 AM 97.8 90 134/92 18 99 160 24 [facility] IE Immunizations: All administered on the encounter date This section contains immunizations associated to the Encounter. Immunization Series Date Issued Administered By Site Reaction Lot Number CVX Code Drug Amusement Ride Inspector Comment(s) Source INFLUENZA, SPLIT VIRUS, TRIVALENT, PF Apr 24, 2024 MELVA VILLAFANA LEFT DELTO ID [id number] GLAXOSMITHKLI OLYA Noriega AT [facility] IELD Advance Directives: All historical and current Section Date Range: From patient's date of to the date document was created. This section includes ALL of a patient's completed or amended [place] Advance and Rescinded Directives. The entries below indicate that a directive exists for the patient, but an actual copy is not included with this document. The data comes from all [place] facilities. Date Advance Directives Provider Source Jan 05, 2022 ADVANCE DIRECTIVE MELISSA CLINE [facility] Feb 21, 2018 ADVANCE DIRECTIVE MINESH HERBERT [facility] Encounter Notes: All associated encounter notes This section contains the clinical notes associated to the Encounter. Date/Time Encounter Note(s) Provider Source Jul 04, 2024 10:41 AM MEDICATION MGT NOT E: LOCAL TITLE: OUTPATIENT MEDICATION REQUEST STANDARD TITLE: MEDICATION MGT NOTE DATE OF NOTE: JUL 04, 2024@10:41 ENTRY DATE: JUL 04, 2024@10:41:45 AUTHOR: GABRIEL MORENO EXP COSIGNER: URGENCY: STATUS: COMPLETED Medication Request Date of Request: Jun Is this a New Medication? No Renew for METOPROLOL SUCCINATE TAB,SA 25MG TAKE ONE TABLET BY MOUTH ONCE DAILY FOR BLOOD PRESSURE/HEART Quantity: 90 Refills: 2 Indication: FOR HIGH BLOOD PRESSURE HYDROCHLOROTHIAZIDE TAB 25MG TAKE ONE-HALF TABLET BY MOUTH ONCE DAILY TO PREVENT FLUID/CONTROL BLOOD PRESSURE Quantity: 45 Refills: 2 Indication: FOR HIGH BLOOD PRESSURE /es/ Gabriel Moreno RN Registered Nurse (RN) Signed: 07/04/2024 10:45 Receipt Acknowledged By: 07/04/2024 11:03 /juan carlos/ MICHA WRIGHT PA-C STAFF PHYSICIAN ELECTRICAL LOGGER GABRIEL MORENO Apr 26, 2024 11:52 AM TELEPHONE ENCOUNTE R NOTE: LOCAL TITLE: TELEPHONE NOTE/PA STANDARD TITLE: TELEPHONE ENCOUNTER NOTE DATE OF NOTE: APR 26, 2024@11:52 ENTRY DATE: APR 26, 2024@11:52:19 AUTHOR: MICHA WRIGHT EXP COSIGNER: URGENCY: STATUS: COMPLETED i xajyoti spoke to ptc h pylori positive rx: eradication tx [facility] /juan carlos/ MICHA WRIGHT PA-C STAFF PHYSICIAN ELECTRICAL LOGGER Signed: 04/26/2024 11:53 MICHA WRIGHT Apr 24, 2024 10:09 AM PREVENTIVE MEDICIN E NURSING NOTE: LOCAL TITLE: CLINICAL REMINDERS/NURSING STANDARD TITLE: PREVENTIVE MEDICINE NURSING NOTE DATE OF NOTE: APR 24, 2024@10:09 ENTRY DATE: APR 24, 2024@10:09:56 AUTHOR: RASHMI VILLAFANA EXP COSIGNER: URGENCY: STATUS: COMPLETED CLINICAL REMINDERS/NURSING Has ADDENDA Influenza Immunization: Influenza, Trivalent, Preservative Free (Fluarix-Syringe) Administered: INFLUENZA, SPLIT VIRUS, TRIVALENT, PF Date Administered: Apr 24, 2024 10:00 Amusement Ride Inspector: [employer] Lot: [id number] Exp Date: Nov 19, 2024 [facility]: [id number] Admin Route/Site: INTRAMUSCULAR/LEFT DELTOID Dosage: 0.5mL Vaccine Information Statement(s): INFLUENZA(FLU) VACC(INACTIVATED OR RECOMBINANT)VIS Dec 26, 2020 (ZAMBIAN) Order By: Policy Administered By: Rashmi Villafana The Influenza Vaccine Information Statement (VIS) was reviewed with the patient/caregiver which lists the benefits and risks of the vaccine and the risks of not receiving the Influenza vaccine. The patient/caregiver denied any prior severe reaction to this vaccine or its components or a severe allergic reaction, such as anaphylaxis, to any vaccine or any injectable therapy. The patient/caregiver gave verbal consent to receive the vaccine. Pneumococcal PPSV23 (Pneumovax): The patient declines to receive the recommended dose of PPSV23 vaccine. Immunization: PNEUMOCOCCAL POLYSACCHARIDE PPV23 Refusal Reason: PATIENT DECISION Patient refuses all immunization(s) in the PneumoPPV group Comment: Will get at next pcp visit, 1 vaccine today Date Documented: 04/24/24 10:47 Hepatitis A Vaccine for High Risk: Patient declines/refuses Hepatitis A immunization Immunization: HEP A, UNSPECIFIED FORMULATION Refusal Reason: PATIENT DECISION Patient refuses all immunization(s) in the HepA group Date Documented: 04/24/24 10:47 The patient declines to have Hepatitis A serology done. Reason: /juan carlos/ RASHMI VILLAFANA LPN LICENSED PRACTICAL NURSE Signed: 04/24/2024 10:53 04/24/2024 ADDENDUM STATUS: COMPLETED HTN Assess for Elevated BP>=140/90: The patient declines the recommended changes in medications to improve blood pressure control. Comment: just anxious today The patient was counseled on the importance of diet and weight loss/ control in the regulation of blood pressure. The contribution of dietary sodium to elevated blood pressure was reviewed. The patient was counseled to have a goal sodium intake of 1500mg per day, with no more than 2300mg per day. The patient was counseled that a diet low in dietary saturated and trans fats is beneficial in lowering blood pressure. /mary VILLAAFNA LPN LICENSED PRACTICAL NURSE Signed: 04/24/2024 10:57 RASHMI VILLAFANA MERCED Apr 24, 2024 10:00 AM PHYSICIAN BERRY Haddad NOTE: LOCAL TITLE: PA NOTE STANDARD TITLE: PHYSICIAN ELECTRICAL LOGGER NOTE DATE OF NOTE: APR 24, 2024@10:00 ENTRY DATE: APR 24, 2024@10:00:38 AUTHOR: MICHA WRIGHT EXP COSIGNER: URGENCY: STATUS: COMPLETED S - c/o excess gas in stomach belching alleviates sx no unintentional wt loss no dysphagia or odynphagia no hx anemia (will re-check labs today) no n/v no subjective complaint of enlarged lymph nodes anywhere no report of UGI bleed also - c/o I can my heart beat in my ear no ch pn or sob O - coop A&Ox3 NAD W-N/H/D EYES: anicteric OU NECK: no adeno LUNGS: resp full reg unlabored; CTA b/l COR: RRR, no M ABD: no distention not tender no peritoneal signs and neg Siddiqui's no mass, megaly A/P - 1) HTN - BP 136/94 2) Premature Atrial Fibrillation - HR 78 - on Metoprol SUCC - on HCTZ 3) Dyspepsia Not Acute ABD Not Cholecystitis Bolus Sensation - LES Motility Disorder - LABS: CBC, B12, BMP, LFT, Pancreatic Enzymes, H pylori, Celiac Sprue - CON: Diagnostic EGD ALSO: Due for Surveil Colonocopy (last one 2019); repeats every 5 yrs due to hx polyposis and a FH that + CRC) 4) (Probable) Premature Atrial Tachycardia (PAT) - CON: EKG (for ressurance) RTC prn this issues Medication Reconciliation: Outpatient: Has the patient been taking medications as documented in the EMLR? YES: The patient has been taking medications as documented in the EMLR. Essential Medication List for Review used to complete this medication reconciliation. INCLUDED IN THIS LIST: Alphabetical list of active outpatient prescriptions dispensed from this [place] (local) and dispensed from another [place] or [place] facility (remote) as well as [...] whether with a VA or non-VA provider. Avg Risk Colorectal Cancer Screen: AVERAGE RISK colorectal cancer screening is due based on information available to this clinical reminder Colorectal cancer screening already scheduled or in process of being scheduled. Comment: june 20 2024 /juan carlos/ MICHA WRIGHT PA-C STAFF PHYSICIAN ELECTRICAL LOGGER Signed: 04/24/2024 10:42 MICHA WRIGHT
[2024-10-19 14:14] VITALS: BMI 25.1
[2024-10-23 06:50] VITALS: BP 124/90; PULSE 81; RESP 17; TEMP 36.4; O2SAT 96; BMI 23.7
[2024-10-23] MEDS: Lactated Ringers 1,000 ML 100 ML IVCONT (07:11)
--- NOTE | 2024-10-23 07:33 | P.CONAN_ITS ---
Documented by User: Sara Bowen NP 10/22/24 12:10 HPI - Anesthesia Eval Consult details Narrative: 64yo M for Upper Endoscopy and Colonoscopy [facility] Active Problems Active Problems: All Active Problems History of anal dysplasia (Acute) HIV (human immunodeficiency virus infection) (Acute) Osteoporosis (Acute) H/O chlamydia infection (Acute) Anal dysplasia (Acute) Hypertension (Acute) H/O: CVA (cerebrovascular accident) (Acute) Past Medical History Medical History (Updated 10/19/24 @ 14:07 by Ana Eric RN) CKD (chronic kidney disease) stage 3, GFR 30-59 ml/min History of anal dysplasia Osteoporosis H/O chlamydia infection Anal dysplasia Hypertension H/O: CVA (cerebrovascular accident) HIV (human immunodeficiency virus infection) Family History Family History Mother Lung cancer Father Prostate cancer Surgical History Surgical History (Updated 10/19/24 @ 14:07 by Ana Eric RN) H/O colonoscopy History of testicular surgery Social History Social History Alcohol intake: current Alcohol intake frequency: does not drink Patient Tobacco Use Status: Never used Tobacco Have you been hit, kicked, punched, or otherwise hurt by someone within the past year? If so, by whom?: No Are you DNR?: No Advance Directives: No Advance Directives Information Provided: Yes Meds Allergies Allergy/AdvReac Type Severity Reaction Status Date / Time lisinopril Allergy Unknown swollen Uncoded 07/02/24 14:25 legs Home Medications ?Medication ?Instructions ?Recorded ?Confirmed ?Last Taken ?Type alendronate 10 mg tablet 10 mg PO DAILY 10/19/24 10/19/24 Unknown History aspirin 81 mg tablet,delayed 81 mg PO DAILY 10/19/24 10/19/24 10/21/24 History release atorvastatin 40 mg tablet 40 mg PO DAILY 10/19/24 10/19/24 Unknown History cholecalciferol (vitamin D3) 50 50 mcg PO DAILY 10/19/24 10/19/24 Unknown Histo ry mcg (2,000 unit) capsule (Vitamin D3) cyanocobalamin (vitamin B-12) 100 100 mcg PO DAILY 10/19/24 10/19/24 Unknown History mcg tablet (Vitamin B-12) hydrochlorothiazide 25 mg tablet 25 mg PO DAILY 10/19/24 10/19/24 Unknown History metoprolol succinate 25 mg 25 mg PO DAILY 10/19/24 10/19/24 10/23/24 History tablet,extended release 24 hr Exam Height,Weight and Vital Signs: Height 5 ft 7 in Weight 72.575 kg Assessment and Plan Assessment Anesthesia Assessment: Chart Reviewed Documented by User: Kayy Nguyen DO 10/23/24 07:34 HPI - Anesthesia Eval Consult details Narrative: 64yo M for Upper Endoscopy and Colonoscopy Hx of CVA - no residual weakness PMFSH Past Medical History Medical History (Updated 10/19/24 @ 14:07 by Ana Eric RN) CKD (chronic kidney disease) stage 3, GFR 30-59 ml/min History of anal dysplasia Osteoporosis H/O chlamydia infection Anal dysplasia Hypertension H/O: CVA (cerebrovascular accident) HIV (human immunodeficiency virus infection) Family History Family History Mother Lung cancer Father Prostate cancer Family history of problems with anesthesia: No Surgical History Surgical History (Updated 10/19/24 @ 14:07 by Ana Eric RN) H/O colonoscopy History of testicular surgery History of Problems with Anesthesia: No Social History Social History Alcohol intake: current Alcohol intake frequency: does not drink Patient Tobacco Use Status: Never used Tobacco Have you been hit, kicked, punched, or otherwise hurt by someone within the past year? If so, by whom?: No Are you DNR?: No Advance Directives: No Advance Directives Information Provided: Yes Meds Allergies Allergy/AdvReac Type Severity Reaction Status Date / Time lisinopril Allergy Unknown swollen Uncoded 07/02/24 14:25 legs Home Medications ?Medication ?Instructions ?Recorded ?Confirmed ?Last Taken ?Type alendronate 10 mg tablet 10 mg PO DAILY 10/19/24 10/19/24 Unknown History aspirin 81 mg tablet,delayed 81 mg PO DAILY 10/19/24 10/19/24 10/21/24 History release atorvastatin 40 mg tablet 40 mg PO DAILY 10/19/24 10/19/24 Unknown History cholecalciferol (vitamin D3) 50 50 mcg PO DAILY 10/19/24 10/19/24 Unknown History mcg (2,000 unit) capsule (Vitamin D3) cyanocobalamin (vitamin B-12) 100 100 mcg PO DAILY 10/19/24 10/19/24 Unknown History mcg tablet (Vitamin B-12) hydrochlorothiazide 25 mg tablet 25 mg PO DAILY 10/19/24 10/19/24 Unknown History metoprolol succinate 25 mg 25 mg PO DAILY 10/19/24 10/19/24 10/23/24 History tablet,extended release 24 hr Exam Exam Date and Time: 10/23/24 0730 Height,Weight and Vital Signs: Height 5 ft 7 in Weight 72.575 kg Vital Signs Temperature 97.5 F 10/23/24 06:50 Pulse Rate 81 10/23/24 06:50 Respiratory Rate 17 10/23/24 06:50 Blood Pressure 124/90 H 10/23/24 06:50 Pulse Oximetry 96 10/23/24 06:50 Oxygen Delivery Method Room Air 10/23/24 06:50 Temperature 97.5 F 10/23/24 06:50 Pulse Rate 81 10/23/24 06:50 Respiratory Rate 17 10/23/24 06:50 Blood Pressure 124/90 H 10/23/24 06:50 Pulse Oximetry 96 10/23/24 06:50 Oxygen Delivery Method Room Air 10/23/24 06:50 Airway Mallampati Class: I TM Dist: >3cm Neck ROM: Full Loose/Missing/Broken Teeth: No (patient denies any loose or broken teeth) Heart: S1S2 Lungs: CTAB Assessment and Plan Assessment Anesthesia Assessment: Anesthesia Plan Discussed and Chart Reviewed Final Anesthetic Review Family History of Problems with Anesthesia: No History of Problems with Anesthesia: No NPO: Yes ASA Class: III Final Preanesthetic Review: No Changes in Pt Med Stat, Meds/Allgs Chart Reviewed, Consent Obtained/Reviewed and Anes Risks/Benef Reviewed Patient Risk: Low Procedure Risk: Low Anesthetic Plan Anesthetic Plan: MAC: and Agree w/ Assess. and Plan Disposition: Standard PACU
--- NOTE | 2024-10-23 08:06 | MHC.SHP ---
Pre-Procedural Eval Section A - 24 Hr Update-Section A only Date of Service: 10/23/24 Section B - Complete if H&P > 30 days Chief Complaint: Encounter for screening for malignant neoplasm of Details of Present Illness: see H&P no changes Relevant Family History (Specify if Yes): No Relevant Social History: None Present Medications: see Short Stay Collaborative assessment Medical History: No relevant PMH History of Previous Operations: No relevant previous surgery Allergies: Allergies Allergy/AdvReac Type Severity Reaction Status Date / Time lisinopril Allergy Unknown swollen Uncoded 07/02/24 14:25 legs Review of Systems Sugical H&P ROS: Negative: Constitution, Cardiovascular, Respiratory, Neurological, Psychiatric, Hem-Onc, Allergic/Immunologic, Gastrointestinal, Genitourinary, Musculoskeletal, Integumentary, Endocrine and Eyes/Ears/Nose/Throat Exam Surgical H&P Exam: Normal: HEENT, Normal: Heart, Normal: Lungs, Normal: Extremities, Normal: Abdomen, Normal: Skin and Normal: Neurological Plan Diagnosis/Plan: Unchanged I have reviewed the history and physical and performed a pertinent physical examination on my patient. No changes have occurred unless specified. Time Spent With Patient Time: Total time managing care of this patient today ____ minutes.
[2024-10-23 08:53] VITALS: BP 108/77; PULSE 56; RESP 16; TEMP 36.6; O2SAT 97
[2024-10-23 09:07] VITALS: BP 123/83; PULSE 60; RESP 18; TEMP 36.2; O2SAT 97
--- NOTE | 2024-10-23 09:07 | OP_ITS ---
DATE OF SERVICE: 10/23/2024 SURGEON: Gregg Henry MD INDICATIONS: 1. Epigastric pain. 2. Colon cancer screening. PREOPERATIVE DIAGNOSIS: POSTOPERATIVE DIAGNOSIS: PROCEDURE PERFORMED: ESTIMATED BLOOD LOSS: COMPLICATIONS: ANESTHESIA: Monitored anesthesia care. ASSISTANTS: SPECIMENS: PROCEDURES PERFORMED: Upper endoscopy with biopsy, colonoscopy to the terminal ileum. DESCRIPTION OF PROCEDURE: A history and physical was performed. The risks and benefits of the procedure were explained to the patient and informed consent was obtained. The patient was placed in the left lateral decubitus position. The Olympus video gastroscope was introduced into the esophagus, stomach, and duodenum. Examination was performed. The scope was removed. He was repositioned for colonoscopy. A digital rectal exam was performed and was found to be normal. The Olympus pediatric video colonoscope was introduced into the rectum and advanced to the cecum. The cecum was identified by transillumination, palpation, and identification of ileocecal valve. Examination was performed and the scope was removed. He tolerated the procedure well and was taken to recovery room in stable condition. FINDINGS: Upper endoscopy. 1. Esophagus: The esophagus was normal. There was no esophagitis. 2. Stomach: The stomach showed no evidence of masses, ulcers, or polyps. 3. Duodenum: The bulb and 2nd portion were normal. Biopsies were obtained from the EG junction and antrum Colonoscopy: The terminal ileum was examined and appeared normal. Visualized colonic mucosa was normal. The quality of prep was good. No polyps were identified. There was no evidence of anal condyloma on retroflex examination. IMPRESSION: 1. Abdominal pain/gastroesophageal reflux disease. 2. Normal colonoscopy. RECOMMENDATIONS: 1. Follow up the biopsy results. 2. Repeat colonoscopy is recommended in 10 years for average-risk individuals. MD JANAE Campos/VIPULL / [id number]
== END 2024-10-23 09:28 | disposition home or self-care (01) ==
PROVIDERS: PCP Physician Assistant Medical; Visit Provider Internal Medicine Gastroenterology
PROC: (CPT 45378; principal; 2024-10-23 08:20)
DX: Z12.11 Encounter for screening for malignant neoplasm of colon (principal); Z86.0101 Personal history of adenomatous and serrated colon polyps; Z83.719 Family history of colon polyps, unspecified; R14.3 Flatulence; R10.13 Epigastric pain; K21.9 Gastro-esophageal reflux disease without esophagitis; K29.50 Unspecified chronic gastritis without bleeding; I12.9 Hypertensive chronic kidney disease with stage 1 through stage 4 chronic kidney disease, or unspecified chronic kidney disease; N18.30 Chronic kidney disease, stage 3 unspecified; B20 Human immunodeficiency virus [HIV] disease; Z86.73 Personal history of transient ischemic attack (TIA), and cerebral infarction without residual deficits; M81.0 Age-related osteoporosis without current pathological fracture; Z79.82 Long term (current) use of aspirin; Z79.899 Other long term (current) drug therapy; Z98.890 Other specified postprocedural states; Z88.5 Allergy status to narcotic agent
CPT/HCPCS: 45378; 43239; 88305; 88313; 88342; J2704

== ENCOUNTER 2024-12-20 10:51 | Outpatient (REF) | payer OTHER, SELFPAY ==
--- OUTSIDE RECORDS SUMMARY | 2024-05-28 06:30 | XMS_ITS | Encounter Summary ---
Author Name [facility] [place] [facility] [place] [facility] [place] Address [address] [place] [address] Care Team Providers Care Membership Secretary Name Role Phone MICHA WRIGHT Primary Care Provider UnavailMACIE Hansen Primary Care Provider UnavailKELLY Alves Unavailable Unavailable CHARITY ROMAN Unavailable Unavaila MENDEZ Rocha Unavailable Unavailable JENNIFER CALDERÓN Unavailable Unavailable VENANCIO VERGARA Unavailable Unavailable MENDEZ BADILLO Primary Care Provider Unavail able Selected Encounter This section includes the information on record at [place] for the Encounter. Date/Time Encounter Type Encounter Description Reason Provider Source May 28, 2024 10:30 AM OFFICE O/P EST MOD 30 MIN PRIMARY CARE/MEDICINE ICD-10-CM I10 Essential (primary) hypertension MICHA WRIGHT Evin Encounter Template Text not used by [place] Assessments - Encounter Diagnoses This section includes the primary and secondary diagnoses documented for the Encounter. Date/Time Primary/Secondary Diagnosis Diagnosis Name Provider Source May 28, 2024 11:15 AM PRIMARY Essential (primary) hypertension MICHA WRIGHT May 28, 2024 11:15 AM SECONDARY Chronic kidney disease, stage 3 unspecified MICHA WRIGHT May 28, 2024 11:15 AM SECONDARY Encounter for immunization TANYA EASLEY [place] May 28, 2024 11:15 AM SECONDARY Functional dyspepsia MICHA WRIGHT [place] Plan of Treatment: Future Appointments (+ 6 months) and Future Tests (+/- 45 days) The Plan of Treatment section includes future care activities for the [facility] [place] [facility] This section includes future appointments and future orders which are active, pending or scheduled. Future Appointments This section includes appointments that were scheduled to occur 6 months from the date of the Encounter, up to a maximum of 20 appointments. The data comes from all [place] treatment facilities. Appointment Date/Time Appointment Type Appointme nt Facility Name Jun 13, 2024 11:00 AM AMBULATORY - RE[facility]AB [facility] Jun 26, 2024 09:30 AM AMBULATORY - REHAB [facility] Jul 02, 2024 02:00 PM AMBULATORY - MEDICINE [facility] Jul 09, 2024 10:45 AM AMBULATORY - MEDICINE [facility] Aug 06, 2024 09:30 AM AMBULATORY - REHAB [facility] Nov 19, 2024 10:30 AM AM[facility]ATORY - [facility]INE [facility] Lab Results: +/- 30 days of the encounter This section includes the Chemistry and Hematology Lab Results on record with [place] for the patient. Radiology Reports and Pathology Reports are provided separately, in subsequent sections. Lab Results This section contains the Chemistry/Hematology Results that were resulted 30 days before or 30 daysafter the date of the Encounter. Date/Time Source Result Type Result - Unit Interpretation Reference Range Specimen Type Comment May 25, 2024 11:45 AM [place] VITAMIN D (25-OH) SERUM Specimen Type : SERUM No comment entered. Ordering Provider: MICHA WRIGHT Report Released Date/Time: Nov 01, 2023 02:33 PM Reporting Lab: [address] [address] Performing Lab: [address] [address] VITAMIN D (25-OH) 32 ng/mL 20-50 May 25, 2024 11:45 AM [place] CALCIUM SERUM Sp ecimen Type: SERUM No comment entered. Ordering Provider: MICHA WRIGHT Report Released Date/Time: Nov 01, 2023 02:33 PM Reporting Lab: [facility] [place] [facility] [address] [facility] [address] Performing Lab: [facility] [place] [facility] [address] [facility] [address] CALCIUM 9.9 mg/dL 8.5-10.2 May 25, 2024 11:45 AM [place] URIC ACID SERUM Sp ecimen Type: SERUM No comment entered. Ordering Provider: MICHA WRIGHT Report Released Date/Time: Nov 01, 2023 02:33 PM Reporting Lab: [facility] [place] [facility] [address] [facility] [address] Performing Lab: [facility] [place] [facility] [address] [facility] [address] URIC ACID 7.0 mg/dL 3.5-7.2 May 25, 2024 11:45 AM [place] PSA SERUM Sp ecimen Type: SERUM No comment entered. Ordering Provider: MICHA WRIGHT Report Released Date/Time: Nov 01, 2023 02:33 PM Reporting Lab: [facility] [place] [facility] [address] [facility] [address] Performing Lab: [facility] [place] [facility] [address] [facility] [address] PSA 0.71 ng/mL 0.00-4.00 May 25, 2024 11:45 AM [place] FERRITIN SERUM Sp ecimen Type: SERUM No comment entered. Ordering Provider: MICHA WRIGHT Report Released Date/Time: Nov 01, 2023 02:33 PM Reporting Lab: [facility] [place] [facility] [address] [facility] [address] Performing Lab: [place] [facility] [place] [address] [address] FERRITIN 100 ng/mL 20-300 May 25, 2024 11:45 AM [place] RETICULOCYTES BLOOD Specimen Type: BLOOD No comment entered. Ordering Provider: MICHA WRIGHT Report Released Date/Time: Nov 01, 2023 02:33 PM Reporting Lab: [facility] [place] [facility] [address] [facility] [address] Performing Lab: [facility] [place] [facility] [address] [facility] [address] RETIC % 2.2 H 0.6-2.0 RETIC, ABS 93.4 10*3/uL H 30.0-90.0 RET-HE 32.5 pg 27.9-42.0 May 25, 2024 11:45 AM [place] LIPID PANEL FASTING SERUM Specimen Ty pe: SERUM No comment entered. Ordering Provider: MICHA WRIGHT Report Released Date/Time: Nov 01, 2023 02:33 PM Reporting Lab: [address] [address] Performing Lab: [address] [address] CHOLESTEROL 176 mg/dL TRIGLYCERIDE 59 mg/dL 0-150 LDL calculated 107 mg/dL 0-129 CHOL/HDL 3.1 HDL CHOLESTEROL 57 mg/dL 40-60 May 25, 2024 11:45 AM [place] BASIC METABOLIC PANEL (fasting) SERUM Specimen Type: SERUM No comment entered. Ordering Provider: MICHA WRIGHT Report Released Date/Time: Nov 01, 2023 02:33 PM Reporting Lab: [address] [address] Performing Lab: [address] [address] UREA NITROGEN 13 mg/dL 7-25 GLUCOSE 93 mg/dL 65-100 SODIUM 138 mmol/L 135-145 POTASSIUM 4.4 mmol/L 3.5-5.0 CHLORIDE 102 mmol/L 100-110 CO2 27 meq/L 20-30 CREATININE, Serum 1.45 mg/dL H 0.50-1.40 eGFR(CKD-EPI 2020) 54 mL/min L >60 May 25, 2024 11:45 AM [place] LIVER FUNCTION SERUM Specimen Type: SERUM No comment entered. Ordering Provider: MICHA WRIGHT Report Released Date/Time: Nov 01, 2023 02:33 PM Reporting Lab: [address] [address] Performing Lab: [address] [address] PROTEIN,TOTAL 6.7 g/dL 6.0-8.3 ALBUMIN 3.9 g/dL 3.5-5.0 ALKALINE PHOSPHATASE 82 U/L 40-150 AST 27 U/L 5-34 ALT 22 U/L BILIRUBIN, TOTAL 0.9 mg/dL 0.2-1.2 May 25, 2024 11:45 AM [place] HEMOGLOBIN A1C PANEL BLOOD Specimen T ype: BLOOD Comment: Values obtained from A1C measurements can vary. For atypical A1C assays, a reported value of 7.0 could actually be between 6.72 and 7.28 if measured by a reference method. A reported value of 9.0 could actually be between 8.73 and 9.27. Ref: http://www.ngsp.org/CAPdata.asp Ordering Provider: MICHA WRIGHT Report Released Date/Time: Nov 01, 2023 02:33 PM Reporting Lab: [address] [address] Performing Lab: [address] [address] HEMOGLOBIN A1C 4.0 4.0-5.6 May 25, 2024 11:45 AM [place] TSH SERUM Sp ecimen Type: SERUM No comment entered. Ordering Provider: MICHA WRIGHT Report Released Date/Time: Nov 01, 2023 02:33 PM Reporting [facility]: [facility] [address] [address] Performing Lab: [facility] [address] [address] TSH 1.16 u[IU]/mL 0.35-5.00 May 25, 2024 11:45 AM [place] CBC AND DIFF (AUTO) BLOOD Specimen Ty pe: BLOOD No comment entered. Ordering Provider: MICHA WRIGHT Report Released Date/Time: Nov 01, 2023 02:33 PM Reporting Lab: [address] [address] Performing Lab: [address] [address] WBC 3.82 10*3/uL L 4.50-11.00 RBC 4.17 10*6/uL L 4.23-5.66 HGB 12.8 g/dL 12.8-17 HCT 39.4 39.2-50.4 MCV 94.5 fL 82-99 MCHC 32.5 g/dL 30.8-35.1 PLT 226 10*3/uL 140-360 RDW-CV 12.3 12.0-16.0 MONO, ABS 0.32 10*3/uL 0.30-1.10 MCH 30.7 pg 26.2-32.6 NEUT % 38.9 L 43.7-75.8 LYMPH % 48.2 H 14.0-42.3 MONO % 8.4 5.1-13.7 EOS % 2.9 0.4-6.8 BASO % 1.3 0.1-2.0 NEUT, ABS 1.49 10*3/uL L 2.20-7.60 LYMPH, ABS 1.84 10*3/uL 1.00-3.20 EOS, ABS 0.11 10*3/uL 0.03-0.44 BASO, ABS 0.05 10*3/uL 0.01-0.13 IMMATURE GRAN % 0.3 0.0-0.7 IMMATURE GRAN, ABS 0.01 10*3/uL 0.00-0.0 6 NRBC % 0.0 0.0-0.0 NRBC, ABS 0.00 10*3/uL 0.00-0.00 Immunizations: All administered on the encounter date This section contains immunizations associated to the Encounter. Immunization Series Date Issued Administered By Site Reaction Lot Number CVX Code Drug Pbx Repairer Comment(s) Source PNEUMOCOCCAL POLYSACCHARID E PPV23 May 28, 2024 MELVA EASLEY LEFT DELTO ID [id number] [employer] ADMINISTERE D AT [facility] IE Social History: Smoking Status (Most current) and Tobacco Use (All prior to encounter date) This section includes the most current, and the historical, smoking and tobacco- related health factors from the [place] facility where the Encounter took place. Current Smoking Status This section includes the most current smoking, or tobacco-related health factor, from the [place] facility where the Encounter took place. Date/Time Current Smoking Status Comment Jenny alexander May 28, 2024 10:30 AM IN-TOBACCO NEVER USED CIGARETTES [place] Tobacco Use History This section includes a history of the smoking, or tobacco-related health factors, that were collected on or before the date of the Encounter. The data comes from the [place] facility where the Encounter took place. Date/Time Smoking Status/Tobacco Use Comment F acility May 28, 2024 10:30 AM IN-TOBACCO NEVER USED OTHER TYPE [place] Advance Directives: All historical and current Section Date Range: From patient's date of to the date document was created. This section includes ALL of a patient's completed or amended [place] Advance and Rescinded Directives. The entries below indicate that a directive exists for the patient, but an actual copy is not included with this document. The data comes from all [place] facilities. Date Advance Directives Provider Source Jan 05, 2022 ADVANCE DIRECTIVE MELISSA CLINE [facility] Feb 21, 2018 ADVANCE DIRECTIVE MINESH HERBERT [facility] Encounter Notes: All associated encounter notes This section contains the clinical notes associated to the Encounter. Date/Time Encounter Note(s) Provider Source May 28, 2024 10:50 AM PREVENTIVE MEDICIN E NURSING NOTE: LOCAL TITLE: CLINICAL REMINDERS/NURSING STANDARD TITLE: PREVENTIVE MEDICINE NURSING NOTE DATE OF NOTE: MAY 28, 2024@10:50 ENTRY DATE: MAY 28, 2024@10:50:06 AUTHOR: RASHMI EASLEY EXP COSIGNER: URGENCY: STATUS: COMPLETED Advance Directive Screen MH AD: Patient has an Advance Directive on file at this [facility]. No updates are needed at this time. The patient received education about Advance Directives and written notification of his/her rights. Hepatitis B Serology/Immunization: The patient declines to have HBV serology done. Reason: 'Not today Pneumococcal PPSV23 (Pneumovax): Administered: PNEUMOCOCCAL POLYSACCHARIDE PPV23 Date Administered: May 28, 2024 10:30 Pbx Repairer: [employer] Lot: [id number] Exp Date: Apr 08, 2025 NDC: [id number] Admin Route/Site: INTRAMUSCULAR/LEFT DELTOID Dosage: 0.5mL Vaccine Information Statement(s): PPSV23 VIS Mar 21, 2019 ([facility]PALI) Order By: Policy Administered By: Rashmi Easley Vaccine Information Sheet (VIS) was given to the patient/caregiver, education regarding adverse reactions was discussed, as well as barriers to learning, if any, were acknowledged. Alcohol Use Screen (AUDIT-C): Alcohol Screen: SCREEN FOR ALCOHOL (AUDIT-C) An alcohol screening test (AUDIT-C) was negative (score=1). 1. How often did you have a drink containing alcohol in the past year? Consider a drink to be a 12 ounce can or bottle of regular beer, 8 ounces of malt liquor, a 5 ounce glass of table wine, or a 1.5 ounce shot of liquor (like scotch, gin, or vodka). Monthly or less 2. How many drinks containing alcohol did you have on a typical day when you were drinking in the past year? One or two drinks 3. How often did you have six or more drinks on one occasion in the past year? Never COVID-19 Immunization: Refused Moderna Monovalent COVID-19 vaccine Immunization: COVID-19 (MODERNA), MRNA, LNP-S, PF, 50 MCG/0.5 ML (AGES 12+ YEARS) Refusal Reason: PATIENT DECISION Patient refuses all immunization(s) in the COVID-19 group Comment: 1 Vaccine at a time Date Documented: 05/28/24 10:52 RSV Immunization: Respiratory Syncytial Virus (RSV) Vaccine: Refused Singly (RSV vaccine, adjuvanted, Arexvy). Immunization: RSV, RECOMBINANT, PROTEIN SUBUNIT RSVPREF3, ADJUVANT RECONSTITUTED, 0.5 ML, PF Refusal Reason: PATIENT DECISION Patient refuses all immunization(s) in the RSV group Comment: 1 vaccine at a time Date Documented: 05/28/24 10:52 Hepatitis A Vaccine for High Risk: Patient declines/refuses Hepatitis A immunization Immunization: HEP A, UNSPECIFIED FORMULATION Refusal Reason: PATIENT DECISION Patient refuses all immunization(s) in the HepA group Date Documented: 05/28/24 10:53 The patient declines to have Hepatitis A serology done. Reason: /juan carlos/ RASHMI EASLEY LPN LICENSED PRACTICAL NURSE Signed: 05/28/2024 10:54 RASHMI EASLEY [place] May 28, 2024 10:46 AM PHYSICIAN BERRY Haddad NOTE: LOCAL TITLE: [place] NOTE STANDARD TITLE: PHYSICIAN COMBINATION OPERATOR NOTE DATE OF NOTE: MAY 28, 2024@10:46 ENTRY DATE: MAY 28, 2024@10:46:28 AUTHOR: MICHA WRIGHT COSIGNER: URGENCY: STATUS: COMPLETED S - routine re-eval O - coop A&Ox3 NAD W-N/H/D HEENT: normocephalic NECK: supple mobile no bruits not tender and no adeno LUNGS: resp full reg unlabored; CTA b/l COR: RRR, no M ABD: soft, not tender no mass, megaly EXT: Shldr (L) - no deform, discolor, oedema symmetric, no atrophy no bony articular tenderness +mild soft-tissue tenderness, overlying deltoid ROM: abd and ext rotation reprodueces pain Lower Legs - no LLE or calf tenderness LABS: reviewed w/ pt A/P - 1) HTN - BP 134/84 - cont HCTZ - cont Metoprol SUCC 2) CKD Stage 3; eGFR 54 (but improved from previous 51); Creat 1.4 and K 4.4 in JUN 16 3) C/V Stable - never AK 4) h/o TIA 2016; None Since No Prolonged Adverse N/L Sequelae 5) Hypercholesterolemia - LDL 107 in JUN 16 6) On Anti-Coag Therapy?? YES (see below) NO - cont Lipitor; LFT's WNL - diet, wt 7) Normoglycemic 8) CBC Profile: Relative Leukopenia - WBC 3.82 in JUN 16 and was 3.28 in MAY 15 9) Health Maintenance - 10) Stress? - nothing untoward 12) MEDS: - Reconciled - Refilled - Annotating Any Med Changes as Indicated 13) I Spent 30 Minutes: - on history and physical exam - chart review, especially updating problem list with new relevant data - treatment planning, e.g., medication management, labs orders, imaging requests, consults as required - placing order (s) - any education germane to todays's visit (see A/P above) 14) GERD/Dyspepsia - pending Diagnost EGD and Colonoscopy - H pylori ++ in MAY 15 - Eradication Regimen Completed RTC NOVEMBER 14 - labs before Alcohol Use Screen (AUDIT-C): Alcohol Screen: SCREEN FOR ALCOHOL (AUDIT-C) An alcohol screening test (AUDIT-C) was negative (score=1). 1. How often did you have a drink containing alcohol in the past year? Consider a drink to be a 12 ounce can or bottle of regular beer, 8 ounces of malt liquor, a 5 ounce glass of table wine, or a 1.5 ounce shot of liquor (like scotch, gin, or vodka). Monthly or less 2. How many drinks containing alcohol did you have on a typical day when you were drinking in the past year? One or two drinks 3. How often did you have six or more drinks on one occasion in the past year? Never Medication Reconciliation: Outpatient: Has the patient been taking medications as documented in the EMLR? YES: The patient has been taking medications as documented in the EMLR. Essential Medication List for Review used to complete this medication reconciliation. INCLUDED IN THIS LIST: Alphabetical list of active outpatient prescriptions [facility]ensed from this [facility] (local) and dispensed from another [place] or DoD facility (remote) as well as inpatient orders (local, pending and active), local clinic medications, locally documented non-VA medications, and local prescriptions that have or been discontinued in the past 90 days. - All changes in medications, including all non-VA/Herbal/OTC medications were entered into CPRS. Changes: nt - If there were any medications the patient should no longer take, they were discontinued. - The patient/caregiver was instructed to update this list, discard old lists, and take this list to the next appointment, whether with a VA or non-VA provider. Tobacco Use Screening: The patient has never smoked cigarettes. The patient has never used other types of tobacco. Suicide Screen: C-SSRS Screening [place]-Suicide Severity Rating Scale (C-SSRS Screener) 1. Over the past month, have you wished you were or wished you could go to sleep and not wake up? No 2. Over the past month, have you had any actual thoughts of killing yourself? No 3. Over the past month, have you been thinking about how you might do this? Response not required due to responses to other questions. 4. Over the past month, have you had these thoughts and had some intention of acting on them? Response not required due to responses to other questions. 5. Over the past month, have you started to work out or worked out the details of how to kill yourself? Response not required due to responses to other questions. 6. If yes, at any time in the past month did you intend to carry out this plan? Response not required due to responses to other questions. 7. In your lifetime, have you ever done anything, started to do anything, or prepared to do anything to end your life (for example, collected pills, obtained a gun, gave away valuables, went to the roof but didn't jump)? No 8. If YES, was this within the past 3 months? Response not required due to responses to other questions. Depression Screening: Perform PHQ-2 A PHQ-2 screen was performed. The score was 0 which is a negative screen for depression. Over the past two weeks, how often have you been bothered by the following problems? 1. Little interest or pleasure in doing things Not at all 2. Feeling down, depressed, or hopeless Not at all /es/ MICHA WRIGHT PA-C STAFF PHYSICIAN COMBINATION OPERATOR Signed: 05/28/2024 11:15 MICHA WRIGHT
--- OUTSIDE RECORDS SUMMARY | 2024-10-23 04:20 | XMS_ITS ---
Author Organization [facility] Address [address] [place] [address] Care Team Providers Care Protection Chief Industrial Plant Name Role Phone Hitesh Hopper Primary Care Provider Gregg Mckenzie Jr REASON FOR VISIT screening,epigastric pain Problems No Known Problems Encounters Encounter Location Date Provider Diagnosis [facility] Outpatient [address] [place], [place] [id number] 10/23/2024 Gregg Henry Jr Colon cancer screening [...] * DAYSI UNGER ADOB:1960 (64 yo M)Acc No.[id number]:10/23/2024 EGD and COL/MAC Patient: DAYSI DEE Provider: Ayaz Henry MD :1960 A ge:64 Y S ex:Male Date:10/23/2024 Address:[address] [place], [place] [id number] Pcp:Hitesh Hopper Subjective: * Chief Complaints: * 1 . Screening,epigastric pain. * Medical History: Objective: * Vitals: Assessment: * Assessment: 1. C olon cancer screening - Z12.11 (Primary) 2 . A bdominal pain, epigastric - R10.13 3 . G almaz-esophageal reflux disease without esophagitis - K21.9? Plan: * Treatment: * Procedure Codes: 4 5378 DIAGNOSTIC COLONOSCOPY, 12411 UPPER GI ENDOSCOPY, BIOPSY * * The named appointment provid er may or may not be the originator of this progress note, and it is not deemed complete until electronically signed by the appointment provider. Sign off status: Pending * Provider: Ayaz Henry MD Date: 0 10/23/2024 Generated for Les dao/Rakel/Shaynaitting on: 0 12/20/2024 11:40 AM EDT
--- OUTSIDE RECORDS SUMMARY | 2024-12-20 11:41 | XMS_ITS | Clinical Summary ---
Author Organization [employer] [facility] Address [address] [place] [address] Care Team Providers Care Service Parts Driver Name Role Phone Unavailable Primary Care Provider [...] Panel 1960 SDOH Screening 1960 Sigmoidoscopy 1960 Disability Screening 1960 Alcohol/Substance Use Screening 1973 Hepatitis C Screening 1979 Hepatitis A Vaccines (2 of 2 - Risk 2-dose series) 10/12/2011 04/13/2011 Hepatitis B Vaccines (1 of 3 - Risk 3-dose series) 2021 RSV Patients and Patients Aged 60 years or older (1 - Risk 60-74 years 1-dose series) 2021 COVID-19 Vaccine ( - 2023- season) 2024 05/25/2022, 10/05/2021, 04/20/2021, Additional history exists Dental Oral Exam 06/03/2024 12/01/2023 Tobacco Screening 11/30/2024 12/01/2023 Dental X-Ray: Bitewings 12/01/2024 12/01/2023 Influenza Vaccine (#1) 2025 , 01/05/2022, 02/29/2020, Additional history exists DTaP/Tdap/Td Vaccines (6 - Td or Tdap) 05/23/2025 05/23/2015, 05/23/2015, 05/23/2015, Additional history exists Dental X-Ray: Full Mouth 12/01/2026 12/01/2023 Meningococcal Vaccine (3 - Risk 2-dose series) 03/13/2027 03/13/2022, 03/13/2020, 12/20/2019 Pneumococcal Vaccine: 50+ Years (4 of 4 - PCV20 or PCV21) 05/28/2029 05/28/2024, 01/31/2018, 07/24/2013 Zoster Vaccines Completed 10/27/2017, 06/30/2017 HIB Vaccines Aged Out No longer eligi ble based on patient's age to complete this topic HPV Vaccines Aged Out No longer eligi ble based on patient's age to complete this topic IPV Vaccines Aged Out No longer eligi ble based on patient's age to complete this topic Meningococcal B Vaccine Aged Out No l onger eligible based on patient's age to complete [...]
[2024-12-21 15:53] LABS: HIV RNA PCR Qn Copies NOT DETECTED copies/mL (NOT DETECTED); HIV RNA PCR Qn Log Copies NOT DETECTED (NOT DETECTED)
[2024-12-25 16:58] LABS: Absolute CD3 Count 1657 cells/uL (840-3060); Absolute CD8 Count 1280 cells/uL (180-1170); Percent CD3 Cells 82 % (57-85); Percent CD8 Cells 63 % (12-42)
== END 2024-12-20 10:52 | disposition home or self-care (01) ==
LOC: HO.LAB 10:51
PROVIDERS: PCP Physician Assistant Medical; Visit Provider Internal Medicine
DX: B20 Human immunodeficiency virus [HIV] disease (principal)
CPT/HCPCS: 36415; 86359; 86360; 87536

== ENCOUNTER 2024-12-24 12:54 | Outpatient (AMB) | payer OTHER, SELFPAY ==
--- OUTSIDE RECORDS SUMMARY | 2024-10-23 04:20 | XMS_ITS ---
Author Organization [facility] Address [address] [place] [address] Care Team Providers Care Geography Head Name Role Phone Hitesh Hopper Primary Care Provider Gregg Mckenzie Jr [phone] REASON FOR VISIT screening,epigastric pain Problems No Known Problems Encounters Encounter Location Date Provider Diagnosis [facility] Out[facility] [address] [place], [place] [phone] 10/23/2024 Gregg Henry Jr Colon cancer screening [...] Information Progress Notes * DAYSI UNGER ADOB:1960 (64 yo M)Acc No.[id number]:10/23/2024 EGD and COL/MAC Patient: DAYSI DEE Provider: Ayaz Henry MD :1960 A ge:64 Y S ex:Male Date:10/23/2024 Address:[address] [place], [place] [phone] Pcp:Hitesh Hopper Subjective: * Chief Complaints: * 1 . Screening,epigastric pain. * Medical History: Objective: * Vitals: Assessment: * Assessment: 1. C olon cancer screening - Z12.11 (Primary) 2 . A bdominal pain, epigastric - R10.13 3 . G almaz-esophageal reflux disease without esophagitis - K21.9? Plan: * Treatment: * Procedure Codes: 4 5378 DIAGNOSTIC COLONOSCOPY, 33947 UPPER GI ENDOSCOPY, BIOPSY * * The named appointment provid er may or may not be the originator of this progress note, and it is not deemed complete until electronically signed by the appointment provider. Sign off status: Pending * Provider: Ayaz Henry MD Date: 0 10/23/2024 Generated for Les dao/Rakel/Shaynaitting on: 0 12/24/2024 01:13 PM EDT
--- NOTE | 2024-12-24 12:59 | MHC.OFFVIS ---
Vital Signs 12/24/24 13:07 Height 5 ft 7 in Weight 158 lb BMI 24.7 Pulse 60 Pulse Source Pulse Oximeter Pulse Oximetry (%) 95 Oxygen Delivery Method Room Air Intake Visit Reasons: 6 month hiv/rectal pap Allergies lisinopril Allergy (Unknown, Uncoded 12/26/24 08:58) swollen legs HPI HPI 6 month hiv/rectal pap: Details: He is doing well and viral load 12/20 is undetectable. He takes Juluca and renal function stable. He is seeing Dr Caruso for anal evaluation next week. [facility] Medical History CKD (chronic kidney disease) stage 3, GFR 30-59 ml/min History of anal dysplasia Osteoporosis H/O chlamydia infection Anal dysplasia Hypertension H/O: CVA (cerebrovascular accident) HIV (human immunodeficiency virus infection) Surgical History H/O colonoscopy History of testicular surgery Family History Mother Lung cancer Father Prostate cancer Social History Alcohol intake: current Alcohol intake frequency: does not drink Patient Tobacco Use Status: Never used Tobacco Review of Systems Const All systems reviewed & are unremarkable except as noted in HPI and below Physical Exam Vital Signs: Last Vital Signs Pulse 60 12/24/24 13:07 Pulse Ox 95 12/24/24 13:07 Oxygen Delivery Method Room Air 12/24/24 13:07 BMI result Body Mass Index 24.7 Const General: cooperative Orientation/consciousness: patient oriented x3 HEENT Head: Yes normal to inspection Mouth: Normal oral and palatal mucosa present Eyes General: appearance normal, both eyes and all related structures Pupils: Equal, round and reactive pupils present Resp Effort & Inspection: normal respiratory effort Cardio Rate: regular rate Rhythm: regular rhythm GI Palpation (GI): Soft to palpation and nontender General: Yes no CVA tenderness Back/Spine/Pelvis Back: no CVA tenderness Skin General skin exam: no rashes or lesions noted Neuro General: patient oriented x3 Cranial nerves: Yes CN's II-XII intact bilaterally and Yes Equal, round and reactive pupils present Extrem General: Yes normal to inspection Psych Appearance: grossly normal Assessment & Plan Assessment & Plan (1) Osteoporosis: Code(s): M81.0 - Age-related osteoporosis without current pathological fracture Category: Medical Plan: continue alendronate (2) History of anal dysplasia: Comment: Would continue Juluca Code(s): Z87.19 - Personal history of other diseases of the digestive system Category: Medical Plan: followup healthcare maintenance. (3) HIV (human immunodeficiency virus infection): Comment: He is doing well and has no complaints CD4 count and viral load are appropriate Code(s): B20 - Human immunodeficiency virus [HIV] disease Category: Medical Plan: Would continue Juluca Check CD4 count and viral load May 2025. See in June 2025. Coding Level of Care Code Est Pt Level 3 (90631) Diagnoses Osteoporosis M81.0 History of anal dysplasia Z87.19 HIV (human immunodeficiency virus infection) B20
[2024-12-24 13:07] VITALS: PULSE 60; O2SAT 95; BMI 24.7
--- OUTSIDE RECORDS SUMMARY | 2024-12-24 13:14 | XMS_ITS | Clinical Summary ---
Author Organization [facility] Address [address] [place] [address] Care Team Providers Care Correspondence Review Clerk Name Role Phone Unavailable Primary Care Provider [...]
== END 2024-12-24 13:32 | disposition home or self-care (01) ==
LOC: HO.HID 12:54
PROVIDERS: PCP Physician Assistant Medical; Visit Provider Internal Medicine
DX: M81.0 Age-related osteoporosis without current pathological fracture (principal); Z87.19 Personal history of other diseases of the digestive system; B20 Human immunodeficiency virus [HIV] disease
CPT/HCPCS: 99213

== ENCOUNTER → 2024-12-24 12:54 | Outpatient (BNVA) | payer OTHER, SELFPAY | PROVIDERS: PCP Physician Assistant Medical; Visit Provider Internal Medicine | DX: B20 Human immunodeficiency virus [HIV] disease (principal); M81.0 Age-related osteoporosis without current pathological fracture; Z87.19 Personal history of other diseases of the digestive system | CPT/HCPCS: 99212 ==

== ENCOUNTER 2024-12-26 08:51 | Outpatient (AMB) | payer OTHER, SELFPAY ==
--- OUTSIDE RECORDS SUMMARY | 2024-10-23 04:20 | XMS_ITS ---
Author Organization [facility] Address [address] [place] [address] Care Team Providers Care Avionics Test Technician Name Role Phone Hitesh Hopper Primary Care Provider Gregg Mckenzie Jr [phone] REASON FOR VISIT screening,epigastric pain Problems No Known Problems Encounters Encounter Location Date Provider Diagnosis [facility] Outpatient [address] [place], [place] [phone] 10/23/2024 Gregg Henry Jr Colon cancer screening [...] * DAYSI UNGER ADOB:1960 (64 yo M)Acc No.[id number]:10/23/2024 EGD and COL/MAC Patient: DAYSI DEE Provider: Ayaz Henry MD :1960 A ge:64 Y S ex:Male Date:10/23/2024 Address:[address] [place], [place] [id number] Pcp:Hitesh Hopper Subjective: * Chief Complaints: * 1 . Screening,epigastric pain. * Medical History: Objective: * Vitals: Assessment: * Assessment: 1. C olon cancer screening - Z12.11 (Primary) 2 . A bdominal pain, epigastric - R10.13 3 . G almaz-esophageal reflux disease without esophagitis - K21.9? Plan: * Treatment: * Procedure Codes: 4 5378 DIAGNOSTIC COLONOSCOPY, 96594 UPPER GI ENDOSCOPY, BIOPSY * * The named appointment provid er may or may not be the originator of this progress note, and it is not deemed complete until electronically signed by the appointment provider. Sign off status: Pending * Provider: Ayaz Henry MD Date: 0 10/23/2024 Generated for Les dao/Rakel/Shaynaitting on: 0 12/26/2024 09:01 AM EDT
--- NOTE | 2024-12-26 08:54 | A.OFFVIS_ITS ---
Vital Signs 12/26/24 09:00 Height 5 ft 7 in Weight 156 lb BMI 24.4 BP 141/88 H Blood Pressure Location Rt brachial Position Sitting Pulse 66 Intake Visit Reasons: 1 year follow up, malignant neoplasm of rectum Intake Note: Patient here for yearly follow up. Hx of anal dysplasia 3. Patient c/o: hemorrhoids not bothersome. Reports normal BM. Colonoscopy: Dr. Henry~ 10-23-2024 Phlebotomy Technician Required: No Accompanied by: Self / Same As Patient Allergies lisinopril Allergy (Unknown, Uncoded 12/26/24 08:58) swollen legs HPI HPI 1 year follow up, malignant neoplasm of rectum: Details: He has a history of AIN 3 in 2018 while he was in [place]. He had excision of this at that time and was told he had positive margins. He had moved to the area. I had done his anoscopy last June, and this was unremarkable. I last saw him a year ago in December, and he has anoscopy was unremarkable He denies any complaints with regards to his anus. He says that his viral load is undetectable. He is following Dr. Rivera of Infectious Disease. [facility] Medical History CKD (chronic kidney disease) stage 3, GFR 30-59 ml/min History of anal dysplasia Osteoporosis H/O chlamydia infection Anal dysplasia Hypertension H/O: CVA (cerebrovascular accident) HIV (human immunodeficiency virus infection) Surgical History H/O colonoscopy History of testicular surgery Family History Mother Lung cancer Father Prostate cancer Social History Alcohol intake: current Alcohol intake frequency: does not drink Patient Tobacco Use Status: Never used Tobacco Review of Systems Const Denies chills and Denies fever(s) Card Denies chest pain, Denies dyspnea and Denies dyspnea on exertion Resp Denies cough, Denies dyspnea and Denies dyspnea on exertion GI Denies hematochezia and Denies change in bowel habits Denies hematuria and Denies difficulty urinating Musc Denies back pain and Denies limited range of motion Neuro Denies focal weakness and Denies convulsions Psych Denies depression and Denies mood swings Physical Exam Vital Signs: Last Vital Signs Pulse 66 12/26/24 09:00 BP 141/88 H 12/26/24 09:00 BMI result Body Mass Index 24.4 Const General: comfortable and no acute distress Resp Effort & Inspection: normal respiratory effort Cardio Rate: regular rate GI Other: Rectal exam shows external hemorrhoids, non bulky, no perianal lesions Office Procedures Anoscopy He was in kneeling chris-knife position. The anoscope was gently inserted a full examination of the entire anal canal was done. He did have internal external hemorrhoid hemorrhoids which were bulky. There were no lesions seen with was no fissure ulceration. There was no induration on digital exam. There was no bleeding. [address] Assessment & Plan Assessment & Plan (1) History of anal dysplasia: Comment: Would continue Juluca Code(s): Z87.19 - Personal history of other diseases of the digestive system Category: Medical Plan: Surveillance anoscopy does not reveal any new lesions or any changes. He is doing well overall. He remains on Juluca in his viral load is undetectable. He continues to follow Dr Rivera. I will see him again in the office for a follow up anoscopy in year. Coding Level of Care Code Est Pt Level 3 (22828) Diagnoses History of anal dysplasia Z87.19 CPT Codes Details - CPT: 09839-Pozgxpcn ([id number])
[2024-12-26 09:00] VITALS: BP 141/88; PULSE 66; BMI 24.4
--- OUTSIDE RECORDS SUMMARY | 2024-12-26 09:01 | XMS_ITS | Clinical Summary ---
Author Organization [facility] Address [address] [place] [address] Care Team Providers Care Steamfitter Supervisor Name Role Phone Unavailable Primary Care [...]
== END 2024-12-26 09:13 | disposition home or self-care (01) ==
LOC: HO.HGS 08:51
PROVIDERS: PCP Physician Assistant Medical; Visit Provider Surgery
DX: Z87.19 Personal history of other diseases of the digestive system (principal)
CPT/HCPCS: 46600; 99213

== ENCOUNTER → 2024-12-26 08:51 | Outpatient (BNVA) | payer OTHER, SELFPAY | PROVIDERS: PCP Physician Assistant Medical; Visit Provider Surgery | DX: Z87.19 Personal history of other diseases of the digestive system (principal) | CPT/HCPCS: 46600; 99212 ==

== ENCOUNTER 2025-05-06 12:22 | Outpatient (REF) | payer OTHER, SELFPAY ==
--- OUTSIDE RECORDS SUMMARY | 2024-10-23 03:20 | XMS_ITS ---
Author Organization [facility] Address [address] [place] [address] Care Team Providers Care Casserole Preparer Name Role Phone Hitesh Hopper Primary Care Provider Gregg Mckenzie Jr REASON FOR VISIT screening,epigastric pain Problems No Known Problems Encounters Encounter Location Date Provider Diagnosis [facility] [place] [address] [place], [place] [phone] 10/23/2024 Gregg Henry Jr Colon cancer screening Z12.11 ; Abdominal pain, epigastric R10.13 and Gastro-esophageal reflux disease without esophagitis K21.9 Assessments Encounter Date Diagnosis (ICD Code) Assessment Notes Treatment Notes Treatment Clinical Notes Section Notes 10/23/2024 Colon cancer screening (ICD-10 - Z12.11) 10/23/2024 Abdominal pain, epigastric (ICD-10 - R10.13) 10/23/2024 Gastro-esophagea l reflux disease without esophagitis (ICD-10 - K21.9) Plan Of Treatment No Information Progress Notes * DAYSI UNGRE ADOB:1960 (65 yo M)Acc No.[id number]:10/23/2024 EGD and COL/MAC Patient: DAYSI DEE Provider: Ayaz Henry MD :1960 A ge:64 Y S ex:Male Date:10/23/2024 Address:[address] [place], [place] [id number] Pcp:Hitesh Hopper Subjective: * Chief Complaints: * S creening,epigastric pain Assessment: * Assessment: 1. C olon cancer screening - Z12.11 (Primary) 2 . A bdominal pain, epigastric - R10.13 3 . G almaz-esophageal reflux disease without esophagitis - K21.9? Plan: * Procedure Codes: 4 5378 DIAGNOSTIC [id number] UPPER GI ENDOSCOPY, BIOPSY Billing Information: * Procedure Codes: 25829 DIAGNOSTIC COLONOSCOPY. 60766 UPPER GI ENDOSCOPY, BIOPSY. * The named appointment provid er may or may not be the originator of this progress note, and it is not deemed complete until electronically signed by the appointment provider. Sign off status: Pending * Provider: Ayaz Henry MD Date: 0 10/23/2024 Generated for Les dao/Rakel/Shaynaitting on: 1 07/07/2024 05:54 PM EST
--- OUTSIDE RECORDS SUMMARY | 2025-05-06 17:54 | XMS_ITS | Clinical Summary ---
Author Organization [facility] Address [address] [place] [address] Care Team Providers Care Loft Worker Apprentice Name Role Phone Unavailable Primary Care Provider [...] Use Screening 1973 Hepatitis C Screening 1979 RSV Patients and Patients Aged 60 years or older (1 - Risk 50-74 years 1-dose series) 2011 Hepatitis A Vaccines (2 of 2 - Risk 2-dose series) 10/12/2011 04/13/2011 Hepatitis B Vaccines (1 of 3 - Risk 3-dose series) 2021 Dental Oral Exam 06/03/2024 12/01/2023 Tobacco Screening 11/30/2024 12/01/2023 Dental X-Ray: Bitewings 12/01/2024 12/01/2023 COVID-19 Vaccine ( season) 2025 05/25/2022, 10/05/2021, 04/20/2021, Additional history exists Influenza Vaccine (#1) 2025 , 01/05/2022, 02/29/2020, [...]
--- OUTSIDE RECORDS SUMMARY | 2025-05-06 17:54 | XMS_ITS | Patient Health Record ---
Author Organization [facility] Address [address] [place] [address] Care Team Providers Care Risk Engineer Name Role Phone Ruchi Hitesh Primary Care Provider Gregg Mckenzie Jr Allergies Allergen (clinical drug ingredient) Drug/Non Drug Allergy documented on EMR Reaction Allergy Type Onset Date Status lisinopril Lisinopril Unknown Drug Allergy Activ e Results Component Value Reference Range Notes Pathology Reviewed date:11/01/2024 08:58:39 AM Interpretation: Performing Lab:[facility], [address] [place] [phone] Notes/Report: Reason For Referral No Information Medications Medication SIG (Take, Route, Frequency, Duration) Notes Start Date End Date Status hydroCHLOROthiazide 25 MG Tablet 1 tablet in the morning Orally Once a day; Duration: 30 day(s) 09/03/2024 Active Metoprolol Succinate 25 MG Capsule ER 24 Hour Sprinkle 1 capsule Orally Once a day; Duration: 30 day(s) 09/03/2024 Active Atorvastatin Calcium 40 MG Tablet 1 tablet Orally Once a day; Duration: 30 day(s) 09/03/2024 Active Vitamin B 12 100 MCG Lozenge as directed Orally Active Juluca 50-25 MG Tablet 1 tablet with a m eal Orally Once a day; Duration: 30 day(s) 09/03/2024 Active Vitamin D3 2400 UNIT/ML Liquid as directed 025 Active Alendronate Sodium 10 MG Tablet 1 tablet 30 minutes before the first food, beverage or medicine of the day with plain water Orally Once a day; Duration: 30 day(s) 09/03/2024 Active Aspirin 81 81 MG Tablet Katie yed Release 1 tablet Orally Once a day; Duration: 30 day(s) 09/03/2024 Active Immunizations Vaccine Route Administration Date Status Comme nts Influenza Unknown 07/06/2023 Administered Social History Tobacco Use: Social History Observation Description Date Details (start date - stop date) Never Smoker NA - NA Social History Drug/Alcohol: Social Info Question Answer Notes AUDIT-C (Standard) Did you have a drink containing alcohol in the past year? No Points 0 Interpretation Negative Tobacco Use: Social Info Question Answer Notes Tobacco Control (Standard) Tobacco use: Nonsmoker Additional Details Category Social Info Options Details Miscellaneous: Marital status: single Problems No Known Problems Vital Signs Temperature 97.7 degrees Fahrenheit 09/03/2024 Blood pressure diastolic 01 mm Hg 09/03/2024 Height 67 in 09/03/2024 Blood pressure systolic 001 mm Hg 09/03/2024 Weight 160 lbs 09/03/2024 BMI 25.06 kg/m2 09/03/2024 Encounters Encounter Location Date Provider Diagnosis [facility] Outpatient [address] [place] [phone] 10/23/2024 Gregg Henry Jr Colon cancer screening Z12.11 ; Abdominal pain, epigastric R10.13 and Gastro-esophageal reflux disease without esophagitis K21.9 [facility] [address] [place] [phone] 09/03/2024 Gregg Henry Jr Epigastric pain R10.13 and Colon cancer screening Z12.11 [facility] [address] [place] [phone] 11/01/2024 Gregg Henry Jr Assessments Encounter Date Diagnosis (ICD Code) Assessment Notes Treatment Notes Treatment Clinical Notes Section Notes 10/23/2024 Colon cancer screening (ICD-10 - Z12.11) 10/23/2024 Abdominal pain, epigastric (ICD-10 - R10.13) 09/03/2024 Colon cancer screening (ICD-10 - Z12.11) [...] procedure. Follow-up will be pending these results. 10/23/2024 Gastro-esophage al reflux disease without esophagitis (ICD-10 - K21.9) Plan Of Treatment Future Test Test Name Order Date UPPER GI ENDOSCOPY 09/03/2024 COLONOSCOPY 09/03/2024 Insurance Providers Payer Name Payer Address Payer Phone Subscriber Number Group Number Insured Name Patient Relationship to Insured Coverage Start Date Coverage End Date [facility] [employer] [address] [place] [address] [id number] DAYSI UNGER Self - patient is the insured Medical (General) History Medical History History ICD Code CVA, Right eye visual field defect Hypertension HIV infection Osteoporosis Chronic kidney disease stage III Colonoscopy 2019, history of colon polyp s, 5-year follow-up Surgical History Surgery Date(Month/Year) testicular torsion
== END 2025-05-06 12:23 | disposition home or self-care (01) ==
LOC: HO.LAB 12:22
PROVIDERS: PCP Physician Assistant Medical; Visit Provider Internal Medicine
DX: B20 Human immunodeficiency virus [HIV] disease (principal)
CPT/HCPCS: 36415; 86592

== ENCOUNTER 2025-05-13 14:02 | Outpatient (AMB) | payer OTHER, SELFPAY ==
--- OUTSIDE RECORDS SUMMARY | 2024-10-23 03:20 | XMS_ITS ---
Author Organization [facility] Address [address] [place] [address] Care Team Providers Care Hand Laminator Name Role Phone Hitesh Hopper Primary Care Provider Gregg Mckenzie Jr REASON FOR VISIT screening,epigastric pain Problems No Known Problems Encounters Encounter Location Date Provider Diagnosis [facility] [place] [address] [place], [place] [phone] 10/23/2024 Gregg Henry Jr Colon cancer screening [...] Treatment No Information Progress Notes * DAYSI UNGER ADOB:1960 (65 yo M)Acc No.[id number]:10/23/2024 EGD and COL/MAC Patient: DAYSI DEE Provider: Ayaz Henry MD :1960 A ge:64 Y S ex:Male Date:10/23/2024 Address:[address] [place], [place] [phone] Pcp:Hitesh Hopper Subjective: * Chief Complaints: * S creening,epigastric pain Assessment: * Assessment: 1. C olon cancer screening - Z12.11 (Primary) 2 . A bdominal pain, epigastric - R10.13 3 . G almaz-esophageal reflux disease without esophagitis - K21.9? Plan: * Procedure Codes: 4 5378 DIAGNOSTIC [id number] UPPER GI ENDOSCOPY, BIOPSY Billing Information: * Procedure Codes: 31499 DIAGNOSTIC COLONOSCOPY. 43391 UPPER GI ENDOSCOPY, BIOPSY. * The named appointment provid er may or may not be the originator of this progress note, and it is not deemed complete until electronically signed by the appointment provider. Sign off status: Pending * Provider: Ayaz Henry MD Date: 0 10/23/2024 Generated for Les dao/Rakel/Shaynaitting on: 07/14/2024 05:30 PM EST
[2025-05-13 14:02] VITALS: PULSE 66; O2SAT 99; BMI 26.3
--- NOTE | 2025-05-13 14:02 | MHC.OFFVIS ---
Vital Signs 05/13/25 14:02 Height 5 ft 7 in Weight 168 lb BMI 26.3 Pulse 66 Pulse Source Pulse Oximeter Pulse Oximetry (%) 99 Oxygen Delivery Method Room Air Intake Visit Reasons: follow up 3 month RPR labs Allergies lisinopril Allergy (Unknown, Uncoded 05/13/25 14:09) swollen legs HPI HPI follow up 3 month RPR labs: Details: He is only here to review syphilis labs He has no complaints and no ulcers PFSH Medical History (Updated 05/15/25 @ 12:00 by Humaira Rivera MD) H/O syphilis CKD (chronic kidney disease) stage 3, GFR 30-59 ml/min History of anal dysplasia Osteoporosis H/O chlamydia infection Anal dysplasia Hypertension H/O: CVA (cerebrovascular accident) HIV (human immunodeficiency virus infection) Surgical History H/O colonoscopy History of testicular surgery Family History Mother Lung cancer Father Prostate cancer Social History Alcohol intake: current Alcohol intake frequency: does not drink Patient Tobacco Use Status: Never used Tobacco Review of Systems Const All systems reviewed & are unremarkable except as noted in HPI and below Physical Exam Vital Signs: Last Vital Signs Pulse 66 05/13/25 14:02 Pulse Ox 99 05/13/25 14:02 Oxygen Delivery Method Room Air 05/13/25 14:02 BMI result Body Mass Index 26.3 Resp Effort & Inspection: normal respiratory effort Cardio Rate: regular rate GI Inspection: Yes normal to inspection Assessment & Plan Assessment & Plan (1) HIV (human immunodeficiency virus infection): Comment: not addressed today Code(s): B20 - Human immunodeficiency virus [HIV] disease Category: Medical Plan: na (2) H/O syphilis: Comment: RPR negative No treatment,patient not interested in DoxyPrep Code(s): Z86.19 - Personal history of other infectious and parasitic diseases Category: Medical Plan: as above Coding Level of Care Code Est Pt Level 2 (47280) Diagnoses HIV (human immunodeficiency virus infection) B20 H/O syphilis Z86.19
--- OUTSIDE RECORDS SUMMARY | 2025-05-13 17:31 | XMS_ITS | Clinical Summary ---
Author Organization [facility] Address [address] [place] [address] Care Team Providers Care Emu Farmer Name Role Phone Unavailable Primary Care Provider Unavailabl e Social History Tobacco Use Types Packs/Day Years Used Date Smoking Tobacco: Never Assessed Sex and Gender Information Value Date Recorded Sex Assigned at Not on file Legal Sex Male 3:38 AM EST Gender Identity Not on file Sexual Orientation Not on file Plan of Treatment Not on file
--- OUTSIDE RECORDS SUMMARY | 2025-05-13 17:31 | XMS_ITS | Clinical Summary ---
Author Organization [facility] Address [address] [place] [address] Care Team Providers Care Tub Puller Name Role Phone Unavailable Primary Care Provider [...]
--- OUTSIDE RECORDS SUMMARY | 2025-05-13 17:31 | XMS_ITS | Patient Health Record ---
Author Organization [facility] Address [address] [place] [address] Care Team Providers Care Screen Door Maker Name Role Phone Ruchi Hitesh Primary Care Provider Gregg Mckenzie Jr Allergies Allergen (clinical drug ingredient) Drug/Non Drug Allergy documented on EMR Reaction Allergy Type Onset Date Status lisinopril Lisinopril Unknown Drug Allergy Activ e Results Component Value Reference Range Notes Pathology Reviewed date:11/01/2024 08:58:39 AM Interpretation: Performing Lab:[facility], [address] [place] [phone] Notes/Report: Reason For Referral No Information Medications [...] 09/03/2024 Encounters Encounter Location Date Provider Diagnosis [facility] [place] [address] [place] [phone] 10/23/2024 Gregg Henry Jr Colon cancer screening Z12.11 ; Abdominal pain, epigastric R10.13 and Gastro-esophageal reflux disease without esophagitis K21.9 [facility] [address] [place] [phone] 09/03/2024 Gregg Henry Jr Epigastric pain R10.13 and Colon cancer screening Z12.11 [facility] [address] [place] [phone] 11/01/2024 Gregg Henry Jr Assessments Encounter Date [...] Insured Coverage Start Date Coverage End Date [facility] [employer] [address] [place] [address] [id number] DAYSI UNGER Self - patient is the insured Medical (General) History Medical History History ICD Code CVA, Right eye visual field defect Hypertension HIV infection Osteoporosis Chronic kidney disease stage III Colonoscopy 2019, history of colon polyp s, 5-year follow-up Surgical History Surgery Date(Month/Year) testicular torsion
== END 2025-05-13 15:03 | disposition home or self-care (01) ==
LOC: HO.HID 14:02
PROVIDERS: PCP Physician Assistant Medical; Visit Provider Internal Medicine
DX: B20 Human immunodeficiency virus [HIV] disease (principal); Z86.19 Personal history of other infectious and parasitic diseases
CPT/HCPCS: 99212

== ENCOUNTER → 2025-05-13 14:02 | Outpatient (BNVA) | payer OTHER, SELFPAY | PROVIDERS: PCP Physician Assistant Medical; Visit Provider Internal Medicine | DX: B20 Human immunodeficiency virus [HIV] disease (principal); Z86.19 Personal history of other infectious and parasitic diseases | CPT/HCPCS: 99212 ==